=== PATIENT | female | born 1955 | race Hispanic/Latino ===

== ENCOUNTER 2017-08-25 17:02 | Inpatient (IN) | payer MEDICAID, OTHER ==
[2017-08-25] MEDS ORDERED: ZOFRAN IV ONE (19:11)
[2017-08-25] MEDS ORDERED: SUBLIMAZE IV ONE (19:11)
--- NOTE | 2017-08-25 19:13 | Emergency Department Report ---
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 CT SCAN IV pain medicine IV antiemetic medication and blood work.
[2017-08-25 20:10] LABS: Hematocrit 36.2 % (30.3-42.9); Hemoglobin 11.8 gm/dl (10.1-14.3); Mean Corpuscular HGB Conc 33 % (30-34); Mean Corpuscular Hemoglobin 28 pg (28-32); Mean Corpuscular Volume 86 fl (79-97); Platelet Count 410 K/mm3 (140-440); Red Blood Count 4.19 M/mm3 (3.65-5.03); Red Cell Distribution Width 14.5 % (13.2-15.2)
[2017-08-25 20:27] LABS: Alanine Aminotransferase 11 units/L (7-56); Albumin 3.5 g/dL (3.9-5); BUN/Creatinine Ratio 30; Blood Urea Nitrogen 24 mg/dL (7-17); Calcium 8.4 mg/dL (8.4-10.2); Hemolysis Index 8
[2017-08-25 21:02] LABS: Basophils % (Manual) 0 % (0.0-1.8); Total Cells Counted 100
[2017-08-25 21:02] LABS: Bilirubin,Urine NEG (Negative); Blood,Urine SM (Negative); Color,Urine Yellow (Yellow); Mucus,Urine FEW /HPF; Protein,Urine <15 mg/dL mg/dL (Negative); RBC,Urine < 1.0 /HPF (0.0-6.0); Urobilinogen,Urine < 2.0 mg/dL (<2.0)
[2017-08-25 21:03] LABS: Anisocytosis 1+
--- NOTE | 2017-08-25 21:03 | Emergency Department Report ---
ED Abdominal Pain HPI - General Chief Complaint: Abdominal Pain Stated Complaint: LEFT ABDOMINAL PAIN Time Seen by Provider: 08/25/17 19:12 Source: patient Mode of arrival: Ambulatory Limitations: No Limitations - History of Present Illness Initial Comments: Patient is 62-year-old female presents with left abdominal pain she says it's achy and it is a worst over the last couple days. She said that this possible happened from when she fell into the bushes yesterday. She said the fall was accidental. She also has nausea and vomiting. Patient reports that she was living in a boarding home and she was on insulin before she entered the boarding home a sliding scale with also metformin taken 3 times a day. She said they promised that they would get her primary care but she has not had a primary care and has not taken her medication for 3 months. She reports increased thirst and increased in frequency of urination. Patient said her mouth is dry. Pain to left lower quadrant of abdomen is 10 out of 10 and achy. No medication taken. She says she is very thirsty and she drinks a lot of water. Denies any pain with urination. Denies any blood in her urine. Denies any chest pain or shortness of breath. Denies any numbness or tingling to extremities. She said she also has lupus and she is to see Dr. Stout who diagnosed her. She said Dr. Stout is located close to [facility] and is a outreach rep. Her blood sugar is elevated in triage area [id number]. Abdominal pain is intermittent and comes and goes. Nothing makes it better and nothing makes it worse. She was not having any pain upon interview but she says she had pain earlier today. MD Complaint: abdominal pain Onset/Timin -: days(s) Location: [facility] Radiation: none Migration to: no migration Severity: severe Severity scale (0 -10): 10 Quality: aching Consistency: intermittent Improves With: nothing Worsens With: nothing Context: recent injury (she reports that she accidentally fell in bushes yesterday) Associated Symptoms: denies: nausea, vomiting, diarrhea, fever, chills, constipation, dysuria, hematemesis, hematochezia, melena, hematuria, anorexia, syncope Treatments Prior to Arrival: other (none) - Related Data Allergies Allergy/AdvReac Type Severity Reaction Status Date / Time No Known Allergies Allergy Unverified 08/25/17 17:15 ED Review of Systems ROS: Stated complaint: LEFT ABDOMINAL PAIN Other details as noted in HPI Comment: All other systems reviewed and negative Constitutional: no symptoms reported Respiratory: no symptoms reported Cardiovascular: denies: chest pain, palpitations, dyspnea on exertion, orthopnea , edema, syncope, paroxysmal nocturnal dyspnea Endocrine: increased hunger, increased thirst, increased urine, unexplained weight loss (she says she lost 18 pounds over the last 3 months due to poor diet ). denies: excessive sweating, flushing, intolerance to cold, intolerance to heat, unexplained weight gain Gastrointestinal: abdominal pain. denies: nausea, vomiting, diarrhea, constipation, hematemesis, melena, hematochezia Genitourinary: frequency. denies: urgency, dysuria, hematuria, discharge Musculoskeletal: denies: back pain, joint swelling, arthralgia, myalgia Skin: denies: rash Neurological: denies: headache, weakness, numbness, paresthesias, confusion, abnormal gait, vertigo ED Past Medical Hx - Past Medical History Previous Medical History?: Yes Hx Diabetes: Yes Additional medical history: Lupus - Surgical History Past Surgical History?: Yes Hx Cholecystectomy: Yes Hx Appendectomy: Yes - Family History Family history: hypertension - Social History Smoking Status: Former Smoker Substance Use Type: None ED Physical Exam - General Limitations: No Limitations General appearance: alert, in no apparent distress - Head Head exam: Present: atraumatic, normocephalic, normal inspection, other (normal exam) - Eye Eye exam: Present: normal appearance, PERRL, EOMI. Absent: periorbital swelling , periorbital tenderness Pupils: Present: normal accommodation - ENT ENT exam: Present: normal orophraynx, mucous membranes dry, TM's normal bilaterally, normal external ear exam. Absent: normal exam - Neck Neck exam: Present: normal inspection, full ROM, other (no C-spine tenderness). Absent: tenderness, meningismus, lymphadenopathy, thyromegaly - Respiratory Respiratory exam: Present: normal lung sounds bilaterally. Absent: respiratory distress, chest wall tenderness - Cardiovascular Cardiovascular Exam: Present: regular rate, normal rhythm, normal heart sounds. Absent: systolic murmur, diastolic murmur - GI/Abdominal GI/Abdominal exam: Present: soft, normal bowel sounds. Absent: distended, tenderness, guarding, rebound, rigid, organomegaly, mass, bruit, pulsatile mass , hernia - Extremities Exam Extremities exam: Present: normal inspection, full ROM, normal capillary refill , other (no clubbing, cyanosis or edema. No Neurovascular compromise. no laceration, abrasion or contusion. +2 pulses in extremities.). Absent: tenderness, pedal edema, joint swelling, calf tenderness - Back Exam Back exam: Present: normal inspection, full ROM, other (ambulates without any difficulties). Absent: tenderness, CVA tenderness (R), CVA tenderness (L), muscle spasm, paraspinal tenderness, vertebral tenderness, rash noted - Neurological Exam Neurological exam: Present: alert, oriented X3, normal gait, reflexes normal. Absent: motor sensory deficit - Psychiatric Psychiatric exam: Present: normal affect, normal mood - Skin Skin exam: Present: warm, dry, intact, normal color ED Course Vital Signs 08/25/17 08/26/17 08/26/17 17:15 00:28 00:30 Temperature 98.4 F Pulse Rate 109 H 111 H 103 H Respiratory 18 20 17 Rate Blood Pressure 140/65 O2 Sat by Pulse 96 99 96 Oximetry 08/26/17 08/26/17 08/26/17 00:46 01:00 01:16 Temperature Pulse Rate 100 H 91 H 88 Respiratory 19 20 16 Rate Blood Pressure O2 Sat by Pulse 98 98 96 Oximetry 08/26/17 08/26/17 08/26/17 01:30 01:46 02:00 Temperature Pulse Rate 87 88 90 Respiratory 21 18 19 Rate Blood Pressure O2 Sat by Pulse 94 95 94 Oximetry 08/26/17 08/26/17 08/26/17 02:16 02:30 02:46 Temperature Pulse Rate 86 87 87 Respiratory 19 18 21 Rate Blood Pressure 135/61 O2 Sat by Pulse 92 97 96 Oximetry 08/26/17 08/26/17 03:02 03:16 Temperature Pulse Rate Respiratory 22 20 Rate Blood Pressure O2 Sat by Pulse 97 Oximetry - Reevaluation(s) Reevaluation #1: 08/25/17 22:29 Patient with hyperglycemia, ketonuria, glycosuria, decreased CO2 and low venous pH. She is currently getting IV fluid normal saline 3 L and we'll check blood sugar but patient will be admitted Reevaluation #2: 03/28/18 23:12 Patient is still awaiting in CT scan result. She remained stable. Reevaluation #3: 08/26/17 00:[address] Rousseau who is hospitalist. She requested that patient be transferred to main side due to complexity of care. Patient will be admitted to hospital under Dr. rashawn Rousseau who is the hospitalist. Patient transferred to main side room #2 and to be started on insulin drip per Dr. Rousseau ED Medical Decision Making - Lab Data Result diagrams: 08/25/17 19:28 08/26/17 05:43 Lab Results 08/25/17 08/25/17 08/25/17 Range/Units 17:24 19:28 19:28 WBC 9.5 (4.5-11.0) K/mm3 RBC 4.19 (3.65-5.03) M/mm3 Hgb 11.8 (10.1-14.3) gm/dl Hct 36.2 (30.3-42.9) % MCV 86 (79-97) fl MCH 28 (28-32) pg MCHC 33 (30-34) % RDW 14.5 (13.2-15.2) % Plt Count 410 (140-440) K/mm3 Add Manual Diff Complete Total Counted 100 Seg Neuts % (Manual) 81.0 H (40.0-70.0) % Band Neutrophils % 0 % Lymphocytes % (Manual) 8.0 L (13.4-35.0) % Reactive Lymphs % (Man) 0 % Monocytes % (Manual) 8.0 H (0.0-7.3) % Eosinophils % (Manual) 3.0 (0.0-4.3) % Basophils % (Manual) 0 (0.0-1.8) % Metamyelocytes % 0 % Myelocytes % 0 % Promyelocytes % 0 % Blast Cells % 0 % Nucleated RBC % Not Reportable Seg Neutrophils # Man 7.7 (1.8-7.7) K/mm3 Band Neutrophils # 0.0 K/mm3 Lymphocytes # (Manual) 0.8 L (1.2-5.4) K/mm3 Abs React Lymphs (Man) 0.0 K/mm3 Monocytes # (Manual) 0.8 (0.0-0.8) K/mm3 Eosinophils # (Manual) 0.3 (0.0-0.4) K/mm3 Basophils # (Manual) 0.0 (0.0-0.1) K/mm3 Metamyelocytes # 0.0 K/mm3 Myelocytes # 0.0 K/mm3 Promyelocytes # 0.0 K/mm3 Blast Cells # 0.0 K/mm3 WBC Morphology Not Reportable Hypersegmented Neuts Not Reportable Hyposegmented Neuts Not Reportable Hypogranular Neuts Not Reportable Smudge Cells Not Reportable Toxic Granulation Not Reportable Toxic Vacuolation Not Reportable Dohle Bodies Not Reportable Pelger-Huet Anomaly Not Reportable Oliver Rods Not Reportable Platelet Estimate Appears normal Clumped Platelets Not Reportable Plt Clumps, EDTA Not Reportable Large Platelets Not Reportable Giant Platelets Not Reportable Platelet Satelliting Not Reportable Plt Morphology Comment Not Reportable RBC Morphology Not Reportable Dimorphic RBCs Not Reportable Polychromasia Not Reportable Hypochromasia Not Reportable Poikilocytosis Not Reportable Anisocytosis 1+ Microcytosis Not Reportable Macrocytosis Not Reportable Spherocytes Not Reportable Pappenheimer Bodies Not Reportable Sickle Cells Not Reportable Target Cells Not Reportable Tear Drop Cells Not Reportable Ovalocytes Not Reportable Helmet Cells Not Reportable Luna-[place] Bodies Not Reportable Gordon Rings Not Reportable Elisabet Cells Not Reportable Bite Cells Not Reportable Crenated Cell Not Reportable Elliptocytes Not Reportable Acanthocytes (Spur) Not Reportable Rouleaux Not Reportable Hemoglobin C Crystals Not Reportable Schistocytes Not Reportable Malaria parasites Not Reportable Vinicio Bodies Not Reportable Hem Pathologist Commnt No VBG pH (7.320-7.420) Sodium 129 L (137-145) mmol/L Potassium 4.8 (3.6-5.0) mmol/L Chloride 90.1 L (98-107) mmol/L Carbon Dioxide 16 L (22-30) mmol/L Anion Gap 28 mmol/L BUN 24 H (7-17) mg/dL Creatinine 0.8 (0.7-1.2) mg/dL Estimated GFR > 60 ml/min BUN/Creatinine Ratio 30 % Glucose 445 H (65-100) mg/dL POC Glucose 437 H (70-105) Calcium 8.4 (8.4-10.2) mg/dL Total Bilirubin 0.20 (0.1-1.2) mg/dL AST 9 (5-40) units/L ALT 11 (7-56) units/L Alkaline Phosphatase 121 (35-129) units/L Total Protein 7.1 (6.3-8.2) g/dL Albumin 3.5 L (3.9-5) g/dL Albumin/Globulin Ratio 1.0 % Urine Color (Yellow) Urine Turbidity (Clear) Urine pH (5.0-7.0) Ur Specific Mobile (1.003-1.030) Urine Protein (Negative) mg/dL Urine Glucose (UA) (Negative) mg/dL Urine Ketones (Negative) mg/dL Urine Blood (Negative) Urine Nitrite (Negative) Urine Bilirubin (Negative) Urine Urobilinogen (<2.0) mg/dL Ur Leukocyte Esterase (Negative) Urine WBC (Auto) (0.0-6.0) /HPF Urine RBC (Auto) (0.0-6.0) /HPF U Epithel Cells (Auto) (0-13.0) /HPF Urine Mucus /HPF 08/25/17 08/25/17 Range/Units 21:14 Unknown WBC (4.5-11.0) K/mm3 RBC (3.65-5.03) M/mm3 Hgb (10.1-14.3) gm/dl Hct (30.3-42.9) % MCV (79-97) fl MCH (28-32) pg MCHC (30-34) % RDW (13.2-15.2) % Plt Count (140-440) K/mm3 Add Manual Diff Total Counted Seg Neuts % (Manual) (40.0-70.0) % Band Neutrophils % % Lymphocytes % (Manual) (13.4-35.0) % Reactive Lymphs % (Man) % Monocytes % (Manual) (0.0-7.3) % Eosinophils % (Manual) (0.0-4.3) % Basophils % (Manual) (0.0-1.8) % Metamyelocytes % % Myelocytes % % Promyelocytes % % Blast Cells % % Nucleated RBC % Seg Neutrophils # Man (1.8-7.7) K/mm3 Band Neutrophils # K/mm3 Lymphocytes # (Manual) (1.2-5.4) K/mm3 Abs React Lymphs (Man) K/mm3 Monocytes # (Manual) (0.0-0.8) K/mm3 Eosinophils # (Manual) (0.0-0.4) K/mm3 Basophils # (Manual) (0.0-0.1) K/mm3 Metamyelocytes # K/mm3 Myelocytes # K/mm3 Promyelocytes # K/mm3 Blast Cells # K/mm3 WBC Morphology Hypersegmented Neuts Hyposegmented Neuts Hypogranular Neuts Smudge Cells Toxic Granulation Toxic Vacuolation Dohle Bodies Pelger-Huet Anomaly Oliver Rods Platelet Estimate Clumped Platelets Plt Clumps, EDTA Large Platelets Giant Platelets Platelet Satelliting Plt Morphology Comment RBC Morphology Dimorphic RBCs Polychromasia Hypochromasia Poikilocytosis Anisocytosis Microcytosis Macrocytosis Spherocytes Pappenheimer Bodies Sickle Cells Target Cells Tear Drop Cells Ovalocytes Helmet Cells Luna-Pow[place] Bodies Gordon Rings Fate Cells Bite Cells Crenated Cell Elliptocytes Acanthocytes (Spur) Rouleaux Hemoglobin C Crystals Schistocytes Malaria parasites Vinicio Bodies Hem Pathologist Commnt VBG pH 7.311 L (7.320-7.420) Sodium (137-145) mmol/L Potassium (3.6-5.0) mmol/L Chloride (98-107) mmol/L Carbon Dioxide (22-30) mmol/L Anion Gap mmol/L BUN (7-17) mg/dL Creatinine (0.7-1.2) mg/dL Estimated GFR ml/min BUN/Creatinine Ratio % Glucose (65-100) mg/dL POC Glucose (70-105) Calcium (8.4-10.2) mg/dL Total Bilirubin (0.1-1.2) mg/dL AST (5-40) units/L ALT (7-56) units/L Alkaline Phosphatase (35-129) units/L Total Protein (6.3-8.2) g/dL Albumin (3.9-5) g/dL Albumin/Globulin Ratio % Urine Color Yellow (Yellow) Urine Turbidity Clear (Clear) Urine pH 5.0 (5.0-7.0) Ur Specific Mobile 1.026 (1.003-1.030) Urine Protein <15 mg/dl (Negative) mg/dL Urine Glucose (UA) >=500 (Negative) mg/dL Urine Ketones 80 (Negative) mg/dL Urine Blood Sm (Negative) Urine Nitrite Neg (Negative) Urine Bilirubin Neg (Negative) Urine Urobilinogen < 2.0 (<2.0) mg/dL Ur Leukocyte Esterase Sm (Negative) Urine WBC (Auto) 1.0 (0.0-6.0) /HPF Urine RBC (Auto) < 1.0 (0.0-6.0) /HPF U Epithel Cells (Auto) 1.0 (0-13.0) /HPF Urine Mucus Few /HPF Urine culture pending - Radiology Data Radiology results: report reviewed CT scan of the abdomen with IV contrast reveals bilateral adrenal nodules. No acute obstruction or inflammatory processes. - Medical Decision Making ED course: Patient here reporting that she had abdominal pain from falling in the bushes yesterday. She describes her pain as cramping pain but abdominal exam was normal. Patient is a diabetic and was found to have elevated blood sugar via POC and chemistry. Patient also with hyponatremia at 129, low CO2 and venous pH low. Urinalysis show greater than 500 glucose in her urine with 80 ketones. She is small amount of leukocyte Estrace. I discussed this with Dr. Carmen morocho the patient appears to be in diabetic ketoacidosis and will need to be admitted. He agrees. CT scan with no significant findings. Please refer to radiology section for CT scan report and laboratory section for detail and labs. Patient was given 2 L of normal saline and I spoke with Dr. Marita Rousseau who is the hospitalist and she wanted patient to be started on insulin drip and to be transferred over to Main ED. Patient was transferred to Main ED in room # [address] Rousseau assumed care of patient. Admission order to CCU placed. Patient stable and responsive. Critical care attestation.: If time is entered above; I have spent that time in minutes in the direct care of this critically ill patient, excluding procedure time. 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
[2017-08-25] MEDS ORDERED: NACL 0.9% 1000 ML 2,000 ML IV ONE (21:05)
--- NOTE | 2017-08-25 23:16 | Cat Scan Report ---
FINAL REPORT PROCEDURE: CT ABDOMEN PELVIS W CON TECHNIQUE: Computerized axial tomography of the abdomen and pelvis was performed after the IV injection of iodinated nonionic contrast. HISTORY: abdominal pain COMPARISON: No prior studies are available for comparison. FINDINGS: Visualized lower thorax: No significant abnormality. Liver: Normal size and attenuation. Spleen: Normal size and attenuation. Gallbladder and biliary system: There has been cholecystectomy. Pancreas: Normal. Adrenals: There is indeterminate low-density nodule in the left adrenal gland, measuring 17 millimeters. There is adjacent 17 millimeter left adrenal nodule with fat density, compatible with myelolipoma. Indeterminate 11 millimeter right adrenal nodule is present. Kidneys: Normal. GI tract: Scattered colonic diverticula are present. Appendix is not visualized. There are gastric sutures and anastomotic small bowel sutures, likely related to prior bariatric surgery. No bowel obstruction or acute inflammation is seen. Lymph nodes and mesentery: Normal. Vasculature: Normal. Bladder: Normal. Reproductive organs: Uterus is not visualized. Peritoneum: No free fluid or free air is seen. Musculoskeletal structures: There is lumbar levoscoliosis. Other: None. IMPRESSION: No bowel obstruction or acute inflammatory process. Bilateral adrenal nodules
--- NOTE | 2017-08-25 23:57 | History and Physical Report ---
History of Present Illness Date of examination: 08/25/17 History of present illness: 62-year-old woman with a history of lupus, diabetes depression comes emergency room with abdominal pain started 2 days ago, left upper quadrant which he described as sharp pain, constant, intensity 5/10, no radiation, she cannot identify exacerbating or relieving factors. Admits to multiple episodes of nausea and vomiting. She has not taken any medication in 3 months Review of systems Constitutional: no weight loss, chills Ears, eyes, nose, mouth and throat: no nasal congestion, no nasal discharge, no sinus pressure, no vision change, no red eye. Neck: No neck pain or rigidity. Cardiovascular: no chest pain, palpitations Respiratory: No cough, shortness of breath Gastrointestinal: no hematochezia Genitourinary : no dysuria, frequency , no hematuria Musculoskeletal: no joint swelling or muscle ache Integumentary: no rash, no pruritis Neurological: no parathesias, no numbness, no focal weakness Endocrine: no cold or heat intolerance, no polyuria or polydipsia Hematologic/Lymphatic: no easy bruising, no easy bleeding, no gland swelling Allergic/Immunologic: no urticaria, no angioedema. PAST MEDICAL HISTORY: Diabetes, lupus, depression PAST SURGICAL HISTORY: Cholecystectomy, appendectomy SOCIAL HISTORY: Denies alcohol, tobacco, drugs FAMILY HISTORY: Diabetes Medications and Allergies Allergies Allergy/AdvReac Type Severity Reaction Status Date / Time No Known Allergies Allergy Unverified 08/25/17 17:15 Exam - Physical Exam Narrative exam: Gen. appearance: Patient lying in bed, no apparent distress HEENT: Normocephalic, atraumatic, pupils equally round and reactive to light, extraocular movement intact, and no sclericterus,. No JVD or thyromegaly or nodule,neck supple, no carotid bruit ,mucous membranes moist, no exudate or erythema Heart: S1, S2, regular rate and rhythm Lungs: Clear to auscultation bilaterally, breathing comfortable Abdomen: Positive bowel sounds, nontender, nondistended, no organomegaly Extremity: No edema, cyanosis, clubbing Skin: No rash, nodules, warm, dry Neuro: Oriented 3, cranial nerves II-12 intact, speech is fluent, motor and sensory intact - Constitutional Vitals: Temp Pulse Resp BP Pulse Ox 98.4 F 109 H 18 140/65 96 08/25/17 17:15 03/28/18 17:15 08/25/17 17:15 08/25/17 17:15 08/25/17 17:15 Results - Labs CBC & Chem 7: 08/25/17 19:28 08/25/17 19:28 Labs: Abnormal lab results 08/25/17 08/25/17 08/25/17 Range/Units 17:24 19:28 19:28 Seg Neuts % (Manual) 81.0 H (40.0-70.0) % Lymphocytes % (Manual) 8.0 L (13.4-35.0) % Monocytes % (Manual) 8.0 H (0.0-7.3) % Lymphocytes # (Manual) 0.8 L (1.2-5.4) K/mm3 VBG pH (7.320-7.420) Sodium 129 L (137-145) mmol/L Chloride 90.1 L (98-107) mmol/L Carbon Dioxide 16 L (22-30) mmol/L BUN 24 H (7-17) mg/dL Glucose 445 H (65-100) mg/dL POC Glucose 437 H (70-105) Albumin 3.5 L (3.9-5) g/dL 08/25/17 Range/Units 21:14 Seg Neuts % (Manual) (40.0-70.0) % Lymphocytes % (Manual) (13.4-35.0) % Monocytes % (Manual) (0.0-7.3) % Lymphocytes # (Manual) (1.2-5.4) K/mm3 VBG pH 7.311 L (7.320-7.420) Sodium (137-145) mmol/L Chloride (98-107) mmol/L Carbon Dioxide (22-30) mmol/L BUN (7-17) mg/dL Glucose (65-100) mg/dL POC Glucose (70-105) Albumin (3.9-5) g/dL - Imaging and Cardiology CT scan - abdomen: report reviewed CT scan - pelvis: report reviewed Assessment and Plan Assessment DKA Dehydration Pseudo-Hyponatremia Depression Lupus Plan Admit medicine Start insulin drip, IV fluid Monitor fingersticks, blood sugar Consult critical care Check cardiac enzymes, DVT prophylaxis
[2017-08-26] MEDS ORDERED: SODIUM CHLORIDE FLUSH SYRINGE 10 ML IV PRN (00:28)
[2017-08-26] MEDS ORDERED: ZOFRAN IV PRN (00:28)
[2017-08-26] MEDS ORDERED: TYLENOL PO PRN (00:28)
[2017-08-26] MEDS ORDERED: D50W (25GM) Syringe IV PRN (00:30)
[2017-08-26] MEDS ORDERED: D5/0.45NS 1,000 ML IV SCH (01:00)
[2017-08-26] MEDS ORDERED: HumuLIN R 100 UNITS in NACL 0.9% 99 ML IV SCH (01:00)
[2017-08-26] MEDS: NACL 0.9% 1000 ML 1,000 ML IV SCH (02:41)
[2017-08-26] MEDS: PERCOCET 5/325 PO PRN ×4 (03:16→22:30)
[2017-08-26 04:19] LABS: BUN/Creatinine Ratio 27; Blood Urea Nitrogen 16 mg/dL (7-17); Calcium 8.2 mg/dL (8.4-10.2); Hemolysis Index 49
[2017-08-26 06:07] LABS: BUN/Creatinine Ratio 30; Blood Urea Nitrogen 15 mg/dL (7-17); Calcium 7.9 mg/dL (8.4-10.2); Hemolysis Index 0
[2017-08-26] MEDS ORDERED: REGLAN IV PRN (06:10)
--- NOTE | 2017-08-26 09:10 | Consultation ---
History of Present Illness - Reason for Consult Consult date: 08/26/17 DKA - History of Present Illness 62 y/o female admitted with abdominal pain and found to be in DKA. Lives in what sounds like a fdc and has not been compliant with therapy. Per patient this is secondary to cost. Awake and alert. Complains of left sided upper quadrant abdominal pain. Mild swelling present. Soft. Good bowel sounds. per patient had a fall on that side but pain in abdomen was before this. Past History Past Medical History: diabetes Past Surgical History: cholecystectomy, bowel surgery Social history: no significant social history Family history: no significant family history Medications and Allergies Allergies Allergy/AdvReac Type Severity Reaction Status Date / Time No Known Allergies Allergy Unverified 08/25/17 17:15 Active Meds: Active Medications Acetaminophen (Tylenol) 650 mg PO Q4H PRN PRN Reason: Pain MILD(1-3)/Fever >100.5/DAVID Dextrose (D50w (25gm) Syringe) 0 ml IV ONCE PRN PRN Reason: Hypoglycemia Enoxaparin Sodium (Lovenox) 40 mg SUB-Q QDAY ELROY Dextrose/Sodium Chloride (D5/0.45ns) 1,000 mls @ 150 mls/hr IV DIRECT ELROY Last Admin: 08/26/17 08:15 Dose: 150 mls/hr Sodium Chloride (Nacl 0.9% 1000 Ml) 1,000 mls @ 150 mls/hr IV DIRECT ELROY Last Admin: 08/26/17 02:41 Dose: 150 mls/hr Insulin Human Regular 100 (units/ Sodium Chloride) 100 mls @ 1 mls/hr IV TITR ELROY; Protocol Last Titration: 08/26/17 07:10 Dose: 2 units/hr, 2 mls/hr Insulin Human NPH (Humulin N) 11 unit SUB-Q BIDDIAB ELROY Insulin Human Regular (Humulin R) 0 units SUB-Q ACHS ELROY; Protocol Metoclopramide HCl (Reglan) 10 mg IV Q8H PRN PRN Reason: Nausea And Vomiting Ondansetron HCl (Zofran) 4 mg IV Q8H PRN PRN Reason: Nausea And Vomiting Last Admin: 08/26/17 01:10 Dose: 4 mg Oxycodone/Acetaminophen (Percocet 5/325) 1 tab PO Q6H PRN PRN Reason: Pain, Moderate (4-6) Last Admin: 08/26/17 03:16 Dose: 1 tab Sodium Chloride (Sodium Chloride Flush Syringe 10 Ml) 10 ml IV BID ELROY Sodium Chloride (Sodium Chloride Flush Syringe 10 Ml) 10 ml IV PRN PRN PRN Reason: LINE FLUSH Review of Systems All systems: negative Constitutional: other (abdominal pain) Exam - Constitutional Vitals: Temp Pulse Resp BP Pulse Ox 97.8 F 84 16 107/56 95 08/26/17 08:34 08/26/17 08:00 08/26/17 08:00 08/26/17 08:00 08/26/17 08:00 General appearance: Present: no acute distress, well-nourished, obese, disheveled - EENT Eyes: Present: PERRL, EOM intact ENT: hearing intact, clear oral mucosa - Neck Neck: Present: supple - Respiratory Respiratory effort: normal Respiratory: bilateral: CTA - Cardiovascular Rhythm: regular Heart Sounds: Present: S1 & S2 - Extremities Extremities: no ischemia, pulses intact, pulses symmetrical - Abdominal General gastrointestinal: Present: soft, tender (left upper quadrant) Female genitourinary: Present: deferred - Rectal Rectal Exam: deferred - Integumentary Integumentary: Present: clear, warm, dry - Psychiatric Psychiatric: appropriate mood/affect - Neurologic Neurologic: CNII-XII intact - Allied Health Allied health notes reviewed: nursing Results - Labs CBC & Chem 7: 08/25/17 19:28 08/26/17 05:43 Labs: Abnormal lab results 08/25/17 08/25/17 08/25/17 Range/Units 17:24 19:28 19:28 Seg Neuts % (Manual) 81.0 H (40.0-70.0) % Lymphocytes % (Manual) 8.0 L (13.4-35.0) % Monocytes % (Manual) 8.0 H (0.0-7.3) % Lymphocytes # (Manual) 0.8 L (1.2-5.4) K/mm3 VBG pH (7.320-7.420) Sodium 129 L (137-145) mmol/L Chloride 90.1 L (98-107) mmol/L Carbon Dioxide 16 L (22-30) mmol/L BUN 24 H (7-17) mg/dL Creatinine (0.7-1.2) mg/dL Glucose 445 H (65-100) mg/dL POC Glucose 437 H (70-105) Calcium (8.4-10.2) mg/dL Phosphorus (2.5-4.5) mg/dL Albumin 3.5 L (3.9-5) g/dL 08/25/17 08/26/17 08/26/17 Range/Units 21:14 01:08 02:39 Seg Neuts % (Manual) (40.0-70.0) % Lymphocytes % (Manual) (13.4-35.0) % Monocytes % (Manual) (0.0-7.3) % Lymphocytes # (Manual) (1.2-5.4) K/mm3 VBG pH 7.311 L (7.320-7.420) Sodium (137-145) mmol/L Chloride (98-107) mmol/L Carbon Dioxide (22-30) mmol/L BUN (7-17) mg/dL Creatinine (0.7-1.2) mg/dL Glucose (65-100) mg/dL POC Glucose 413 H 363 H (70-105) Calcium (8.4-10.2) mg/dL Phosphorus (2.5-4.5) mg/dL Albumin (3.9-5) g/dL 08/26/17 08/26/17 08/26/17 Range/Units 03:48 03:49 05:05 Seg Neuts % (Manual) (40.0-70.0) % Lymphocytes % (Manual) (13.4-35.0) % Monocytes % (Manual) (0.0-7.3) % Lymphocytes # (Manual) (1.2-5.4) K/mm3 VBG pH (7.320-7.420) Sodium 133 L (137-145) mmol/L Chloride (98-107) mmol/L Carbon Dioxide 21 L (22-30) mmol/L BUN (7-17) mg/dL Creatinine 0.6 L (0.7-1.2) mg/dL Glucose 181 H (65-100) mg/dL POC Glucose 206 H 109 H (70-105) Calcium 8.2 L (8.4-10.2) mg/dL Phosphorus 2.10 L (2.5-4.5) mg/dL Albumin (3.9-5) g/dL 08/26/17 08/26/17 08/26/17 Range/Units 05:43 06:17 07:12 Seg Neuts % (Manual) (40.0-70.0) % Lymphocytes % (Manual) (13.4-35.0) % Monocytes % (Manual) (0.0-7.3) % Lymphocytes # (Manual) (1.2-5.4) K/mm3 VBG pH (7.320-7.420) Sodium 134 L (137-145) mmol/L Chloride (98-107) mmol/L Carbon Dioxide (22-30) mmol/L BUN (7-17) mg/dL Creatinine 0.5 L (0.7-1.2) mg/dL Glucose (65-100) mg/dL POC Glucose 120 H 160 H (70-105) Calcium 7.9 L (8.4-10.2) mg/dL Phosphorus (2.5-4.5) mg/dL Albumin (3.9-5) g/dL - Imaging and Cardiology CT scan - abdomen: report reviewed CT scan - pelvis: report reviewed Assessment and Plan 62 y/o female with DKA 1. Ordered BID NPH 6 units based on the total that she from last night 2. Started moderate dose sliding scale 3. Will stop Insulin drip 2 hours after giving long acting] 4. Ordered CC diet 5. As long as patient tolerates diet, stable for floor 6. Primary to continue work up for abdominal pain. CCT 31 minutes.
[2017-08-26] MEDS: LOVENOX SUB-Q SCH (09:57)
[2017-08-26] MEDS ORDERED: SODIUM CHLORIDE FLUSH SYRINGE 10 ML IV SCH (10:00)
[2017-08-26 10:23] LABS: BUN/Creatinine Ratio 26; Blood Urea Nitrogen 13 mg/dL (7-17)
[2017-08-26 10:25] LABS: Hemolysis Index 14
[2017-08-26] MEDS: HumuLIN R SUB-Q SCH ×3 (11:46→22:31)
--- NOTE | 2017-08-26 13:01 | Progress Note ---
Assessment and Plan Assessment and plan: Patient is 62-year-old woman with a history of lupus, depression and insulin- dependent diabetes mellitus who presented with abdominal pains, nausea/vomiting and admitted for DKA -DKA: add long acting insulin -N/V related to above: treat with iv reglan -Dehydration: treat with ivf -Pseudo-Hyponatremia -Lupus, chronic -DVT/GI ppx reviewed Insulin drip stopped, ok to downgrade for CCM specialist History Interval history: Patient was seen and examined. Follow-up on current diagnosis of abdominal pain and nausea vomiting. Overnight uneventful. Patient denies any chest pain , shortness breath, or severe headaches. Imaging, nursing note, chart, labs and old chart reviewed. Discussed with patient. Hospitalist Physical - Physical exam Narrative exam: GEN: WDWN, NAD, AWAKE, ALERT, ORIENTATED 3. HEENT: NCAT, EOMI, PERRL, OP Clear NECK: supple, no adenopathy, no thyromegaly, no JVD CVS/HEART: RRR, NORMAL S1S2, pulses present bilaterally CHEST/LUNGS: CTA B, Symmetrical chest expansion, good air entry bilaterally GI/Abdomen: soft, NTND, good bowel sounds, no guarding or rebound /Bladder: no suprapubic tenderness, no CVA or paraspinal tenderness EXT/Skin: no c/c/e, no obvious rash MSK: FROM x 4 Neuro: CN 2-12 grossly intact, no new focal deficits Psych: calm - Constitutional Vitals: Temp Pulse Resp BP Pulse Ox 97.6 F 88 16 107/56 95 08/26/17 12:00 08/26/17 10:00 08/26/17 08:00 08/26/17 08:00 08/26/17 08:00 General appearance: Present: no acute distress, well-nourished, obese, disheveled Results - Labs CBC & Chem 7: 08/25/17 19:28 08/26/17 16:14 Labs: Laboratory Last Values WBC 9.5 K/mm3 (4.5-11.0) 08/25/17 19:28 RBC 4.19 M/mm3 (3.65-5.03) 08/25/17 19:28 Hgb 11.8 gm/dl (10.1-14.3) 08/25/17 19:28 Hct 36.2 % (30.3-42.9) 08/25/17 19:28 MCV 86 fl (79-97) 08/25/17 19: MCH 28 pg (28-32) 08/25/17 19: MCHC 33 % (30-34) 08/25/17 19:28 RDW 14.5 % (13.2-15.2) 08/25/17 19:28 Plt Count 410 K/mm3 (140-440) 08/25/17 19:28 Add Manual Diff Complete 08/25/17 19:28 Total Counted 100 08/25/17 19:28 Seg Neuts % (Manual) 81.0 % (40.0-70.0) H 08/25/17 19:28 Band Neutrophils % 0 % 08/25/17 19:28 Lymphocytes % (Manual) 8.0 % (13.4-35.0) L 08/25/17 19:28 Reactive Lymphs % (Man) 0 % 08/25/17 19:28 Monocytes % (Manual) 8.0 % (0.0-7.3) H 08/25/17 19:28 Eosinophils % (Manual) 3.0 % (0.0-4.3) 08/25/17 19:28 Basophils % (Manual) 0 % (0.0-1.8) 08/25/17 19:28 Metamyelocytes % 0 % 08/25/17 19:28 Myelocytes % 0 % 08/25/17 19:28 Promyelocytes % 0 % 08/25/17 19:28 Blast Cells % 0 % 08/25/17 19:28 Nucleated RBC % Not Reportable 08/25/17 19:28 Seg Neutrophils # Man 7.7 K/mm3 (1.8-7.7) 08/25/17 19:28 Band Neutrophils # 0.0 K/mm3 08/25/17 19:28 Lymphocytes # (Manual) 0.8 K/mm3 (1.2-5.4) L 08/25/17 19:28 Abs React Lymphs (Man) 0.0 K/mm3 08/25/17 19:28 Monocytes # (Manual) 0.8 K/mm3 (0.0-0.8) 08/25/17 19:28 Eosinophils # (Manual) 0.3 K/mm3 (0.0-0.4) 08/25/17 19:28 Basophils # (Manual) 0.0 K/mm3 (0.0-0.1) 08/25/17 19:28 Metamyelocytes # 0.0 K/mm3 08/25/17 19:28 Myelocytes # 0.0 K/mm3 08/25/17 19:28 Promyelocytes # 0.0 K/mm3 08/25/17 19:28 Blast Cells # 0.0 K/mm3 08/25/17 19:28 WBC Morphology Not Reportable 08/25/17 19:28 Hypersegmented Neuts Not Reportable 08/25/17 19:28 Hyposegmented Neuts Not Reportable 08/25/17 19:28 Hypogranular Neuts Not Reportable 08/25/17 19:28 Smudge Cells Not Reportable 08/25/17 19:28 Toxic Granulation Not Reportable 08/25/17 19:28 Toxic Vacuolation Not Reportable 08/25/17 19:28 Dohle Bodies Not Reportable 08/25/17 19:28 Pelger-Huet Anomaly Not Reportable 08/25/17 19:28 Oliver Rods Not Reportable 08/25/17 19:28 Platelet Estimate Appears normal 08/25/17 19:28 Clumped Platelets Not Reportable 08/25/17 19:28 Plt Clumps, EDTA Not Reportable 08/25/17 19:28 Large Platelets Not Reportable 08/25/17 19:28 Giant Platelets Not Reportable 08/25/17 19:28 Platelet Satelliting Not Reportable 08/25/17 19:28 Plt Morphology Comment Not Reportable 08/25/17 19:28 RBC Morphology Not Reportable 08/25/17 19:28 Dimorphic RBCs Not Reportable 08/25/17 19:28 Polychromasia Not Reportable 08/25/17 19:28 Hypochromasia Not Reportable 08/25/17 19:28 Poikilocytosis Not Reportable 08/25/17 19:28 Anisocytosis 1+ 08/25/17 19:28 Microcytosis Not Reportable 08/25/17 19:28 Macrocytosis Not Reportable 08/25/17 19:28 Spherocytes Not Reportable 08/25/17 19:28 Pappenheimer Bodies Not Reportable 08/25/17 19:28 Sickle Cells Not Reportable 08/25/17 19:28 Target Cells Not Reportable 08/25/17 19:28 Tear Drop Cells Not Reportable 08/25/17 19:28 Ovalocytes Not Reportable 08/25/17 19:28 Helmet Cells Not Reportable 08/25/17 19:28 [place] Bodies Not Reportable 08/25/17 19:28 Rhododendron Rings Not Reportable 08/25/17 19:28 [place] Cells Not Reportable 08/25/17 19:28 Bite Cells Not Reportable 08/25/17 19:28 Crenated Cell Not Reportable 08/25/17 19:28 Elliptocytes Not Reportable 08/25/17 19:28 Acanthocytes (Spur) Not Reportable 08/25/17 19:28 Rouleaux Not Reportable 08/25/17 19:28 Hemoglobin C Crystals Not Reportable 08/25/17 19:28 Schistocytes Not Reportable 08/25/17 19:28 Malaria parasites Not Reportable 08/25/17 19:28 Vinicio Bodies Not Reportable 08/25/17 19:28 Hem Pathologist Commnt No 08/25/17 19:28 VBG pH 7.311 (7.320-7.420) L 08/25/17 21:14 Sodium 135 mmol/L (137-145) L 08/26/17 09:17 Potassium 3.8 mmol/L (3.6-5.0) 08/26/17 09:17 Chloride 101.7 mmol/L (98-107) 08/26/17 09:17 Carbon Dioxide 21 mmol/L (22-30) L 08/26/17 09:17 Anion Gap 16 mmol/L 08/26/17 09:17 BUN 13 mg/dL (7-17) 08/26/17 09:17 Creatinine 0.5 mg/dL (0.7-1.2) L 08/26/17 09:17 Estimated GFR > 60 ml/min 08/26/17 09:17 BUN/Creatinine Ratio 26 % 08/26/17 09:17 Glucose 151 mg/dL (65-100) H 08/26/17 09:17 POC Glucose 160 (70-105) H 08/26/17 07:12 Calcium 8.0 mg/dL (8.4-10.2) L 08/26/17 09:17 Phosphorus 2.10 mg/dL (2.5-4.5) L 08/26/17 03:49 Magnesium 2.10 mg/dL (1.7-2.3) 08/26/17 03:49 Total Bilirubin 0.20 mg/dL (0.1-1.2) 08/25/17 19:28 AST 9 units/L (5-40) 08/25/17 19:28 ALT 11 units/L (7-56) 08/25/17 19:28 Alkaline Phosphatase 121 units/L (35-129) 08/25/17 19:28 Total Protein 7.1 g/dL (6.3-8.2) 08/25/17 19:28 Albumin 3.5 g/dL (3.9-5) L 08/25/17 19:28 Albumin/Globulin Ratio 1.0 % 08/25/17 19:28 Urine Color Yellow (Yellow) 08/25/17 Unknown Urine Turbidity Clear (Clear) 08/25/17 Unknown Urine pH 5.0 (5.0-7.0) 08/25/17 Unknown Ur Specific [place] 1.026 (1.003-1.030) 08/25/17 Unknown Urine Protein <15 mg/dl mg/dL (Negative) 08/25/17 Unknown Urine Glucose (UA) >=500 mg/dL (Negative) 08/25/17 Unknown Urine Ketones 80 mg/dL (Negative) 08/25/17 Unknown Urine Blood Sm (Negative) 08/25/17 Unknown Urine Nitrite Neg (Negative) 08/25/17 Unknown Urine Bilirubin Neg (Negative) 08/25/17 Unknown Urine Urobilinogen < 2.0 mg/dL (<2.0) 08/25/17 Unknown Ur Leukocyte Esterase Sm (Negative) 08/25/17 Unknown Urine WBC (Auto) 1.0 /HPF (0.0-6.0) 08/25/17 Unknown Urine RBC (Auto) < 1.0 /HPF (0.0-6.0) 08/25/17 Unknown U Epithel Cells (Auto) 1.0 /HPF (0-13.0) 08/25/17 Unknown Urine Mucus Few /HPF 08/25/17 Unknown
[2017-08-26] MEDS ORDERED: ROBITUSSIN PO ONE (16:00)
[2017-08-26 16:54] LABS: BUN/Creatinine Ratio 17; Blood Urea Nitrogen 12 mg/dL (7-17); Calcium 8.3 mg/dL (8.4-10.2); Hemolysis Index 31
[2017-08-27] MEDS: TESSALON PERLES PO SCH ×3 (01:09→14:35)
[2017-08-27] MEDS: PERCOCET 5/325 PO PRN ×3 (03:38→12:35)
[2017-08-27] MEDS: NACL 0.9% 1000 ML 1,000 ML IV SCH (04:21)
[2017-08-27 07:24] LABS: Hemoglobin 10.5 gm/dl (10.1-14.3); Mean Corpuscular HGB Conc 33 % (30-34); Mean Corpuscular Hemoglobin 29 pg (28-32); Mean Corpuscular Volume 87 fl (79-97); Platelet Count 316 K/mm3 (140-440); Red Blood Count 3.68 M/mm3 (3.65-5.03); Red Cell Distribution Width 14.9 % (13.2-15.2)
[2017-08-27 07:45] LABS: BUN/Creatinine Ratio 20; Blood Urea Nitrogen 10 mg/dL (7-17); Calcium 8.1 mg/dL (8.4-10.2); Hemolysis Index 13
[2017-08-27] MEDS: HumuLIN R SUB-Q SCH ×3 (08:42→17:10)
[2017-08-27 09:33] LABS: Anisocytosis 1+; Band Neutrophils # (Manual) 0.2 K/mm3; Basophils % (Manual) 0 % (0.0-1.8); Total Cells Counted 100
[2017-08-27] MEDS: LOVENOX SUB-Q SCH (09:52)
[2017-08-27] MEDS ORDERED: Fluarix Quad 2017-2018(36 MOS+ IM ONE (12:00)
--- NOTE | 2017-08-27 13:00 | Discharge Summary ---
Providers - Providers Date of Admission: 08/25/17 23:57 Date of discharge: 08/27/17 Attending physician: BUD NAJERA Primary care physician: OPERATION SUPERVISOR Hospitalization Condition: Stable Hospital course: Patient is 62-year-old woman with a history of lupus, depression and insulin- dependent diabetes mellitus who presented with abdominal pains, nausea/vomiting and admitted for DKA -DKA: add long acting insulin -N/V related to above and gastroparesis: treat with iv reglan, risk discussed in detail, diet discussed in details, -Dehydration: treat with ivf -Pseudo-Hyponatremia -Lupus, chronic -DVT/GI ppx reviewed Her main issue is noncompliance counseling done. D/W case management, ? homelessness (she doesn't know her address) Disposition: DC- TO HOME OR SELFCARE Time spent for discharge: 35 minutes Core Measure Documentation - Palliative Care Palliative Care/ Comfort Measures: Not Applicable - Core Measures Any of the following diagnoses?: none - VTE Discharge Requirements Deep Vein Thrombosis/Pulmonary Embolism Present on Admission: No Has pt received <5 days of overlap therapy or INR<2.0: No Anticoagulant overlap therapy prescribed at discharge: No Contraindication No Overlap Therapy order at DC: Not Indicated Exam - Physical Exam Narrative exam: GEN: WDWN, NAD, unkempt AWAKE, ALERT, ORIENTATED 3. HEENT: NCAT, EOMI, PERRL, OP Clear NECK: supple, no adenopathy, no thyromegaly, no JVD CVS/HEART: RRR, NORMAL S1S2, pulses present bilaterally CHEST/LUNGS: CTA B, Symmetrical chest expansion, good air entry bilaterally GI/Abdomen: soft, NTND, good bowel sounds, no guarding or rebound /Bladder: no suprapubic tenderness, no CVA or paraspinal tenderness EXT/Skin: no c/c/e, no obvious rash but diffuse small (ani size) skin tears on stomach, left mandible, arms, legs, etc...poa MSK: FROM x 4 Neuro: CN 2-12 grossly intact, no new focal deficits Psych: calm - Constitutional Vitals: Temp Pulse Resp BP Pulse Ox 98.7 F 72 18 141/69 94 08/27/17 07:40 08/27/17 07:40 08/27/17 12:35 08/27/17 07:40 08/27/17 08:50 Plan Activity: other (no strenous activity until cleared by pcp) Diet: low salt, diabetic Special Instructions: record blood sugar diary (three times a day with meals and at bedtime) Follow up with: PRIMARY CARE,MD [Primary Care Provider] - 3-5 Days Prescriptions: Insulin NPH, Human [NovoLIN N] 7 unit SUB-Q BIDDIAB #1 vial Insulin Regular, Human [HumuLIN R] 1 units SUB-Q ACHS PRN #1 vial PRN Reason: Hyperglycemia Metoclopramide [Reglan ORAL LIQ] 10 mg PO Q8H PRN #5 day PRN Reason: Nausea And Vomiting oxyCODONE /ACETAMINOPHEN [Percocet 5/325 mg] 1 tab PO Q4H PRN #12 tablet PRN Reason: Pain , Severe (7-10)
[2017-08-27 15:43] VITALS: BP 151/79
== END 2017-08-27 18:10 | disposition home or self-care (01) | DRG 638 ==
LOC: ED 17:02 → EDBD 23:57 → CC1 23:57 → 3A 08-26 16:54
PROVIDERS: ADMIT Internal Medicine; ATTEND Internal Medicine
PROC: 3E0234Z Introduction of Serum, Toxoid and Vaccine into Muscle, Percutaneous Approach (ICD-10-PCS; principal; 2017-08-27)
DX: E11.10 Type 2 diabetes mellitus with ketoacidosis without coma (principal); E87.1 Hypo-osmolality and hyponatremia; F32.9 Major depressive disorder, single episode, unspecified; E11.9 Type 2 diabetes mellitus without complications; E11.43 Type 2 diabetes mellitus with diabetic autonomic (poly)neuropathy; K31.84 Gastroparesis; E86.0 Dehydration; R82.4 Acetonuria; M32.8 Other forms of systemic lupus erythematosus; Z91.14 Patient's other noncompliance with medication regimen; Z71.89 Other specified counseling; Z90.49 Acquired absence of other specified parts of digestive tract; Z79.4 Long term (current) use of insulin; Z82.49 Family history of ischemic heart disease and other diseases of the circulatory system; Z83.3 Family history of diabetes mellitus; Z23 Encounter for immunization
CPT/HCPCS: 36415; 74177; 80048; 80053; 81001; 82805; 82962; 83735; 84100; 85007; 85025; 87086; 90686; J1650; J1815; J2405; J2765; J3010; J7030; Q9967

== ENCOUNTER 2017-09-08 13:26 | Emergency (ER) | payer MEDICAID ==
[2017-09-08 14:27] LABS: BUN/Creatinine Ratio 29; Basophils % (Auto) 0.4 % (0.0-1.8); Blood Urea Nitrogen 23 mg/dL (7-17); Calcium 8.7 mg/dL (8.4-10.2); Eosinophils # (Auto) 0.1 K/mm3 (0.0-0.4); Eosinophils % (Auto) 0.9 % (0.0-4.3); Hematocrit 36.6 % (30.3-42.9); Hemoglobin 11.8 gm/dl (10.1-14.3); Hemolysis Index 3; Lymphocytes # (Auto) 1.1 K/mm3 (1.2-5.4); Lymphocytes % (Auto) 12.4 % (13.4-35.0); Mean Corpuscular HGB Conc 32 % (30-34); Mean Corpuscular Hemoglobin 28 pg (28-32); Mean Corpuscular Volume 88 fl (79-97); Monocytes # (Auto) 0.4 K/mm3 (0.0-0.8); Monocytes % (Auto) 5.1 % (0.0-7.3); Platelet Count 334 K/mm3 (140-440); Red Blood Count 4.18 M/mm3 (3.65-5.03); Red Cell Distribution Width 15.2 % (13.2-15.2)
[2017-09-08] MEDS ORDERED: NACL 0.9% 1000 ML 1,000 ML IV ONE ×3 (14:45→19:52)
[2017-09-08] MEDS ORDERED: NACL 0.9% 1000 ML 1,000 ML ONE (14:58)
[2017-09-08 15:12] LABS: Bilirubin,Urine NEG (Negative); Blood,Urine NEG (Negative); Color,Urine Straw (Yellow); Mucus,Urine FEW /HPF; Protein,Urine <15 mg/dL mg/dL (Negative); Urobilinogen,Urine < 2.0 mg/dL (<2.0)
[2017-09-08 15:20] LABS: Amphetamine Screen,Urine PRESUMPTIVE NEGATIVE; Benzodiazepines Screen,Urine PRESUMPTIVE NEGATIVE; Cannabinoid Screen,Urine PRESUMPTIVE NEGATIVE; Cocaine Screen,Urine PRESUMPTIVE NEGATIVE; Methadone Screen,Urine PRESUMPTIVE NEGATIVE; Opiate Screen,Urine PRESUMPTIVE NEGATIVE
[2017-09-08] MEDS ORDERED: HumuLIN R IV ONE ×2 (16:35→23:08)
--- NOTE | 2017-09-08 16:45 | Emergency Department Report ---
ED Psych HPI - General Chief Complaint: Psych Stated Complaint: SUICIDAL Time Seen by Provider: 09/08/17 16:34 Source: patient, family Mode of arrival: Ambulatory - History of Present Illness Initial Comments: Patient is 62 years old female history of depression presented to the ER for evaluation of suicidal thoughts and attempt. Patient stated that she has nothing to live for. Patient last night tried to kill herself by walking into traffic. She also had history of diabetes and hypertension. She was on insulin but she does not remember the last time she took her insulin because she does not have any money to get her prescription. Patient denied any visual or auditory hallucination. No homicidal ideation. MD Complaint: suicidal ideation, feels depressed -: Gradual Associated Psychiatric Symptoms: depression, suicidal ideation Quality: constant Associated Symptoms: denies: confusion, headache, shortness of breath, nausea, vomiting, syncope, insomnia If Self Harm: admits thoughts of, has plan, has acted on plan - Related Data Previous Rx's Medication Instructions Recorded Last Taken Type Acetaminophen [Acetaminophen TAB] 325 mg PO Q4H PRN #5 tablet 08/27/17 Unknown Rx Insulin NPH, Human [NovoLIN N] 7 unit SUB-Q BIDDIAB #1 vial 08/27/17 Unknown Rx Insulin Regular, Human [HumuLIN R] 1 units SUB-Q ACHS PRN #1 vial 08/27/17 Unknown Rx Metoclopramide [Reglan ORAL LIQ] 10 mg PO Q8H PRN #5 day 08/27/17 Unknown Rx oxyCODONE /ACETAMINOPHEN [Percocet 1 tab PO Q4H PRN #12 tablet 08/27/17 Unknown Rx 5/325 mg] Allergies Allergy/AdvReac Type Severity Reaction Status Date / Time No Known Allergies Allergy Unverified 08/25/17 17:15 ED Review of Systems ROS: Stated complaint: SUICIDAL Other details as noted in HPI Comment: All other systems reviewed and negative Constitutional: denies: chills, fever Respiratory: denies: cough, orthopnea, shortness of breath, SOB with exertion Cardiovascular: denies: chest pain, palpitations, dyspnea on exertion Gastrointestinal: denies: abdominal pain, nausea, vomiting, diarrhea, constipation, hematemesis Neurological: denies: headache, weakness, numbness, paresthesias, confusion Psychiatric: depression, suicidal thoughts. denies: auditory hallucinations, visual hallucinations, homicidal thoughts ED Past Medical Hx - Past Medical History Hx Hypertension: Yes Hx Congestive Heart Failure: No Hx Diabetes: Yes Hx Asthma: No Hx COPD: No Hx HIV: No Additional medical history: Lupus - Surgical History Hx Cholecystectomy: Yes Hx Appendectomy: Yes - Social History Smoking Status: Former Smoker Substance Use Type: None - Medications Home Medications: Home Medications Medication Instructions Recorded Confirmed Last Taken Type Acetaminophen [Acetaminophen TAB] 325 mg PO Q4H PRN #5 tablet 08/27/17 Unknown Rx Insulin NPH, Human [NovoLIN N] 7 unit SUB-Q BIDDIAB #1 vial 08/27/17 Unknown Rx Insulin Regular, Human [HumuLIN R] 1 units SUB-Q ACHS PRN #1 vial 08/27/17 Unknown Rx Metoclopramide [Reglan ORAL LIQ] 10 mg PO Q8H PRN #5 day 08/27/17 Unknown Rx oxyCODONE /ACETAMINOPHEN [Percocet 1 tab PO Q4H PRN #12 tablet 08/27/17 Unknown Rx 5/325 mg] ED Physical Exam - General Limitations: No Limitations General appearance: alert, in no apparent distress - Head Head exam: Present: atraumatic, normocephalic, normal inspection - Eye Eye exam: Present: normal appearance, PERRL - ENT ENT exam: Present: normal exam, normal orophraynx, mucous membranes moist - Neck Neck exam: Present: normal inspection, full ROM. Absent: tenderness, meningismus, lymphadenopathy, thyromegaly - Respiratory Respiratory exam: Present: normal lung sounds bilaterally. Absent: respiratory distress, wheezes, rales, rhonchi, stridor, accessory muscle use, decreased breath sounds, prolonged expiratory - Cardiovascular Cardiovascular Exam: Present: regular rate, normal rhythm, normal heart sounds - GI/Abdominal GI/Abdominal exam: Present: soft, normal bowel sounds. Absent: distended, tenderness, guarding, rebound, rigid, organomegaly, mass, bruit, pulsatile mass , hernia - Extremities Exam Extremities exam: Present: normal inspection, full ROM, normal capillary refill - Back Exam Back exam: Present: normal inspection, full ROM. Absent: tenderness, CVA tenderness (R), CVA tenderness (L), muscle spasm, paraspinal tenderness, vertebral tenderness - Neurological Exam Neurological exam: Present: alert, oriented X3, CN II-XII intact, normal gait, reflexes normal - Psychiatric Psychiatric exam: Present: depressed, suicidal ideation. Absent: anxious, flat affect, manic, homicidal ideation - Skin Skin exam: Present: warm, intact, normal color ED Course Vital Signs 09/08/17 09/08/17 09/08/17 13:39 16:43 16:46 Temperature 97.8 F Pulse Rate 78 Respiratory 16 Rate Blood Pressure 163/79 148/65 O2 Sat by Pulse 98 99 99 Oximetry 09/08/17 09/08/17 09/08/17 17:00 17:16 17:30 Temperature Pulse Rate Respiratory Rate Blood Pressure 127/53 166/88 127/53 O2 Sat by Pulse 99 98 96 Oximetry - Reevaluation(s) Reevaluation #1: 09/08/17 19:54 Patient has stated that she is feeling better. Her blood glucose now is 292. ED Medical Decision Making - Lab Data Result diagrams: 09/08/17 13:54 09/08/17 19:12 Critical care attestation.: If time is entered above; I have spent that time in minutes in the direct care of this critically ill patient, excluding procedure time. ED Disposition Clinical Impression: Suicidal ideation, Hyperglycemia Disposition: DC/TX-65 PSY HOSP/PSY UNIT Is pt being admited?: No Condition: Stable Referrals: PRIMARY CARE, [Primary Care Provider] - 3-5 Days
[2017-09-08] MEDS ORDERED: REGLAN ONE (19:31)
[2017-09-08 19:42] LABS: BUN/Creatinine Ratio 34; Blood Urea Nitrogen 17 mg/dL (7-17); Hemolysis Index 3
[2017-09-08] MEDS ORDERED: HumuLIN R ONE (22:55)
[2017-09-09] MEDS ORDERED: HumuLIN R ONE ×6 (01:46→17:49)
[2017-09-09] MEDS ORDERED: HumuLIN R SUB-Q ONE ×3 (01:50→11:50)
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
[2017-09-09] MEDS: ZOLOFT PO SCH (13:26)
[2017-09-09] MEDS: HumuLIN R SUB-Q SCH (17:20)
[2017-09-09] MEDS ORDERED: HumaLOG SUB-Q ONE (17:46)
[2017-09-09] MEDS ORDERED: TYLENOL ONE (20:16)
[2017-09-09] MEDS ORDERED: LANTUS SUB-Q SCH (22:00)
[2017-09-10] MEDS ORDERED: HumuLIN R ONE ×2 (08:16→12:15)
[2017-09-10] MEDS: HumuLIN R SUB-Q SCH ×2 (08:20→12:20)
[2017-09-10] MEDS: ZOLOFT PO SCH (10:50)
[2017-09-10 12:28] VITALS: BP 134/68
--- NOTE | 2017-09-10 13:04 | Progress Note ---
Subjective - Reason for Consult Consult date: 09/10/17 Reason for consult: Psychiatry Follow-up - Chief Complaint Chief complaint: "When can I be transferred" 62 years old female history of depression presented to the ER for evaluation of SI's and attempt. Today the patient is calm and cooperative during the assessment. She stated that she needs to be transferred soon. She stated that she want help for her depression. Per the patient, "being inpatient is what I need." She denies SI/HI's and AVH's. She denies any side effects of her medication. Mental Status Exam - Vital signs Last Vital Signs Temp 97.4 F L 09/10/17 10:00 Pulse 89 09/10/17 10:00 Resp 18 09/10/17 10:00 BP 134/68 09/10/17 10:00 Pulse Ox 96 09/10/17 10:00 - Exam Narrative exam: MSE: Appearance: calm, cooperative Behavior: regular eye contact Speech: regular rate and tone Mood: "depressed" withdrawn Affect: flat Thought Process: circumstantial Thought Content: denies SI/HI's and AVH's Motor Activity: lying in bed Cognition: A/O x3 Insight: variable Judgment: variable Assessment and Plan Impression: MDD Severe Type. Today the patient is calm and cooperative during the assessment. DDx: R/O Bipolar DO Recommendation/Plan: Continue 1013 with placement to [facility] today. Continue Zoloft 50 mg PO daily for depression. Discussed possible suicidality/ medication induced leonardo with patient reference Zoloft. Discussed generalized coping skills with patient.
== END 2017-09-10 16:45 ==
LOC: ED 13:26
DX: F32.9 Major depressive disorder, single episode, unspecified (principal); E11.65 Type 2 diabetes mellitus with hyperglycemia; I10 Essential (primary) hypertension; Z90.49 Acquired absence of other specified parts of digestive tract; Z87.891 Personal history of nicotine dependence; Z79.4 Long term (current) use of insulin
CPT/HCPCS: 36415; 80048; 80307; 81001; 82962; 85025; 96361; 96374; 96376; 99285; G0480; J2765; J7030; 80320; J1815

== ENCOUNTER 2017-09-24 20:48 | Emergency (ER) | payer MEDICAID ==
[2017-09-24] MEDS ORDERED: NACL 0.9% 1000 ML 1,000 ML IV ONE (21:16)
[2017-09-24] MEDS ORDERED: TORADOL IV ONE (21:16)
[2017-09-24] MEDS ORDERED: REGLAN IV ONE (21:16)
[2017-09-24] MEDS ORDERED: BENADRYL IV ONE (21:16)
[2017-09-24] MEDS ORDERED: HumuLIN R IV ONE (21:17)
--- NOTE | 2017-09-24 21:21 | Emergency Department Report ---
ED Headache HPI - General Chief Complaint: Headache Stated Complaint: HEADACHE/NAUSEA Time Seen by Provider: 09/24/17 20:58 Source: patient, old records (patient was recently medically cleared here and transferred to inpatient psych treatment for suicidal ideation on September 10) Exam Limitations: no limitations - History of Present Illness Initial Comments: 62-year-old female with past medical history diabetes, hypertension, depression , and anxiety presents to the hospital from [facility] for headache since last night. Patient complains of a left frontal sharp headache has been constant. Positive pain behind the eye with some mild vision. Positive nausea without vomiting. Patient states several days ago she was placed down and struck her head on concrete and sustained abrasion to her left mandible. No LOC reported. Patient denies neck pain. She has been off of her blood pressure and diabetes medication for the last 2 months. Patient states she typically takes pills for her diabetes with insulin as needed for hyperglycemia. Patient reports a history of headaches and migraines in the past. Allergies/Adverse Reactions: Allergies No Known Allergies Allergy (Unverified 08/25/17 17:15) Home Medications: Ambulatory Orders Acetaminophen [Acetaminophen TAB] 325 mg PO Q4H PRN #5 tablet 08/27/17 Metoclopramide [Reglan ORAL LIQ] 10 mg PO Q8H PRN #5 day 08/27/17 oxyCODONE /ACETAMINOPHEN [Percocet 5/325 mg] 1 tab PO Q4H PRN #12 tablet Ibuprofen [Motrin] 800 mg PO Q8HR PRN #30 tablet 09/25/17 Insulin NPH, Human [NovoLIN N] 7 unit SUB-Q BIDDIAB #30 day 09/25/17 Insulin Regular, Human [HumuLIN R] 1 units SUB-Q ACHS PRN #30 day 09/25/17 Lisinopril [Zestril TAB] 10 mg PO QDAY #30 tablet 09/25/17 ED Review of Systems ROS: Stated complaint: HEADACHE/NAUSEA Other details as noted in HPI Comment: All other systems reviewed and negative ED Past Medical Hx - Past Medical History Previous Medical History?: Yes Hx Hypertension: Yes Hx Congestive Heart Failure: No Hx Diabetes: Yes Hx Asthma: No Hx COPD: No Hx HIV: No Additional medical history: Lupus - Surgical History Past Surgical History?: Yes Hx Cholecystectomy: Yes Hx Appendectomy: Yes - Social History Smoking Status: Former Smoker Substance Use Type: None - Medications Home Medications: Home Medications Medication Instructions Recorded Confirmed Last Taken Type Acetaminophen [Acetaminophen TAB] 325 mg PO Q4H PRN #5 tablet 08/27/17 09/09/17 Unknown Rx Metoclopramide [Reglan ORAL LIQ] 10 mg PO Q8H PRN #5 day 08/27/17 09/09/17 Unknown Rx oxyCODONE /ACETAMINOPHEN [Percocet 1 tab PO Q4H PRN #12 tablet 08/27/17 Unknown Rx 5/325 mg] Ibuprofen [Motrin] 800 mg PO Q8HR PRN #30 tablet 09/25/17 Unknown Rx Insulin NPH, Human [NovoLIN N] 7 unit SUB-Q BIDDIAB #30 day 09/25/17 Unknown Rx Insulin Regular, Human [HumuLIN R] 1 units SUB-Q ACHS PRN #30 day 09/25/17 Unknown Rx Lisinopril [Zestril TAB] 10 mg PO QDAY #30 tablet 09/25/17 Unknown Rx ED Physical Exam - General Limitations: No Limitations - Other Other exam information: General: No limitations, patient is alert in no acute distress Head exam: Atraumatic, abrasion and ecchymosis to the left mandible Eyes exam: Normal appearance, pupils equal reactive to light, extraocular movements intact ENT: Moist mucous membrane, normal oropharynx Neck exam: Normal inspection, full range of motion, no meningismus nontender Respiratory exam: Clear to auscultation bilateral, no wheezes, rales, crackles Cardiovascular: Normal rate and rhythm, normal heart sounds Abdomen: Soft, nondistended, and nontender, with normal bowel sounds, no rebound, or guarding Extremity: Full range of motion normal inspection no deformity Back: Normal Inspection, full range of motion, no tenderness Neurologic: Alert, oriented x3, cranial nerves intact, no motor or sensory deficit, [id number] function intact Psychiatric: normal affect, normal mood Skin: Warm, dry, intact ED Course Vital Signs 09/24/17 09/24/17 09/24/17 20:55 20:56 21:00 Temperature 98.4 F Pulse Rate 100 H 97 H 103 H Respiratory 12 11 L 18 Rate Blood Pressure 168/84 140/71 Blood Pressure [Left] O2 Sat by Pulse 97 94 Oximetry 09/24/17 09/24/17 09/24/17 21:15 21:18 21:30 Temperature 98.4 F Pulse Rate 99 H 100 H 97 H Respiratory 27 H 12 18 Rate Blood Pressure 140/71 127/72 Blood Pressure 168/84 [Left] O2 Sat by Pulse 97 97 96 Oximetry 09/24/17 09/24/17 09/24/17 21:45 21:57 22:00 Temperature Pulse Rate 96 H 97 H Respiratory 27 H 12 17 Rate Blood Pressure 127/72 117/76 Blood Pressure [Left] O2 Sat by Pulse 97 98 Oximetry 09/24/17 09/24/17 09/24/17 22:15 22:30 22:45 Temperature Pulse Rate 89 90 85 Respiratory 19 21 15 Rate Blood Pressure 117/76 132/66 132/66 Blood Pressure [Left] O2 Sat by Pulse 98 97 96 Oximetry 09/24/17 09/24/17 09/24/17 23:00 23:15 23:30 Temperature Pulse Rate 86 83 77 Respiratory 13 6 L 10 L Rate Blood Pressure 125/63 125/63 136/66 Blood Pressure [Left] O2 Sat by Pulse 96 96 Oximetry 09/24/17 09/24/17 09/25/17 23:37 23:45 00:00 Temperature Pulse Rate 81 83 Respiratory 20 16 Rate Blood Pressure 136/66 136/66 136/66 Blood Pressure [Left] O2 Sat by Pulse 93 91 86 Oximetry 09/25/17 09/25/17 09/25/17 00:15 00:30 00:45 Temperature Pulse Rate 78 86 80 Respiratory 17 24 15 Rate Blood Pressure 140/73 133/78 133/78 Blood Pressure [Left] O2 Sat by Pulse 94 84 93 Oximetry 09/25/17 09/25/17 09/25/17 01:00 01:15 01:30 Temperature Pulse Rate 77 80 85 Respiratory 17 14 15 Rate Blood Pressure 119/60 119/60 144/93 Blood Pressure [Left] O2 Sat by Pulse 94 93 99 Oximetry 09/25/17 09/25/17 09/25/17 01:45 02:00 02:15 Temperature Pulse Rate 80 83 74 Respiratory 10 L 18 15 Rate Blood Pressure 144/93 150/71 150/71 Blood Pressure [Left] O2 Sat by Pulse 100 97 99 Oximetry 09/25/17 09/25/17 09/25/17 02:30 02:45 03:01 Temperature Pulse Rate 74 77 83 Respiratory 17 12 16 Rate Blood Pressure 122/64 122/64 187/73 Blood Pressure [Left] O2 Sat by Pulse 97 96 99 Oximetry 09/25/17 09/25/17 09/25/17 03:15 03:31 03:45 Temperature Pulse Rate 75 73 78 Respiratory 14 15 14 Rate Blood Pressure 164/86 164/86 164/86 Blood Pressure [Left] O2 Sat by Pulse Oximetry 09/25/17 04:01 Temperature Pulse Rate 75 Respiratory 14 Rate Blood Pressure 164/86 Blood Pressure [Left] O2 Sat by Pulse Oximetry ED Medical Decision Making - Lab Data Result diagrams: 09/24/17 21:18 09/24/17 21:18 Lab Results 09/24/17 09/24/17 09/24/17 Range/Units 21:18 21:18 21:18 WBC 8.0 (4.5-11.0) K/mm3 RBC 3.79 (3.65-5.03) M/mm3 Hgb 10.7 (10.1-14.3) gm/dl Hct 33.0 (30.3-42.9) % MCV 87 (79-97) fl MCH 28 (28-32) pg MCHC 32 (30-34) % RDW 15.2 (13.2-15.2) % Plt Count 295 (140-440) K/mm3 Lymph % (Auto) 19.3 (13.4-35.0) % [place] % (Auto) 6.8 (0.0-7.3) % Eos % (Auto) 1.5 (0.0-4.3) % Baso % (Auto) 0.8 (0.0-1.8) % Lymph # 1.5 (1.2-5.4) K/mm3 [place] # 0.5 (0.0-0.8) K/mm3 Eos # 0.1 (0.0-0.4) K/mm3 Baso # 0.1 (0.0-0.1) K/mm3 Seg Neutrophils % 71.6 H (40.0-70.0) % Seg Neutrophils # 5.7 (1.8-7.7) K/mm3 VBG pH 7.386 (7.320-7.420) Sodium 134 L (137-145) mmol/L Potassium 4.3 (3.6-5.0) mmol/L Chloride 97.5 L (98-107) mmol/L Carbon Dioxide 21 L (22-30) mmol/L Anion Gap 20 mmol/L BUN 16 (7-17) mg/dL Creatinine 0.5 L (0.7-1.2) mg/dL Estimated GFR > 60 ml/min BUN/Creatinine Ratio 32 % Glucose 378 H (65-100) mg/dL POC Glucose (70-105) Calcium 8.6 (8.4-10.2) mg/dL Urine Color (Yellow) Urine Turbidity (Clear) Urine pH (5.0-7.0) Ur Specific [place] (1.003-1.030) Urine Protein (Negative) mg/dL Urine Glucose (UA) (Negative) mg/dL Urine Ketones (Negative) mg/dL Urine Blood (Negative) Urine Nitrite (Negative) Urine Bilirubin (Negative) Urine Urobilinogen (<2.0) mg/dL Ur Leukocyte Esterase (Negative) Urine WBC (Auto) (0.0-6.0) /HPF Urine RBC (Auto) (0.0-6.0) /HPF U Epithel Cells (Auto) (0-13.0) /HPF Urine Mucus /HPF 09/24/17 09/24/17 09/25/17 Range/Units 21:21 23:33 01:32 WBC (4.5-11.0) K/mm3 RBC (3.65-5.03) M/mm3 Hgb (10.1-14.3) gm/dl Hct (30.3-42.9) % MCV (79-97) fl MCH (28-32) pg MCHC (30-34) % RDW (13.2-15.2) % Plt Count (140-440) K/mm3 Lymph % (Auto) (13.4-35.0) % [place] % (Auto) (0.0-7.3) % Eos % (Auto) (0.0-4.3) % Baso % (Auto) (0.0-1.8) % Lymph # (1.2-5.4) K/mm3 [place] # (0.0-0.8) K/mm3 Eos # (0.0-0.4) K/mm3 Baso # (0.0-0.1) K/mm3 Seg Neutrophils % (40.0-70.0) % Seg Neutrophils # (1.8-7.7) K/mm3 VBG pH (7.320-7.420) Sodium (137-145) mmol/L Potassium (3.6-5.0) mmol/L Chloride (98-107) mmol/L Carbon Dioxide (22-30) mmol/L Anion Gap mmol/L BUN (7-17) mg/dL Creatinine (0.7-1.2) mg/dL Estimated GFR ml/min BUN/Creatinine Ratio % Glucose (65-100) mg/dL POC Glucose 403 H 228 H (70-105) Calcium (8.4-10.2) mg/dL Urine Color Yellow (Yellow) Urine Turbidity Clear (Clear) Urine pH 5.0 (5.0-7.0) Ur Specific [place] 1.029 (1.003-1.030) Urine Protein <15 mg/dl (Negative) mg/dL Urine Glucose (UA) >=500 (Negative) mg/dL Urine Ketones Neg (Negative) mg/dL Urine Blood Neg (Negative) Urine Nitrite Neg (Negative) Urine Bilirubin Neg (Negative) Urine Urobilinogen 2.0 (<2.0) mg/dL Ur Leukocyte Esterase Tr (Negative) Urine WBC (Auto) 4.0 (0.0-6.0) /HPF Urine RBC (Auto) 4.0 (0.0-6.0) /HPF U Epithel Cells (Auto) 2.0 (0-13.0) /HPF Urine Mucus 1+ /HPF - Radiology Data Radiology results: report reviewed read by radiology ct head IMPRESSION: Mild age related volume loss. No acute intracranial process. - Medical Decision Making Left-sided headache Improved with Reglan, Benadryl, and Toradol CT head without acute findings Hyperglycemia Noncompliance with medications for 2 months No signs of DKA Glucose improved with normal saline and insulin Pt states she is not receiving her diabetes or blood pressure medication at [facility]. She cannot recall the names or doses of her medication however patient has medication/instrument listed from recent d/c for DKA in July. These will be continued. Patient also will be started on lisinopril since she has been on lisinopril although she cannot remember the dose. - Differential Diagnosis hyperglycemia, DKA, ICH, migraine, dehydration Critical Care Time: No Critical care attestation.: If time is entered above; I have spent that time in minutes in the direct care of this critically ill patient, excluding procedure time. ED Disposition Clinical Impression: Headache, Diabetes mellitus with hyperglycemia, Noncompliance with medication regimen, HTN (hypertension) Disposition: TO HOME OR SELFCARE Is pt being admited?: No Does the pt Need Aspirin: No Condition: Stable Instructions: Diabetes Mellitus Type 2 in Adults (ED), Hypertension (ED), Acute Headache (ED) Additional Instructions: Take the medication as prescribed. Follow-up with doctor or clinic provided for further treatment. Return if symptoms worsen as indicated by your discharge instructions. Prescriptions: Ibuprofen [Motrin] 800 mg PO Q8HR PRN #30 tablet PRN Reason: Pain Insulin NPH, Human [NovoLIN N] 7 unit SUB-Q BIDDIAB #30 day Insulin Regular, Human [HumuLIN R] 1 units SUB-Q ACHS PRN #30 day PRN Reason: Hyperglycemia Lisinopril [Zestril TAB] 10 mg PO QDAY #30 tablet Referrals: ROSIE CALVILLO MD [Staff Physician] - 3-5 Days [facility] [Provider Group] - 3-5 Days Time of Disposition: 04:35
[2017-09-24 21:37] LABS: Basophils # (Auto) 0.1 K/mm3 (0.0-0.1); Basophils % (Auto) 0.8 % (0.0-1.8); Eosinophils # (Auto) 0.1 K/mm3 (0.0-0.4); Eosinophils % (Auto) 1.5 % (0.0-4.3); Hemoglobin 10.7 gm/dl (10.1-14.3); Lymphocytes # (Auto) 1.5 K/mm3 (1.2-5.4); Lymphocytes % (Auto) 19.3 % (13.4-35.0); Mean Corpuscular HGB Conc 32 % (30-34); Mean Corpuscular Hemoglobin 28 pg (28-32); Mean Corpuscular Volume 87 fl (79-97); Monocytes # (Auto) 0.5 K/mm3 (0.0-0.8); Monocytes % (Auto) 6.8 % (0.0-7.3); Platelet Count 295 K/mm3 (140-440); Red Blood Count 3.79 M/mm3 (3.65-5.03); Red Cell Distribution Width 15.2 % (13.2-15.2)
[2017-09-24 21:47] LABS: BUN/Creatinine Ratio 32; Blood Urea Nitrogen 16 mg/dL (7-17); Calcium 8.6 mg/dL (8.4-10.2); Hemolysis Index 21
--- NOTE | 2017-09-25 01:39 | Cat Scan Report ---
FINAL REPORT EXAM: CT HEAD/BRAIN WO CON HISTORY: headache TECHNIQUE: Routine imaging was obtained of the brain without IV contrast. FINDINGS: There is no evidence of acute stroke or hemorrhage. The ventricular system is appropriate in size and is symmetric. There is mild age related volume loss. The basal cisterns appear normal. The visualized sinuses are clear. The mastoid air cells are well pneumatized. IMPRESSION: Mild age related volume loss. No acute intracranial process.
[2017-09-25 01:45] LABS: Bilirubin,Urine NEG (Negative); Blood,Urine NEG (Negative); Color,Urine Yellow (Yellow); Mucus,Urine 1+ /HPF; Protein,Urine <15 mg/dL mg/dL (Negative)
[2017-09-25 05:15] VITALS: BP 177/83
== END 2017-09-25 06:26 | disposition home or self-care (01) ==
LOC: ED 20:48
DX: E11.65 Type 2 diabetes mellitus with hyperglycemia (principal); I10 Essential (primary) hypertension; F32.9 Major depressive disorder, single episode, unspecified; F41.9 Anxiety disorder, unspecified; M32.9 Systemic lupus erythematosus, unspecified; Z90.49 Acquired absence of other specified parts of digestive tract; Z87.891 Personal history of nicotine dependence
CPT/HCPCS: 36415; 70450; 80048; 81001; 82805; 82962; 85025; 96361; 96374; 96375; 99284; J1200; J1885; J2765; J7030; J1815

== ENCOUNTER 2017-09-25 08:41 | Emergency (ER) | payer MEDICAID ==
[2017-09-25 08:55] VITALS: BP 144/86
== END 2017-09-25 12:45 | disposition left against medical advice (07) ==
LOC: ED 08:41
DX: F99 Mental disorder, not otherwise specified (principal); Z53.21 Procedure and treatment not carried out due to patient leaving prior to being seen by health care provider

== ENCOUNTER 2019-07-02 15:59 | Observation (INO) | payer MEDICAID ==
[2019-07-02] MEDS ORDERED: ASPIRIN 325 MG TAB PO ONE (16:07)
--- NOTE | 2019-07-02 16:12 | Emergency Department Report ---
ED Chest Pain HPI - General Stated Complaint: CHEST PAIN/WEAKNESS Time Seen by Provider: 07/02/19 16:07 Source: patient, EMS Mode of arrival: Stretcher Limitations: No Limitations - History of Present Illness Initial Comments: Patient is a 64-year-old female that just marginal complaints of chest pain. Patient states her chest pain started approximately 4 hours ago. Patient b rought in by EMS. Patient states her chest pain is sent with him. Patient states her pain is better with rest and worse with exertion. Patient denies shortness of breath. Patient states she is also having body aches. Patient states she is also having weakness. Patient denies anxiety. Patient denies nausea vomiting. MD Complaint: chest pain -: Sudden Onset: during rest Pain Location: substernal, left chest Pain Radiation: none Severity: severe Severity scale (0 -10): 10 Quality: sharp Consistency: constant Improves With: rest Worsens With: exertion re: denies: nausea, vomting, diaphoresis, dyspnea, sense of impending doom Other Symptoms: denies: cough, fever, syncope, rash, acid taste in mouth, leg swelling, palpitations, burping Treatments Prior to Arrival: none Aspirin use within the Past 7 Days: (1) Yes - Related Data On Oral Contraceptives: No Previous Rx's Medication Instructions Recorded Last Taken Type Acetaminophen [Acetaminophen TAB] 325 mg PO Q4H PRN #5 tablet 08/27/17 Unknown Rx Metoclopramide [Reglan ORAL LIQ] 10 mg PO Q8H PRN #5 day 08/27/17 Unknown Rx oxyCODONE /ACETAMINOPHEN [Percocet 1 tab PO Q4H PRN #12 tablet 08/27/17 Unknown Rx 5/325 mg] Blood Sugar Diagnostic, Drum 1 each PRN #60 strip 09/25/17 Unknown Rx [Accu-Chek Compact] Blood-Glucose Meter [Accu-Chek 1 each PRN #1 each 09/25/17 Unknown Rx Guide Monitor System] Ibuprofen [Motrin] 800 mg PO Q8HR PRN #30 tablet 09/25/17 Unknown Rx Insulin NPH, Human [NovoLIN N] 7 unit SUB-Q BIDDIAB #30 day 09/25/17 Unknown Rx Insulin Regular, Human [HumuLIN R] 1 units SUB-Q ACHS PRN #30 day 09/25/17 Unknown Rx Syringe and Needle,Insulin,1Ml 1 each PRN #60 disp.syrin 09/25/17 Unknown Rx [Insulin Syringe/Needle 1 ML] lisinopriL [Zestril TAB] 10 mg PO QDAY #30 tablet 09/25/17 Unknown Rx Allergies Allergy/AdvReac Type Severity Reaction Status Date / Time No Known Allergies Allergy Verified 09/25/17 08:53 Heart Score - HEART Score History: Moderately suspicious EKG: Non-specific Age: 45-65 Risk factors: > 3 risk factors or hx of atherosclerotic disease Troponin: < normal limit HEART Score: 5 ED Review of Systems ROS: Stated complaint: CHEST PAIN/WEAKNESS Other details as noted in HPI Constitutional: weakness. denies: chills, fever Eyes: denies: eye pain, eye discharge, vision change ENT: denies: ear pain, throat pain Respiratory: denies: cough, shortness of breath, wheezing Cardiovascular: chest pain. denies: palpitations Endocrine: no symptoms reported Gastrointestinal: denies: abdominal pain, nausea, diarrhea Genitourinary: denies: urgency, dysuria, discharge Musculoskeletal: denies: back pain, joint swelling, arthralgia Skin: denies: rash, lesions Neurological: weakness. denies: headache, paresthesias Psychiatric: denies: anxiety, depression Hematological/Lymphatic: denies: easy bleeding, easy bruising ED Past Medical Hx - Past Medical History Previous Medical History?: Yes Hx Hypertension: Yes Hx Congestive Heart Failure: No Hx Diabetes: Yes Hx Asthma: No Hx COPD: No Hx HIV: No Additional medical history: Lupus - Surgical History Past Surgical History?: Yes Hx Cholecystectomy: Yes Hx Appendectomy: Yes - Family History Family history: no significant - Social History Smoking Status: Never Smoker Substance Use Type: None - Medications Home Medications: Home Medications Medication Instructions Recorded Confirmed Last Taken Type Acetaminophen [Acetaminophen TAB] 325 mg PO Q4H PRN #5 tablet 08/27/17 07/02/19 Unknown Rx Metoclopramide [Reglan ORAL LIQ] 10 mg PO Q8H PRN #5 day 08/27/17 07/02/19 Unknown Rx oxyCODONE /ACETAMINOPHEN [Percocet 1 tab PO Q4H PRN #12 tablet 08/27/17 07/02/19 Unknown Rx 5/325 mg] Blood Sugar Diagnostic, Drum 1 each PRN #60 strip 09/25/17 07/02/19 Unknown Rx [Accu-Chek Compact] Blood-Glucose Meter [Accu-Chek 1 each MC PRN #1 each 09/25/17 07/02/19 Unknown Rx Guide Monitor System] Ibuprofen [Motrin] 800 mg PO Q8HR PRN #30 tablet 09/25/17 07/02/19 Unknown Rx Insulin NPH, Human [NovoLIN N] 7 unit SUB-Q BIDDIAB #30 day 09/25/17 07/02/19 Unknown Rx Insulin Regular, Human [HumuLIN R] 1 units SUB-Q ACHS PRN #30 day 09/25/17 07/02/19 Unknown Rx Syringe and Needle,Insulin,1Ml 1 each MC PRN #60 disp.syrin 09/25/17 07/02/19 Unknown Rx [Insulin Syringe/Needle 1 ML] lisinopriL [Zestril TAB] 10 mg PO QDAY #30 tablet 09/25/17 07/02/19 Unknown Rx ED Physical Exam - General Limitations: No Limitations General appearance: alert, in no apparent distress - Head Head exam: Present: atraumatic, normocephalic - Eye Eye exam: Present: normal appearance - ENT ENT exam: Present: mucous membranes moist - Neck Neck exam: Present: normal inspection - Respiratory Respiratory exam: Present: normal lung sounds bilaterally. Absent: respiratory distress, chest wall tenderness - Cardiovascular Cardiovascular Exam: Present: regular rate, normal rhythm. Absent: systolic murmur, diastolic murmur, rubs, gallop - GI/Abdominal GI/Abdominal exam: Present: soft, normal bowel sounds - Extremities Exam Extremities exam: Present: normal inspection - Back Exam Back exam: Present: normal inspection - Neurological Exam Neurological exam: Present: alert, oriented X3 - Psychiatric Psychiatric exam: Present: normal affect, normal mood - Skin Skin exam: Present: warm, dry, intact, normal color. Absent: rash ED Course Vital Signs 07/02/19 07/02/19 07/02/19 16:24 16:31 17:00 Temperature 98.5 F Pulse Rate 97 H 97 H 98 H Respiratory 14 30 H 14 Rate Blood Pressure 192/102 196/93 Blood Pressure [Right] O2 Sat by Pulse 100 100 99 Oximetry 07/02/19 07/02/19 07/02/19 17:50 19:00 19:13 Temperature 98.5 F Pulse Rate 101 H 101 H Respiratory 22 14 Rate Blood Pressure 196/93 Blood Pressure 190/98 [Right] O2 Sat by Pulse 100 Oximetry 07/02/19 20:20 Temperature Pulse Rate 90 Respiratory Rate Blood Pressure Blood Pressure 175/76 [Right] O2 Sat by Pulse Oximetry - Reevaluation(s) Reevaluation #1: Patient's labs have returned. The patient has a metabolic acidosis. Patient bicarbonate low and anion gap open. Patient was placed on a DKA protocol for hhs without the insulin drip and frequent Accu-Cheks. 07/02/19 17:25 \ Reevaluation #2: I discussed all results and plan of care with patient. Patient agrees to plan of care and admission. Patient will be admitted to the hospitalist service. 07/02/19 17:42 - Consultations Consultation #1: Hospitalist consultation for admission. Hospitalist admit patient. 07/02/19 17:42 JESSENIA score - Jessenia Score Age > 65: (0) No Aspirin use within the Past 7 Days: (1) Yes 3 or more CAD Risk Factors: (1) Yes 2 or more Angina events in past 24 hrs: (0) No Known CAD with more than 50% Stenosis: (0) No Elevated Cardiac Markers: (0) No ST Deviation Greater than 0.5mm: (0) No JESSENIA Score: 2 ED Medical Decision Making - Lab Data Result diagrams: 07/02/19 16:40 07/02/19 Unknown - EKG Data -: EKG Interpreted by [facility] EKG shows normal: sinus rhythm, axis, intervals, QRS complexes, ST-T waves Rate: normal - Radiology Data Radiology results: report reviewed, image reviewed Chest single view INDICATION: Chest pain IMPRESSION: Ill-defined linear densities present within the left lower lung may be chronic. The remainder of the lungs appear clear. - Medical Decision Making Patient is a 64-year-old female that has virtual complaints of chest pain and weakness. Patient has a long history of diabetes but is noncompliant with her medications. Patient's bicarbonate is low and anion gap is open. Patient placed on a hyperglycemic hyperosmolar protocol but we held the insulin as per the hospitalist recommendation due to the blood sugar. Patient admitted to Dr. Lara, hospitalist. Patient's chest x-ray is unremarkable. Rest of the patient's labs unremarkable. - Differential Diagnosis DKA, chest pain, ACS, Critical Care Time: Yes Critical care time in (mins) excluding proc time.: 35 Critical care attestation.: If time is entered above; I have spent that time in minutes in the direct care of this critically ill patient, excluding procedure time. Critical Care Time: 35 MINUTES ED Disposition Clinical Impression: Hyperosmolar hyperglycemic coma due to diabetes mellitus without ketoacidosis, Dehydration, Acidosis, Hypertensive urgency Chest pain Qualifiers: Chest pain type: unspecified Qualified Code(s): R07.9 - Chest pain, unspecified Disposition: DC-09 OP ADMIT IP TO THIS HOSP Is pt being admited?: Yes Does the pt Need Aspirin: No Condition: Critical Time of Disposition: 17:31
--- NOTE | 2019-07-02 16:38 | XRay Report ---
Chest single view INDICATION: Chest pain IMPRESSION: Ill-defined linear densities present within the left lower lung may be chronic. The remai nder of the lungs appear clear. Signer Name: Eladio Acevedo MD Signed: 07/02/2019 4:34 PM Workstation Name: [id number]
[2019-07-02 16:56] LABS: Basophils % (Auto) 0.3 % (0.0-1.8); Eosinophils % (Auto) 0.7 % (0.0-4.3); Hemoglobin 10.4 gm/dl (10.1-14.3); Lymphocytes # (Auto) 1.5 K/mm3 (1.2-5.4); Lymphocytes % (Auto) 24.8 % (13.4-35.0); Monocytes # (Auto) 0.4 K/mm3 (0.0-0.8); Monocytes % (Auto) 5.7 % (0.0-7.3)
[2019-07-02 17:01] LABS: Hematocrit 29.6 % (30.3-42.9); Red Blood Count 3.22 M/mm3 (3.65-5.03)
[2019-07-02 17:02] LABS: Mean Corpuscular HGB Conc 35 % (30-34); Mean Corpuscular Volume 92 fl (79-97); Platelet Count 528 K/mm3 (140-440); Red Cell Distribution Width 13.9 % (13.2-15.2)
[2019-07-02 17:12] LABS: Alanine Aminotransferase 17 units/L (7-56); Albumin 2.5 g/dL (3.9-5); BUN/Creatinine Ratio 27; Blood Urea Nitrogen 8 mg/dL (7-17); Calcium 7.6 mg/dL (8.4-10.2); Hemolysis Index 54
[2019-07-02] MEDS ORDERED: SODIUM CHLORIDE 0.9% 1000 ML 1,000 ML IV ONE (17:23)
[2019-07-02] MEDS ORDERED: DEXTROSE 50% IN WATER (25GM) 50 ML SYRINGE IV PRN (17:23)
[2019-07-02] MEDS ORDERED: MORPHINE 2 MG/1 ML INJ IV ONE (17:41)
[2019-07-02] MEDS ORDERED: MORPHINE 2 MG/1 ML INJ ONE (17:43)
[2019-07-02] MEDS ORDERED: INSULIN REGULAR, HUMAN 100 UNITS in SODIUM CHLORIDE 0.9% 99 ML IV SCH (18:00)
[2019-07-02 18:05] LABS: Bilirubin,Urine NEG (Negative); Blood,Urine NEG (Negative); Color,Urine Straw (Yellow); Protein,Urine <15 mg/dL mg/dL (Negative); Urobilinogen,Urine < 2.0 mg/dL (<2.0)
[2019-07-02 18:13] LABS: Amphetamine Screen,Urine PRESUMPTIVE NEGATIVE; Benzodiazepines Screen,Urine PRESUMPTIVE NEGATIVE; Cannabinoid Screen,Urine PRESUMPTIVE NEGATIVE; Cocaine Screen,Urine PRESUMPTIVE NEGATIVE; Methadone Screen,Urine PRESUMPTIVE NEGATIVE; Opiate Screen,Urine PRESUMPTIVE NEGATIVE
[2019-07-02 18:46] LABS: BUN/Creatinine Ratio 27; Blood Urea Nitrogen 8 mg/dL (7-17); Hemolysis Index 8
[2019-07-02] MEDS ORDERED: METOPROLOL TARTRATE 5 MG/5 ML INJ IV ONE ×2 (18:59→19:07)
[2019-07-02] MEDS ORDERED: ACETAMINOPHEN 325 MG TAB PO PRN ×2 (20:50→20:51)
[2019-07-02] MEDS ORDERED: ONDANSETRON 4 MG/2 ML INJ IV PRN (20:51)
[2019-07-02] MEDS ORDERED: LISINOPRIL 10 MG TAB PO SCH (21:00)
[2019-07-02] MEDS ORDERED: SODIUM CHLORIDE 0.9% 1000 ML 1,000 ML IV SCH (21:00)
[2019-07-02] MEDS ORDERED: TEMAZEPAM 15 MG CAP PO ONE (23:00)
[2019-07-02] MEDS: INSULIN LISPRO 100 UNIT/ML SUB-Q SCH (23:41)
[2019-07-02] MEDS: oxyCODONE /ACETAMINOPHEN 5-325MG TAB PO PRN (23:47)
[2019-07-03] MEDS: INSULIN LISPRO 100 UNIT/ML SUB-Q SCH ×6 (02:56→22:26)
--- NOTE | 2019-07-03 06:54 | History and Physical Report ---
History of Present Illness Date of examination: 07/02/19 Date of admission: 07/02/19 17:43 Chief complaint: Chest pain for 4 hrs History of present illness: 64-year-old female comes in for chest pain. Patient states her chest pain started approximately 4 hours ago. Patient brought in by EMS. Patient states her chest pain is better with rest and worse with exertion. Patient denies shortness of breath. Patient states she is also having body aches. Patient s tates she is also having weakness. Patient denies anxiety. Patient denies nausea vomiting.NCo exacerbating or relieving factors.Pain is about 5/10.Dull in character.No radiation.No diaphoresis No SOB No palpitations Past Medical History Previous Medical History?: Yes Hypertension: Yes Diabetes: Yes Additional medical history: Lupus Surgical History Past Surgical History?: Yes Hx Cholecystectomy: Yes Hx Appendectomy: Yes Family History Family history: no significant Social History Smoking Status: Never Smoker Substance Use Type: None - Medications Home Medications: Home Medications Medication Instructions Recorded Confirmed Last Taken Type Acetaminophen [Acetaminophen TAB] 325 mg PO Q4H PRN #5 tablet 08/27/17 07/02/19 Unknown Rx Metoclopramide [Reglan ORAL LIQ] 10 mg PO Q8H PRN #5 day 08/27/17 07/02/19 Unknown Rx oxyCODONE /ACETAMINOPHEN [Percocet 1 tab PO Q4H PRN #12 tablet 08/27/17 07/02/19 Unknown Rx 5/325 mg] Blood Sugar Diagnostic, Drum 1 each PRN #60 strip 09/25/17 07/02/19 Unknown Rx [Accu-Chek Compact] Blood-Glucose Meter [Accu-Chek 1 each PRN #1 each 09/25/17 07/02/19 Unknown Rx Guide Monitor System] Ibuprofen [Motrin] 800 mg PO Q8HR PRN #30 tablet 09/25/17 07/02/19 Unknown Rx Insulin NPH, Human [NovoLIN N] 7 unit SUB-Q BIDDIAB #30 day 09/25/17 07/02/19 Unknown Rx Insulin Regular, Human [HumuLIN R] 1 units SUB-Q ACHS PRN #30 day 09/25/17 07/02/19 Unknown Rx Syringe and Needle,Insulin,1Ml 1 each PRN #60 disp.syrin 09/25/17 07/02/19 Unknown Rx [Insulin Syringe/Needle 1 ML] lisinopriL [Zestril TAB] 10 mg PO QDAY #30 tablet 09/25/17 07/02/19 Unknown Rx Review of Systems ROS: Stated complaint: CHEST PAIN/WEAKNESS Other details as noted in HPI Constitutional: weakness. denies: chills, fever Eyes: denies: eye pain, eye discharge, vision change ENT: denies: ear pain, throat pain Respiratory: denies: cough, shortness of breath, wheezing Cardiovascular: chest pain. denies: palpitations Endocrine: no symptoms reported Gastrointestinal: denies: abdominal pain, nausea, diarrhea Genitourinary: denies: urgency, dysuria, discharge Musculoskeletal: denies: back pain, joint swelling, arthralgia Skin: denies: rash, lesions Neurological: weakness. denies: headache, paresthesias Psychiatric: denies: anxiety, depression Hematological/Lymphatic: denies: easy bleeding, easy bruising Medications and Allergies Allergies Allergy/AdvReac Type Severity Reaction Status Date / Time No Known Allergies Allergy Verified 09/25/17 08:53 Home Medications Medication Instructions Recorded Confirmed Last Taken Type Acetaminophen [Acetaminophen TAB] 325 mg PO Q4H PRN #5 tablet 08/27/17 07/02/19 Unknown Rx Metoclopramide [Reglan ORAL LIQ] 10 mg PO Q8H PRN #5 day 08/27/17 07/02/19 Unknown Rx oxyCODONE /ACETAMINOPHEN [Percocet 1 tab PO Q4H PRN #12 tablet 08/27/17 07/02/19 Unknown Rx 5/325 mg] Blood Sugar Diagnostic, Drum 1 each PRN #60 strip 09/25/17 07/02/19 Unknown Rx [Accu-Chek Compact] Blood-Glucose Meter [Accu-Chek 1 each PRN #1 each 09/25/17 07/02/19 Unknown Rx Guide Monitor System] Ibuprofen [Motrin] 800 mg PO Q8HR PRN #30 tablet 09/25/17 07/02/19 Unknown Rx Insulin NPH, Human [NovoLIN N] 7 unit SUB-Q BIDDIAB #30 day 09/25/17 07/02/19 Unknown Rx Insulin Regular, Human [HumuLIN R] 1 units SUB-Q ACHS PRN #30 day 09/25/17 07/02/19 Unknown Rx Syringe and Needle,Insulin,1Ml 1 each MC PRN #60 disp.syrin 09/25/17 07/02/19 Unknown Rx [Insulin Syringe/Needle 1 ML] lisinopriL [Zestril TAB] 10 mg PO QDAY #30 tablet 09/25/17 07/02/19 Unknown Rx Active Meds: Active Medications Acetaminophen (Tylenol) 650 mg PO Q4H PRN PRN Reason: Pain MILD(1-3)/Fever >100.5/DAVID Last Admin: 07/03/19 02:56 Dose: 650 mg Documented by: Dextrose (D50w (25gm) Syringe) 50 ml IV Q30MIN PRN; Protocol PRN Reason: Hypoglycemia Sodium Chloride (Nacl 0.9% 1000 Ml) 1,000 mls @ 75 mls/hr IV DIRECT ELROY Last Admin: 07/02/19 21:44 Dose: 75 mls/hr Documented by: Insulin Human Lispro (Humalog) 0 unit SUB-Q Q4HR [facility]; Protocol Last Admin: 07/03/19 06:18 Dose: Not Given Documented by: Insulin Human NPH (Humulin N) 7 unit SUB-Q BIDDIAB [facility] Lisinopril (Zestril) 10 mg PO QDAY [facility] Last Admin: 07/02/19 21:43 Dose: 10 mg Documented by: Ondansetron HCl (Zofran) 4 mg IV Q8H PRN PRN Reason: Nausea And Vomiting Oxycodone/Acetaminophen (Percocet 5/325) 1 tab PO Q4H PRN PRN Reason: Pain , Severe (7-10) Last Admin: 07/02/19 23:47 Dose: 1 tab Documented by: Sodium Chloride (Sodium Chloride Flush Syringe 10 Ml) 10 ml IV BID [facility] Last Admin: 07/02/19 21:53 Dose: 10 ml Documented by: Sodium Chloride (Sodium Chloride Flush Syringe 10 Ml) 10 ml IV PRN PRN PRN Reason: LINE FLUSH Exam - Constitutional Vitals: Temp Pulse Resp BP Pulse Ox 98.2 F 95 H 18 157/79 98 07/02/19 21:03 07/02/19 21:03 07/02/19 21:03 07/02/19 21:03 07/02/19 21:03 General appearance: Present: no acute distress, well-nourished - EENT Eyes: Present: PERRL ENT: hearing intact, clear oral mucosa - Neck Neck: Present: supple, normal ROM - Respiratory Respiratory effort: normal Respiratory: bilateral: CTA - Cardiovascular Heart rate: 78 Rhythm: regular Heart Sounds: Present: S1 & S2. Absent: rub, click - Extremities Extremities: pulses symmetrical, No edema Peripheral Pulses: within normal limits - Abdominal General gastrointestinal: Present: soft, non-tender, non-distended, normal bowel sounds Female genitourinary: Present: normal - Integumentary Integumentary: Present: clear, warm, dry - Musculoskeletal Musculoskeletal: gait normal, strength equal bilaterally - Psychiatric Psychiatric: appropriate mood/affect, intact judgment & insight - Neurologic Neurologic: CNII-XII intact, moves all extremities JESSENIA score - Jessenia Score Age > 65: (0) No Aspirin use within the Past 7 Days: (1) Yes 3 or more CAD Risk Factors: (1) Yes 2 or more Angina events in past 24 hrs: (0) No Known CAD with more than 50% Stenosis: (0) No Elevated Cardiac Markers: (0) No ST Deviation Greater than 0.5mm: (0) No JESSENIA Score: 2 Results - Labs CBC & Chem 7: 07/02/19 16:40 07/02/19 Unknown Labs: Laboratory Last Values WBC 6.1 K/mm3 (4.5-11.0) 07/02/19 16:40 RBC 3.22 M/mm3 (3.65-5.03) L 07/02/19 16:40 Hgb 10.4 gm/dl (10.1-14.3) 07/02/19 16:40 Hct 29.6 % (30.3-42.9) L 07/02/19 16:40 MCV 92 fl (79-97) 07/02/19 16:40 MCH 32 pg (28-32) 07/02/19 16:40 MCHC 35 % (30-34) H 07/02/19 16:40 RDW 13.9 % (13.2-15.2) 07/02/19 16:40 Plt Count 528 K/mm3 (140-440) H 07/02/19 16:40 Lymph % (Auto) 24.8 % (13.4-35.0) 07/02/19 16:40 [place] % (Auto) 5.7 % (0.0-7.3) 07/02/19 16:40 Eos % (Auto) 0.7 % (0.0-4.3) 07/02/19 16:40 Baso % (Auto) 0.3 % (0.0-1.8) 07/02/19 16:40 Lymph # 1.5 K/mm3 (1.2-5.4) 07/02/19 16:40 [place] # 0.4 K/mm3 (0.0-0.8) 07/02/19 16:40 Eos # 0.0 K/mm3 (0.0-0.4) 07/02/19 16:40 Baso # 0.0 K/mm3 (0.0-0.1) 07/02/19 16:40 Seg Neutrophils % 68.5 % (40.0-70.0) 07/02/19 16:40 Seg Neutrophils # 4.2 K/mm3 (1.8-7.7) 07/02/19 16:40 VBG pH 7.451 (7.320-7.420) H 07/02/19 16:40 Sodium 137 mmol/L (137-145) 07/02/19 Unknown Potassium 3.7 mmol/L (3.6-5.0) 07/02/19 Unknown Chloride 102.7 mmol/L (98-107) 07/02/19 Unknown Carbon Dioxide 20 mmol/L (22-30) L 07/02/19 Unknown Anion Gap 18 mmol/L 07/02/19 Unknown BUN 8 mg/dL (7-17) 07/02/19 Unknown Creatinine 0.3 mg/dL (0.7-1.2) L 07/02/19 Unknown Estimated GFR > 60 ml/min 07/02/19 Unknown BUN/Creatinine Ratio 27 % 07/02/19 Unknown Glucose 217 mg/dL (65-100) H 07/02/19 Unknown POC Glucose 149 (70-105) H 07/03/19 05:49 Calcium 8.0 mg/dL (8.4-10.2) L 07/02/19 Unknown Phosphorus 2.20 mg/dL (2.5-4.5) L 07/02/19 18:07 Magnesium 1.60 mg/dL (1.7-2.3) L 07/02/19 18:07 Total Bilirubin < 0.20 mg/dL (0.1-1.2) 07/02/19 16:40 AST > 17 units/L (5-40) 07/02/19 16:40 ALT 17 units/L (7-56) 07/02/19 16:40 Alkaline Phosphatase 91 units/L (35-129) 07/02/19 16:40 Troponin T < 0.010 ng/mL (0.00-0.029) 07/02/19 21:01 Total Protein 5.7 g/dL (6.3-8.2) L 07/02/19 16:40 Albumin 2.5 g/dL (3.9-5) L 07/02/19 16:40 Albumin/Globulin Ratio 0.8 % 07/02/19 16:40 Urine Color Straw (Yellow) 07/02/19 17:58 Urine Turbidity Clear (Clear) 07/02/19 17:58 Urine pH 8.0 (5.0-7.0) H 07/02/19 17:58 Ur Specific [place] 1.012 (1.003-1.030) 07/02/19 17:58 Urine Protein <15 mg/dl mg/dL (Negative) 07/02/19 17:58 Urine Glucose (UA) >=500 mg/dL (Negative) 07/02/19 17:58 Urine Ketones Neg mg/dL (Negative) 07/02/19 17:58 Urine Blood Neg (Negative) 07/02/19 17:58 Urine Nitrite Neg (Negative) 07/02/19 17:58 Urine Bilirubin Neg (Negative) 07/02/19 17:58 Urine Urobilinogen < 2.0 mg/dL (<2.0) 07/02/19 17:58 Ur Leukocyte Esterase Neg (Negative) 07/02/19 17:58 Urine WBC (Auto) 1.0 /HPF (0.0-6.0) 07/02/19 17:58 Urine RBC (Auto) 3.0 /HPF (0.0-6.0) 07/02/19 17:58 U Epithel Cells (Auto) 1.0 /HPF (0-13.0) 07/02/19 17:58 Urine Opiates Screen Presumptive negative 07/02/19 17:58 Urine Methadone Screen Presumptive negative 07/02/19 17:58 Ur Barbiturates Screen Presumptive negative 07/02/19 17:58 Ur Phencyclidine Scrn Presumptive negative 07/02/19 17:58 Ur Amphetamines Screen Presumptive negative 07/02/19 17:58 U Benzodiazepines Scrn Presumptive negative 07/02/19 17:58 Urine Cocaine Screen Presumptive negative 07/02/19 17:58 U Marijuana (THC) Screen Presumptive negative 07/02/19 17:58 Drugs of Abuse Note Disclamer 07/02/19 17:58 Short CBC 07/02/19 Range/Units 16:40 WBC 6.1 (4.5-11.0) K/mm3 Hgb 10.4 (10.1-14.3) gm/dl Hct 29.6 L (30.3-42.9) % Plt Count 528 H (140-440) K/mm3 BMP 07/02/19 07/02/19 16:40 Unknown Sodium 136 L 137 Potassium 3.8 3.7 Chloride 102.8 102.7 Carbon Dioxide 19 L 20 L BUN 8 8 Creatinine 0.3 L 0.3 L Glucose 286 H 217 H Calcium 7.6 L 8.0 L Cardiac Enzymes 07/02/19 07/02/19 07/02/19 Range/Units 16:40 20:47 21:01 Troponin T < 0.010 < 0.010 < 0.010 (0.00-0.029) ng/mL Liver Function 07/02/19 Range/Units 16:40 Total Bilirubin < 0.20 (0.1-1.2) mg/dL AST > 17 (5-40) units/L ALT 17 (7-56) units/L Alkaline Phosphatase 91 (35-129) units/L Albumin 2.5 L (3.9-5) g/dL Urine 07/02/19 Range/Units 17:58 Urine Color Straw (Yellow) Urine pH 8.0 H (5.0-7.0) Ur Specific [place] 1.012 (1.003-1.030) Urine Protein <15 mg/dl (Negative) mg/dL Urine Glucose (UA) >=500 (Negative) mg/dL - Imaging and Cardiology EKG: report reviewed Chest x-ray: report reviewed Assessment and Plan Advance Directives: Yes (Full code) VTE prophylaxis?: Chemical Plan of care discussed with patient/family: Yes - Patient Problems (1) Chest pain Current Visit: Yes Status: Acute Qualifiers: Chest pain type: unspecified Qualified Code(s): R07.9 - Chest pain, u nspecified Plan to address problem: Chest pain w/u Srial troponins Lexiscan in AM Obs status (2) IDDM (insulin dependent diabetes mellitus) Current Visit: Yes Status: Chronic Plan to address problem: Cont home Insulin and coverge Check A1c (3) HTN (hypertension) Current Visit: Yes Status: Chronic Qualifiers: Hypertension type: essential hypertension Qualified Code(s): I10 - Essential (primary) hypertension Plan to address problem: Cont antihypertensives (4) DVT prophylaxis Current Visit: Yes Status: Acute Plan to address problem: On Heparin and GI prophylaxis
[2019-07-03] MEDS: oxyCODONE /ACETAMINOPHEN 5-325MG TAB PO PRN ×2 (06:59→10:57)
[2019-07-03 07:50] LABS: Basophils # (Auto) 0.1 K/mm3 (0.0-0.1); Basophils % (Auto) 1.3 % (0.0-1.8); Eosinophils # (Auto) 0.1 K/mm3 (0.0-0.4); Eosinophils % (Auto) 1.2 % (0.0-4.3); Hematocrit 28.4 % (30.3-42.9); Hemoglobin 9.9 gm/dl (10.1-14.3); Lymphocytes # (Auto) 1.8 K/mm3 (1.2-5.4); Lymphocytes % (Auto) 24.2 % (13.4-35.0); Mean Corpuscular HGB Conc 35 % (30-34); Mean Corpuscular Volume 93 fl (79-97); Monocytes # (Auto) 0.5 K/mm3 (0.0-0.8); Monocytes % (Auto) 7.2 % (0.0-7.3); Platelet Count 477 K/mm3 (140-440); Red Blood Count 3.05 M/mm3 (3.65-5.03)
[2019-07-03 08:11] LABS: Alanine Aminotransferase 16 units/L (7-56); Albumin 2.4 g/dL (3.9-5); BUN/Creatinine Ratio 23; Blood Urea Nitrogen 9 mg/dL (7-17); Calcium 7.9 mg/dL (8.4-10.2); Hemolysis Index 26
[2019-07-03] MEDS ORDERED: REGADENOSON 0.4 MG/5 ML INJ IV ONE ×2 (08:43)
--- NOTE | 2019-07-03 09:51 | Treadmill Report ---
LEXISCAN STRESS TEST REPORT REASON FOR STUDY: Chest pain. STRESS TEST PROTOCOL: The patient received 0.4 mg of Lexiscan intravenously over 10 seconds. Tc-99m Tetrofosmin was subsequently injected. Baseline ECG: normal sinus rhythm. Lexiscan ECG: no ischemic changes. No chest pain. No arrhythmias. IMPRESSION: Electrocardiographically negative stress test. Nuclear imaging report to follow. JOB# [id number] JUAN MANUEL/DANISH HERRERAD
[2019-07-03] MEDS: INSULIN NPH, HUMAN 100 UNIT/1 ML SUB-Q SCH ×2 (10:10→19:11)
[2019-07-03] MEDS ORDERED: LISINOPRIL 10 MG TAB PO SCH (10:38)
[2019-07-03] MEDS: HEPARIN 5,000 UNIT/1 ML VIAL SUB-Q SCH ×2 (10:49→22:27)
[2019-07-03] MEDS: amLODIPine 10 MG TAB PO SCH (10:56)
[2019-07-03] MEDS ORDERED: LISINOPRIL 20 MG TAB PO SCH (11:00)
[2019-07-03] MEDS ORDERED: hydrALAZINE 20 MG/1 ML INJ IV PRN (11:21)
[2019-07-03] MEDS ORDERED: ONDANSETRON 4 MG/2 ML INJ IV PRN (11:21)
--- NOTE | 2019-07-03 12:02 | XRay Report ---
ABDOMEN 1 VIEW(S) INDICATION / CLINICAL INFORMATION: persistent nausea and vomiting. COMPARISON: None available. FINDINGS: TUBES / LINES: None. BOWEL GAS PATTERN: No significant abnormality. ADDITIONAL FINDINGS: Previous cholecystectomy and bowel surgery. Signer Name: Oswaldo Ochoa MD Signed: 07/03/2019 11:58 AM Workstation Name: [id number]
[2019-07-03] MEDS ORDERED: HALOPERIDOL LACTATE 5 MG/1 ML INJ IM ONE (16:35)
--- NOTE | 2019-07-03 21:27 | Progress Note ---
Assessment and Plan Assessment and plan: 64-year-old female comes in for chest pain. Patient states her chest pain started approximately 4 hours ago. Patient brought in by EMS. Patient states her chest pain is better with rest and worse with exertion. Patient denies shortness of breath. Patient states she is also having body aches. Patient states she is also having weakness. Patient appears to be uncomfortable and in acute distress during my exam Reports severe abdominal pain 10/10 with persistent nausea and vomiting, no vomiting yet seen. Persistent Nausea and vomiting -Start on zofran -Obtain further records, patient appears to have underlying psych issues per last admission -psych consultation -trial of Haldol Atypical Chest pain Current Visit: Yes Status: Acute Qualifiers: Chest pain type: unspecified Qualified Code(s): R07.9 - Chest pain, unspecified Plan to address problem: Chest pain w/u Srial troponins Lexiscan in AM Obs status IDDM (insulin dependent diabetes mellitus) Current Visit: Yes Status: Chronic Plan to address problem: Cont home Insulin and coverge Check A1c HTN (hypertension) Current Visit: Yes Status: Chronic Qualifiers: Hypertension type: essential hypertension Qualified Code(s): I10 - Es sential (primary) hypertension Plan to address problem: Cont antihypertensives DVT prophylaxis Current Visit: Yes Status: Acute Plan to address problem: On Heparin and GI prophylaxis History Interval history: Confuse, in moderate distress Hospitalist Physical - Physical exam Narrative exam: General appearance: Present: IN Moderate distress, in position - EENT Eyes: Present: PERRL ENT: hearing intact, clear oral mucosa - Neck Neck: Present: supple, normal ROM - Respiratory Respiratory effort: normal Respiratory: bilateral: CTA - Cardiovascular Heart rate: 78 Rhythm: regular Heart Sounds: Present: S1 & S2. Absent: rub, click - Extremities Extremities: pulses symmetrical, No edema Peripheral Pulses: within normal limits - Abdominal General gastrointestinal: Present: soft, non-tender, non-distended, normal bowel sounds Female genitourinary: Present: normal - Integumentary Integumentary: Present: clear, warm, dry - Musculoskeletal Musculoskeletal: gait normal, strength equal bilaterally - Psychiatric Psychiatric: appropriate mood/affect, intact judgment & insight - Neurologic Neurologic: CNII-XII intact, moves all extremities - Constitutional Vitals: Temp Pulse Resp BP Pulse Ox 97.9 F 104 H 18 148/66 99 07/03/19 13:57 07/03/19 13:57 07/03/19 13:57 07/03/19 13:57 07/03/19 13:57 General appearance: Present: no acute distress, well-nourished JESSENIA score - Jessenia Score Age > 65: (0) No Aspirin use within the Past 7 Days: (1) Yes 3 or more CAD Risk Factors: (1) Yes 2 or more Angina events in past 24 hrs: (0) No Known CAD with more than 50% Stenosis: (0) No Elevated Cardiac Markers: (0) No ST Deviation Greater than 0.5mm: (0) No JESSENIA Score: 2 Results - Labs CBC & Chem 7: 07/03/19 06:46 07/03/19 06:46 Labs: Laboratory Last Values WBC 7.4 K/mm3 (4.5-11.0) 07/03/19 06:46 RBC 3.05 M/mm3 (3.65-5.03) L 07/03/19 06:46 Hgb 9.9 gm/dl (10.1-14.3) L 07/03/19 06:46 Hct 28.4 % (30.3-42.9) L 07/03/19 06:46 MCV 93 fl (79-97) 07/03/19 06:46 MCH 32 pg (28-32) 07/03/19 06:46 MCHC 35 % (30-34) H 07/03/19 06:46 RDW 14.0 % (13.2-15.2) 07/03/19 06:46 Plt Count 477 K/mm3 (140-440) H 07/03/19 06:46 Lymph % (Auto) 24.2 % (13.4-35.0) 07/03/19 06:46 Douglas % (Auto) 7.2 % (0.0-7.3) 07/03/19 06:46 Eos % (Auto) 1.2 % (0.0-4.3) 07/03/19 06:46 Baso % (Auto) 1.3 % (0.0-1.8) 07/03/19 06:46 Lymph # 1.8 K/mm3 (1.2-5.4) 07/03/19 06:46 Douglas # 0.5 K/mm3 (0.0-0.8) 07/03/19 06:46 Eos # 0.1 K/mm3 (0.0-0.4) 07/03/19 06:46 Baso # 0.1 K/mm3 (0.0-0.1) 07/03/19 06:46 Seg Neutrophils % 66.1 % (40.0-70.0) 07/03/19 06:46 Seg Neutrophils # 4.9 K/mm3 (1.8-7.7) 07/03/19 06:46 VBG pH 7.451 (7.320-7.420) H 07/02/19 16:40 Sodium 140 mmol/L (137-145) 07/03/19 06:46 Potassium 4.1 mmol/L (3.6-5.0) 07/03/19 06:46 Chloride 105.3 mmol/L (98-107) 07/03/19 06:46 Carbon Dioxide 20 mmol/L (22-30) L 07/03/19 06:46 Anion Gap 19 mmol/L 07/03/19 06:46 BUN 9 mg/dL (7-17) 07/03/19 06:46 Creatinine 0.4 mg/dL (0.7-1.2) L 07/03/19 06:46 Estimated GFR > 60 ml/min 07/03/19 06:46 BUN/Creatinine Ratio 23 % 07/03/19 06:46 Glucose 138 mg/dL (65-100) H 07/03/19 06:46 POC Glucose 301 (70-105) H 07/03/19 18:01 Hemoglobin A1c 10.5 % (4-6) H 07/03/19 06:46 Calcium 7.9 mg/dL (8.4-10.2) L 07/03/19 06:46 Phosphorus 2.20 mg/dL (2.5-4.5) L 07/02/19 18:07 Magnesium 1.60 mg/dL (1.7-2.3) L 07/02/19 18:07 Total Bilirubin 0.20 mg/dL (0.1-1.2) 07/03/19 06:46 AST 16 units/L (5-40) 07/03/19 06:46 ALT 16 units/L (7-56) 07/03/19 06:46 Alkaline Phosphatase 85 units/L (35-129) 07/03/19 06:46 Troponin T < 0.010 ng/mL (0.00-0.029) 07/03/19 06:46 Total Protein 5.8 g/dL (6.3-8.2) L 07/03/19 06:46 Albumin 2.4 g/dL (3.9-5) L 07/03/19 06:46 Albumin/Globulin Ratio 0.7 % 07/03/19 06:46 Urine Color Straw (Yellow) 07/02/19 17:58 Urine Turbidity Clear (Clear) 07/02/19 17:58 Urine pH 8.0 (5.0-7.0) H 07/02/19 17:58 Ur Specific [place] 1.012 (1.003-1.030) 07/02/19 17:58 Urine Protein <15 mg/dl mg/dL (Negative) 07/02/19 17:58 Urine Glucose (UA) >=500 mg/dL (Negative) 07/02/19 17:58 Urine Ketones Neg mg/dL (Negative) 07/02/19 17:58 Urine Blood Neg (Negative) 07/02/19 17:58 Urine Nitrite Neg (Negative) 07/02/19 17:58 Urine Bilirubin Neg (Negative) 07/02/19 17:58 Urine Urobilinogen < 2.0 mg/dL (<2.0) 07/02/19 17:58 Ur Leukocyte Esterase Neg (Negative) 07/02/19 17:58 Urine WBC (Auto) 1.0 /HPF (0.0-6.0) 07/02/19 17:58 Urine RBC (Auto) 3.0 /HPF (0.0-6.0) 07/02/19 17:58 U Epithel Cells (Auto) 1.0 /HPF (0-13.0) 07/02/19 17:58 Urine Opiates Screen Presumptive negative 07/02/19 17:58 Urine Methadone Screen Presumptive negative 07/02/19 17:58 Ur Barbiturates Screen Presumptive negative 07/02/19 17:58 Ur Phencyclidine Scrn Presumptive negative 07/02/19 17:58 Ur Amphetamines Screen Presumptive negative 07/02/19 17:58 U Benzodiazepines Scrn Presumptive negative 07/02/19 17:58 Urine Cocaine Screen Presumptive negative 07/02/19 17:58 U Marijuana (THC) Screen Presumptive negative 07/02/19 17:58 Drugs of Abuse Note Disclamer 07/02/19 17:58 Active Medications - Current Medications Current Medications: Generic Name Dose Route Start Last Admin Trade Name Freq PRN Reason Stop Dose Admin Acetaminophen 650 mg 07/02/19 20:51 07/03/19 02:56 Tylenol PO 650 mg Q4H PRN Administration Pain MILD(1-3)/Fever >100.5/DAVID Amlodipine Besylate 10 mg 07/03/19 11:00 07/03/19 10:56 Amlodipine PO 10 mg QDAY ELROY Administration Dextrose 50 ml 07/02/19 17:23 D50w (25gm) Syringe IV Q30MIN PRN Hypoglycemia Protocol Heparin Sodium (Porcine) 5,000 unit 07/03/19 10:00 07/03/19 10:49 Heparin SUB-Q 5,000 unit Q12HR ELROY Administration Hydralazine HCl 10 mg 07/03/19 11:21 Apresoline IV Q4HR PRN Hypertension Sodium Chloride 1,000 mls @ 75 mls/hr 07/02/19 21:00 07/02/19 21:44 Nacl 0.9% 1000 Ml IV 75 mls/hr DIRECT ELROY Administration Insulin Human Lispro 0 unit 07/02/19 22:00 07/03/19 19:11 Humalog SUB-Q 8 unit Q4HR ELROY Administration Protocol Insulin Human NPH 7 unit 07/03/19 08:00 07/03/19 19:11 Humulin N SUB-Q 7 unit BIDDIAB ELROY Administration Ondansetron HCl 4 mg 07/03/19 11:21 Zofran IV Q4H PRN Nausea And Vomiting Oxycodone/Acetaminophen 1 tab 07/02/19 20:50 07/03/19 10:57 Percocet 5/325 PO 1 tab Q4H PRN Administration Pain , Severe (7-10) Sodium Chloride 10 ml 07/02/19 22:00 07/03/19 10:50 Sodium Chloride Flush Syringe 10 Ml IV 10 ml BID ELROY Administration Sodium Chloride 10 ml 07/02/19 20:51 Sodium Chloride Flush Syringe 10 Ml IV PRN PRN LINE FLUSH Nutrition/Malnutrition Assess - Dietary Evaluation Nutrition/Malnutrition Findings: Nutrition Notes Start: 07/03/19 13:07 Freq: Status: Active Protocol: Document 07/03/19 13:08 LM (Rec: 07/03/19 13:24 LM [id number]) Nutrition Notes Need for Assessment generated from: MD Order,Education Initial or Follow up Assessment Current Diagnosis Diabetes,Hypertension Other Pertinent Diagnosis hyperosmolar hyperglycemic coma, lupus, dehydration Current Diet Consistent CHO Labs/Tests Hgb A1c 10.5 Pertinent Medications Humalog Height 5 ft 6 in Weight 55.1 kg [place] Body Weight (kg) 59.09 BMI 19.5 Weight change and time frame 13% wt loss in 2 months Weight Status Appropriate Subjective/Other Information MD consult for diet education. Did not provise education to pt at time of visit due to pt hungry and not feeling well at time of visit. Pt stated she was eating "ok" at home and lost 18 lb starting 2 months ago. Brought pt Glucerna. Burn Absent Trauma Absent GI Symptoms None Current % PO Fair (50-74%) Minimum of two criteria Yes Energy Intake (non-severe) <75% Estimated Energy Requirement >7 days Interpretation of Weight Loss (severe) >5% in 1 month #1 Nutrition Diagnosis Malnutrition Etiology hyperosmolar hyperglycemia coma, chest pain As Evidenced by Signs and Symptoms 13% wt loss in 2 months, <75% EER > 7 days Is patient on ventilator? No Is Patient Ambulatory and/or Out of Bed Yes REE-([facility]-ambulatory/OOB) [ [id number] [id number]] Calculation Used for Recommendations [facility] Additional Notes Protein: 66-83g (1.2-1.5g/kg) Fluid: 1 ml/kcal Nutrition Intervention Change Diet Order: continue current Add Supplement/Snack (indicate name/kcal Glucerna chocolate BID /protein ) Provides kCal: 440 Provides Protein (gm) 20 Goal #1 Meet at least 80% of energy and protein needs Anticipated Discharge Needs: Consisntent CHO/cardiac Follow-Up By: 07/05/19 Additional Comments F/U for PO/ONS intakes
--- NOTE | 2019-07-04 01:10 | Treadmill Report ---
THALLIUM REPORT REASON FOR STUDY: Chest pain. IMAGING PROTOCOL: The patient received 10 mCi of Tc-99m Tetrofosmin for a rest imaging and 28 mCi of Tc-99m Tetrofosmin for a stress imaging. Imaging for all procedures was completed 30-90 minutes following the initial injection of Technetium 99m Tetrofosmin. SPECT imaging in the 180 degree arc was performed in the right anterior oblique projection. Computerized reconstruction of the images was performed for analysis. NUCLEAR IMAGING RESULTS: Normal left ventricular cavity size with no change from stress to rest. Distribution of radionuclide within the left ventricle revealed normal myocardial photon uptake with stress and rest imaging. Gated SPECT imaging revealed normal global LV systolic function with no significant wall motion abnormalities. The calculated left ventricular ejection fraction is 62%. IMPRESSION: Normal stress and rest myocardial perfusion imaging. Normal global LV systolic function with no significant wall motion abnormalities. EF is 62%. No evidence of a significant stress-induced ischemia or prior infarction. JOB# [id number] JUAN MANUEL/DANISH
[2019-07-04] MEDS: INSULIN LISPRO 100 UNIT/ML SUB-Q SCH ×6 (04:36→23:03)
[2019-07-04] MEDS: INSULIN NPH, HUMAN 100 UNIT/1 ML SUB-Q SCH ×2 (09:04→17:47)
[2019-07-04] MEDS: oxyCODONE /ACETAMINOPHEN 5-325MG TAB PO PRN (10:00)
[2019-07-04] MEDS: amLODIPine 10 MG TAB PO SCH (10:00)
[2019-07-04] MEDS: HEPARIN 5,000 UNIT/1 ML VIAL SUB-Q SCH ×2 (10:01→23:03)
--- NOTE | 2019-07-04 11:26 | Consultation ---
History of Present Illness - Reason for Consult Consult date: 07/04/19 Reason for consult: Mental Health Evaluation - Chief Complaint Chief complaint: Anxiety - History of Present Psychiatric Illness Precious Abreu is a 64y/o patient who is said to have come to the ER for chest pain. During my interview with the patient, she appears anxious. She is a/o x 2. Her face is tense. She is moving about in bed. She is dressed appropriately. She makes good eye contact. She is cooperative. She has a sitter at bedside. When asking the patient why she was brought to the hospital, she replies, "I don't know why they brought me. I just left." The patient states, "I'm not doing well at all. I can't get comfortable. I feel couped up." She denies any SI/HI. She says she had "one suicide attempt by overdose about 10 years ago." She also says it's been "years since she's seen a psychiatrist or been on any meds." She says "I used to be on meds. But I got off and I don't know why or remember them." The patient denies any drug or alcohol use. She says she "smokes cigarets sometimes." She also denies any hallucinations of any kind. She says "I'm agitated and I don't know why." The sitter at bedside says the patient has been "restless and agitated all morning." When asking the sitter was the patient aggressive, the patient replied, "no, I've never been aggressive. I wouldn't hurt nobody." The patients says, "I'm nervous and scared. I'm just afraid. I don't know why. I've been like this a couple of hours." She says, "can you give me something for anxiety." PAST PSYCHIATRIC HISTORY: Diagnoses: Anxiety and depression Suicide attempts or Self-harm behavior: OD 10 years ago Prior psychiatric hospitalizations: "years" Substance Abuse history: Denies Previous psychiatric medications tried: "can't remember" Outpatient treatment: Denies PAST MEDICAL HISTORY: none reported Family Psychiatric History None reported or documented SOCIAL HISTORY Marital Status: Living Arrangements: with family that's like my family Employment Status: Disabled Access to guns/weapons: Denies Education: 2 years of college History of Abuse: Denies Legal History: Denies REVIEW OF SYSTEMS Constitutional: Negative for weight loss ENT: Negative for stridor Respiratory: Negative for cough or hemoptysis All other systems reviewed and are negative MSE Appearance: Dressed appropriately. Behavior: moving about, good eye contact, cooperative Mood: Anxious Affect: Congruent Thought Process: Goal directed Speech: Normal tone and pace Thought Content Suicidal: Denies Homicidal: Denies Hallucinations: Denies Delusions: unsubstantiated fear Consciousness: Alert Cognition/Memory: Fair Insight/Judgment: Fair Assessment: Polysubstance Use Disorder Plan: Medications Buspar 5mg po BID Vistaril 25mg po q6h prn anxiety Doxepin 10mg po qhs Geodon 10mg IM q4h prn agitation Sitter: Defer to primary Medical: Per primary Disposition: The patient does not meet the criteria for acute inpatient psychiatric treatment at this time. She may discharge home once medically clear. The patient is to follow up with outpatient psychiatry or primary in 7 to 10 days for medication management and therapy Will follow until the patient is discharged. Medications and Allergies Allergies Allergy/AdvReac Type Severity Reaction Status Date / Time No Known Allergies Allergy Verified 09/25/17 08:53 Home Medications Medication Instructions Recorded Confirmed Last Taken Type Acetaminophen [Acetaminophen TAB] 325 mg PO Q4H PRN #5 tablet 08/27/17 07/02/19 Unknown Rx Metoclopramide [Reglan ORAL LIQ] 10 mg PO Q8H PRN #5 day 08/27/17 07/02/19 Unknown Rx oxyCODONE /ACETAMINOPHEN [Percocet 1 tab PO Q4H PRN #12 tablet 08/27/17 07/02/19 Unknown Rx 5/325 mg] Blood Sugar Diagnostic, Drum 1 each PRN #60 strip 09/25/17 07/02/19 Unknown Rx [Accu-Chek Compact] Blood-Glucose Meter [Accu-Chek 1 each PRN #1 each 09/25/17 07/02/19 Unknown Rx Guide Monitor System] Ibuprofen [Motrin] 800 mg PO Q8HR PRN #30 tablet 09/25/17 07/02/19 Unknown Rx Insulin NPH, Human [NovoLIN N] 7 unit SUB-Q BIDDIAB #30 day 09/25/17 07/02/19 Unknown Rx Insulin Regular, Human [HumuLIN R] 1 units SUB-Q ACHS PRN #30 day 09/25/17 07/02/19 Unknown Rx Syringe and Needle,Insulin,1Ml 1 each MC PRN #60 disp.syrin 09/25/17 07/02/19 Unknown Rx [Insulin Syringe/Needle 1 ML] lisinopriL [Zestril TAB] 10 mg PO QDAY #30 tablet 09/25/17 07/02/19 Unknown Rx Active Meds: Active Medications Acetaminophen (Tylenol) 650 mg PO Q4H PRN PRN Reason: Pain MILD(1-3)/Fever >100.5/DAVID Last Admin: 07/03/19 02:56 Dose: 650 mg Documented by: Amlodipine Besylate (Amlodipine) 10 mg PO QDAY [facility] Last Admin: 07/04/19 10:00 Dose: 10 mg Documented by: Dextrose (D50w (25gm) Syringe) 50 ml IV Q30MIN PRN; Protocol PRN Reason: Hypoglycemia Heparin Sodium (Porcine) (Heparin) 5,000 unit SUB-Q Q12HR [facility] Last Admin: 07/04/19 10:01 Dose: 5,000 unit Documented by: Hydralazine HCl (Apresoline) 10 mg IV Q4HR PRN PRN Reason: Hypertension Last Admin: 07/04/19 10:00 Dose: 10 mg Documented by: Sodium Chloride (Nacl 0.9% 1000 Ml) 1,000 mls @ 75 mls/hr IV DIRECT [facility] Last Admin: 07/02/19 21:44 Dose: 75 mls/hr Documented by: Insulin Human Lispro (Humalog) 0 unit SUB-Q Q4HR [facility]; Protocol Last Admin: 07/04/19 09:05 Dose: Not Given Documented by: Insulin Human NPH (Humulin N) 7 unit SUB-Q BIDDIAB [facility] Last Admin: 07/04/19 09:04 Dose: Not Given Documented by: Ondansetron HCl (Zofran) 4 mg IV Q4H PRN PRN Reason: Nausea And Vomiting Oxycodone/Acetaminophen (Percocet 5/325) 1 tab PO Q4H PRN PRN Reason: Pain , Severe (7-10) Last Admin: 07/04/19 10:00 Dose: 1 tab Documented by: Sodium Chloride (Sodium Chloride Flush Syringe 10 Ml) 10 ml IV BID ELROY Last Admin: 07/04/19 10:01 Dose: 10 ml Documented by: Sodium Chloride (Sodium Chloride Flush Syringe 10 Ml) 10 ml IV PRN PRN PRN Reason: LINE FLUSH Mental Status Exam - Vital signs Last Vital Signs Temp 97.8 F 07/04/19 11:03 Pulse 113 H 07/04/19 11:03 Resp 18 07/04/19 11:03 BP 111/64 07/04/19 11:03 Pulse Ox 95 07/04/19 11:03 Results Result Diagrams: 07/03/19 06:46 07/03/19 06:46 Abnormal lab results 07/03/19 07/03/19 07/03/19 Range/Units 14:05 18:01 22:05 POC Glucose 244 H 301 H 218 H (70-105) 07/04/19 07/04/19 07/04/19 Range/Units 02:11 05:03 07:29 POC Glucose 168 H 230 H 124 H (70-105) All other labs normal.
[2019-07-04] MEDS ORDERED: hydrOXYzine PAMOATE 25 MG CAP PO PRN (11:41)
[2019-07-04] MEDS ORDERED: WATER FOR INJ Sterile (PF) 10 ML ONE ×2 (13:01→17:28)
[2019-07-04] MEDS: ZIPRASIDONE MESYLATE 20 MG VIAL IM PRN ×2 (13:01→17:45)
[2019-07-04] MEDS: busPIRone 5 MG TAB PO SCH ×2 (13:01→23:04)
--- NOTE | 2019-07-04 18:01 | Discharge Summary ---
Providers - Providers Date of Admission: 07/02/19 17:43 Attending physician: JOHAN LIMON MD 07/02/19 20:52 Consult to Dietitian/Nutrition [CONS] Routine Physician Instructions: Reason For Exam: Reason for Consult: Diet education 07/03/19 14:08 Consult to Mental Health [CONS] Routine Reason For Exam: psyc hx Primary care physician: PRESIDENT AND [facility]MO Hospitalization Reason for admission: Depression Condition: Stable Hospital course: 64-year-old female comes in for chest pain. Patient states her chest pain started approximately 4 hours ago. Patient brought in by EMS. Patient states her chest pain is better with rest and worse with exertion. Patient denies shortness of breath. Patient states she is also having body aches. Patient states she is also having weakness. Initially had appeared uncomfortable the day before with nausea vomiting persistent although no vomiting was noted by me. She was evaluated by psych s tarted on a few medication was planned for discharge but was more sedated some of the medications discontinued the patient underwent a stress test which was negative. She is clinically stable at this point for discharge. Patient is being discharged back to [place] where she is in the outpatient facility and getting treatment. Persistent Nausea and vomiting -Resolved no inciting etiology noted Atypical Chest pain likely secondary to costochondritis following repeated vomiting Depression with polysubstance abuse IDDM (insulin dependent diabetes mellitus) -Continue insulin HTN (hypertension) Disposition: DC- TO HOME OR SELFCARE Time spent for discharge: 35-minute Core Measure Documentation - Palliative Care Palliative Care/ Comfort Measures: Not Applicable - Core Measures Any of the following diagnoses?: none Exam - Physical Exam Narrative exam: General appearance: Present: In no distress - EENT Eyes: Present: PERRL ENT: hearing intact, clear oral mucosa - Neck Neck: Present: supple, normal ROM - Respiratory Respiratory effort: normal Respiratory: bilateral: CTA - Cardiovascular Heart rate: 78 Rhythm: regular Heart Sounds: Present: S1 & S2. Absent: rub, click - Extremities Extremities: pulses symmetrical, No edema Peripheral Pulses: within normal limits - Abdominal General gastrointestinal: Present: soft, non-tender, non-distended, normal bowel sounds Female genitourinary: Present: normal - Integumentary Integumentary: Present: clear, warm, dry - Musculoskeletal Musculoskeletal: gait normal, strength equal bilaterally - Psychiatric Psychiatric: appropriate mood/affect, intact judgment & insight - Neurologic Neurologic: CNII-XII intact, moves all extremities - Constitutional Vitals: Temp Pulse Resp BP Pulse Ox 97.8 F 117 H 18 120/61 98 07/04/19 17:34 07/04/19 17:34 07/04/19 17:34 07/04/19 17:34 07/04/19 17:34 Plan Activity: advance as tolerated, fall precautions Diet: low fat, low salt Special Instructions: record daily weights, record daily BP diary Follow up with: PRIMARY CARE, [Primary Care Provider[facility] Prescriptions: amLODIPine 10 mg PO QDAY #30 tablet busPIRone [Buspar] 5 mg PO BID #60 tablet hydrOXYzine PAMOATE [Vistaril] 25 mg PO Q6H PRN #30 capsule PRN Reason: Anxiety
[2019-07-04] MEDS ORDERED: DOXEPIN 10 MG CAP PO SCH (22:00)
[2019-07-05] MEDS: INSULIN LISPRO 100 UNIT/ML SUB-Q SCH (01:32)
--- NOTE | 2019-07-05 01:36 | Event Note ---
Date: 07/04/19 Patient unable to be discharged. Patient received IM Geodon 10mg at approximately 1745. [employer] [facility] arrived to [facility] at 2100. Patient is drowsy and arouses to painful stimuli. [facility] was contacted and advised of situation. [facility]i [facility] stated that will they not accept patient because it is too late and transportation should be arranged for tomorrow.
[2019-07-05] MEDS: busPIRone 5 MG TAB PO SCH (08:53)
[2019-07-05] MEDS: amLODIPine 10 MG TAB PO SCH (08:58)
[2019-07-05 09:00] VITALS: BP 150/80
--- NOTE | 2019-07-05 10:06 | Progress Note ---
Assessment and Plan Assessment and plan: 64-year-old female comes in for chest pain. Patient states her chest pain started approximately 4 hours ago. Patient brought in by EMS. Patient states her chest pain is better with rest and worse with exertion. Patient denies shortness of breath. Patient states she is also having body aches. Patient states she is also having weakness. Initially had appeared uncomfortable the day before with nausea vomiting persistent although no vomiting was noted by me. She was evaluated by psych started on a few medication was planned for discharge but was more sedated some of the medications discontinued the patient underwent a stress test which was negative. She is clinically stable at this point for discharge. Persistent Nausea and vomiting -Start on zofran -Obtain further records, patient appears to have underlying psych issues per last admission -psych consultation -trial of Haldol Atypical Chest pain Current Visit: Yes Status: Acute Qualifiers: Chest pain type: unspecified Qualified Code(s): R07.9 - Chest pain, unspecified Plan to address problem: Chest pain w/u Srial troponins IDDM (insulin dependent diabetes mellitus) Current Visit: Yes Status: Chronic Plan to address problem: Cont home Insulin and coverge Check A1c HTN (hypertension) Current Visit: Yes Status: Chronic Qualifiers: Hypertension type: essential hypertension Qualified Code(s): I10 - Essential (primary) hypertension Plan to address problem: Cont antihypertensives DVT prophylaxis Current Visit: Yes Status: Acute Plan to address problem: On Heparin and GI prophylaxis History Interval history: Patient seen well rested today no further distress no further nausea vomiting. Hospitalist Physical - Physical exam Narrative exam: General appearance: Present: In no distress - EENT Eyes: Present: PERRL ENT: hearing intact, clear oral mucosa - Neck Neck: Present: supple, normal ROM - Respiratory Respiratory effort: normal Respiratory: bilateral: CTA - Cardiovascular Heart rate: 78 Rhythm: regular Heart Sounds: Present: S1 & S2. Absent: rub, click - Extremities Extremities: pulses symmetrical, No edema Peripheral Pulses: within normal limits - Abdominal General gastrointestinal: Present: soft, non-tender, non-distended, normal bowel sounds Female genitourinary: Present: normal - Integumentary Integumentary: Present: clear, warm, dry - Musculoskeletal Musculoskeletal: gait normal, strength equal bilaterally - Psychiatric Psychiatric: appropriate mood/affect, intact judgment & insight - Neurologic Neurologic: CNII-XII intact, moves all extremities - Constitutional Vitals: Temp Pulse Resp BP Pulse Ox 98.3 F 121 H 22 150/80 96 07/05/19 00:24 07/05/19 08:58 07/05/19 00:24 07/05/19 08:58 07/05/19 00:24 General appearance: Present: no acute distress, well-nourished JESSENIA score - Jessenia Score Age > 65: (0) No Aspirin use within the Past 7 Days: (1) Yes 3 or more CAD Risk Factors: (1) Yes 2 or more Angina events in past 24 hrs: (0) No Known CAD with more than 50% Stenosis: (0) No Elevated Cardiac Markers: (0) No ST Deviation Greater than 0.5mm: (0) No JESSENIA Score: 2 Results - Labs CBC & Chem 7: 07/03/19 06:46 07/03/19 06:46 Labs: Laboratory Last Values WBC 7.4 K/mm3 (4.5-11.0) 07/03/19 06:46 RBC 3.05 M/mm3 (3.65-5.03) L 07/03/19 06:46 Hgb 9.9 gm/dl (10.1-14.3) L 07/03/19 06:46 Hct 28.4 % (30.3-42.9) L 07/03/19 06:46 MCV 93 fl (79-97) 07/03/19 06:46 MCH 32 pg (28-32) 07/03/19 06:46 MCHC 35 % (30-34) H 07/03/19 06:46 RDW 14.0 % (13.2-15.2) 07/03/19 06:46 Plt Count 477 K/mm3 (140-440) H 07/03/19 06:46 Lymph % (Auto) 24.2 % (13.4-35.0) 07/03/19 06:46 [place] % (Auto) 7.2 % (0.0-7.3) 07/03/19 06:46 Eos % (Auto) 1.2 % (0.0-4.3) 07/03/19 06:46 Baso % (Auto) 1.3 % (0.0-1.8) 07/03/19 06:46 Lymph # 1.8 K/mm3 (1.2-5.4) 07/03/19 06:46 [place] # 0.5 K/mm3 (0.0-0.8) 07/03/19 06:46 Eos # 0.1 K/mm3 (0.0-0.4) 07/03/19 06:46 Baso # 0.1 K/mm3 (0.0-0.1) 07/03/19 06:46 Seg Neutrophils % 66.1 % (40.0-70.0) 07/03/19 06:46 Seg Neutrophils # 4.9 K/mm3 (1.8-7.7) 07/03/19 06:46 VBG pH 7.451 (7.320-7.420) H 07/02/19 16:40 Sodium 140 mmol/L (137-145) 07/03/19 06:46 Potassium 4.1 mmol/L (3.6-5.0) 07/03/19 06:46 Chloride 105.3 mmol/L (98-107) 07/03/19 06:46 Carbon Dioxide 20 mmol/L (22-30) L 07/03/19 06:46 Anion Gap 19 mmol/L 07/03/19 06:46 BUN 9 mg/dL (7-17) 07/03/19 06:46 Creatinine 0.4 mg/dL (0.7-1.2) L 07/03/19 06:46 Estimated GFR > 60 ml/min 07/03/19 06:46 BUN/Creatinine Ratio 23 % 07/03/19 06:46 Glucose 138 mg/dL (65-100) H 07/03/19 06:46 POC Glucose 193 (70-105) H 07/05/19 00:39 Hemoglobin A1c 10.5 % (4-6) H 07/03/19 06:46 Calcium 7.9 mg/dL (8.4-10.2) L 07/03/19 06:46 Phosphorus 2.20 mg/dL (2.5-4.5) L 07/02/19 18:07 Magnesium 1.60 mg/dL (1.7-2.3) L 07/02/19 18:07 Total Bilirubin 0.20 mg/dL (0.1-1.2) 07/03/19 06:46 AST 16 units/L (5-40) 07/03/19 06:46 ALT 16 units/L (7-56) 07/03/19 06:46 Alkaline Phosphatase 85 units/L (35-129) 07/03/19 06:46 Troponin T < 0.010 ng/mL (0.00-0.029) 07/03/19 06:46 Total Protein 5.8 g/dL (6.3-8.2) L 07/03/19 06:46 Albumin 2.4 g/dL (3.9-5) L 07/03/19 06:46 Albumin/Globulin Ratio 0.7 % 07/03/19 06:46 Urine Color Straw (Yellow) 07/02/19 17:58 Urine Turbidity Clear (Clear) 07/02/19 17:58 Urine pH 8.0 (5.0-7.0) H 07/02/19 17:58 Ur Specific Phillips 1.012 (1.003-1.030) 07/02/19 17:58 Urine Protein <15 mg/dl mg/dL (Negative) 07/02/19 17:58 Urine Glucose (UA) >=500 mg/dL (Negative) 07/02/19 17:58 Urine Ketones Neg mg/dL (Negative) 07/02/19 17:58 Urine Blood Neg (Negative) 07/02/19 17:58 Urine Nitrite Neg (Negative) 07/02/19 17:58 Urine Bilirubin Neg (Negative) 07/02/19 17:58 Urine Urobilinogen < 2.0 mg/dL (<2.0) 07/02/19 17:58 Ur Leukocyte Esterase Neg (Negative) 07/02/19 17:58 Urine WBC (Auto) 1.0 /HPF (0.0-6.0) 07/02/19 17:58 Urine RBC (Auto) 3.0 /HPF (0.0-6.0) 07/02/19 17:58 U Epithel Cells (Auto) 1.0 /HPF (0-13.0) 07/02/19 17:58 Urine Opiates Screen Presumptive negative 07/02/19 17:58 Urine Methadone Screen Presumptive negative 07/02/19 17:58 Ur Barbiturates Screen Presumptive negative 07/02/19 17:58 Ur Phencyclidine Scrn Presumptive negative 07/02/19 17:58 Ur Amphetamines Screen Presumptive negative 07/02/19 17:58 U Benzodiazepines Scrn Presumptive negative 07/02/19 17:58 Urine Cocaine Screen Presumptive negative 07/02/19 17:58 U Marijuana (THC) Screen Presumptive negative 07/02/19 17:58 Drugs of Abuse Note Disclamer 07/02/19 17:58 Active Medications - Current Medications Current Medications: Generic Name Dose Route Start Last Admin Trade Name Freq PRN Reason Stop Dose Admin Acetaminophen 650 mg 07/02/19 20:51 07/03/19 02:56 Tylenol PO 650 mg Q4H PRN Administration Pain MILD(1-3)/Fever >100.5/DAVID Amlodipine Besylate 10 mg 07/03/19 11:00 07/05/19 08:58 Amlodipine PO 10 mg QDAY ELROY Administration Buspirone HCl 5 mg 07/04/19 14:00 07/05/19 08:53 Buspar PO 5 mg BID ELROY Administration Dextrose 50 ml 07/02/19 17:23 D50w (25gm) Syringe IV Q30MIN PRN Hypoglycemia Protocol Doxepin HCl 10 mg 07/04/19 22:00 07/04/19 23:03 Sinequan PO Not Given QHS [facility] Heparin Sodium (Porcine) 5,000 unit 07/03/19 10:00 07/04/19 23:03 Heparin SUB-Q Not Given Q12HR [facility] Hydralazine HCl 10 mg 07/03/19 11:21 07/04/19 10:00 Apresoline IV 10 mg Q4HR PRN Administration Hypertension Hydroxyzine Pamoate 25 mg 07/04/19 11:41 07/04/19 14:46 Vistaril PO 25 mg Q6H PRN Administration Anxiety Sodium Chloride 1,000 mls @ 75 mls/hr 07/02/19 21:00 07/02/19 21:44 Nacl 0.9% 1000 Ml IV 75 mls/hr DIRECT ELROY Administration Insulin Human Lispro 0 unit 07/02/19 22:00 07/05/19 01:32 Humalog SUB-Q Not Given Q4HR [facility] Protocol Insulin Human NPH 7 unit 07/03/19 08:00 07/04/19 17:47 Humulin N SUB-Q Not Given BIDDIAB [facility] Ondansetron HCl 4 mg 07/03/19 11:21 Zofran IV Q4H PRN Nausea And Vomiting Oxycodone/Acetaminophen 1 tab 07/02/19 20:50 07/04/19 10:00 Percocet 5/325 PO 1 tab Q4H PRN Administration Pain , Severe (7-10) Sodium Chloride 10 ml 07/02/19 22:00 07/04/19 23:04 Sodium Chloride Flush Syringe 10 Ml IV Not Given BID ELROY Sodium Chloride 10 ml 07/02/19 20:51 Sodium Chloride Flush Syringe 10 Ml IV PRN PRN LINE FLUSH Nutrition/Malnutrition Assess - Dietary Evaluation Nutrition/Malnutrition Findings: Nutrition Notes Start: 07/03/19 13:07 Freq: Status: Active Protocol: Document 07/05/19 09:23 CW (Rec: 07/05/19 09:40 CW [id number]) Co-Sign 07/05/19 09:23 LP Nutrition Notes Need for Assessment generated from: Education Initial or Follow up Reassessment Current Diagnosis Diabetes,Hypertension Other Pertinent Diagnosis hyperosmolar hyperglycemic coma, lupus, dehydration Current Diet Consistent CHO Labs/Tests POC 193 Hgb A1c 10.5 Pertinent Medications Buspar Height 5 ft 6 in Weight 53.4 kg [place] Body Weight (kg) 59.09 BMI 19.0 Weight Status Appropriate Subjective/Other Information F/U PO/ONS intake. Pt stated feelings of nausea after eating breakfast. Reports liking recieving ONS. Attempted diet edu regarding DM however, pt was preoccupied with feelings of nausea and not receptive to education. Education handouts were given to pt. Approximately 25% breakfast eaten at time of visit on 07/05/2019. Burn Absent Trauma Absent GI Symptoms Nausea Current % PO Poor (25-49%) Minimum of two criteria Yes Energy Intake (non-severe) <75% Estimated Energy Requirement >7 days Interpretation of Weight Loss (severe) >5% in 1 month #2 Nutrition Diagnosis Limited adherence to nutrition -related recommendations Etiology advanced age, chronic illness As Evidenced by Signs and Symptoms pt reports feeling too ill to discuss diet education regarding DM, HgbA1c of 10.5 #1 Nutrition Diagnosis Malnutrition Diagnosis Progress(for reassessment Continues documentation) Is patient on ventilator? No Is Patient Ambulatory and/or Out of Bed Yes REE-([facility]. or-ambulatory/OOB) [ [id number] [id number]] Calculation Used for Recommendations Corky Bonilla Additional Notes Protein: 66-83g (1.2-1.5g/kg) Fluid: 1 ml/kcal Nutrition Intervention Change Diet Order: continue consistent carb diet Add Supplement/Snack (indicate name/kcal Glucerna chocolate BID /protein ) Provides kCal: 440 Provides Protein (gm) 20 Teaching Recipient Patient Learning Readiness Poor Teaching Methods Handout Response to Teaching Reinforcement needed,Refuses to learn Education Handouts Provided T2DM Carbohydrate Counting Barriers to Learning Motivation,Emotional RD phone number provided Yes Patient aware of follow up options Yes Goal #1 Meet at least 80% of energy and protein needs Goal #2 DM diet education Anticipated Discharge Needs: consitent carbohydrate diet Follow-Up By: 07/07/19 Additional Comments F/U diet education reinforcement, stable PO intakes
--- NOTE | 2019-07-05 13:35 | Progress Note ---
Subjective - Reason for Consult Consult date: 07/05/19 Reason for consult: PSYCHIATRIC ASSESSMENT - Chief Complaint Chief complaint: I interviewed the patient this morning. Medical records reviewed and patient's progress was discussed with unit staff. Nursing staff reports that patient In my interview with the patient this morning, the patient reports mood as "". Appetite is . Sleep last night was . Patient denies current SI, HI, AH, VH, and contracts to ask the staff for help if any of these symptoms increase Reason for continuing inpatient treatment Review of Symptoms: Constitutional: Negative for weight loss ENT: Negative for stridor Respiratory: Negative for cough or hemoptysis All other systems reviewed and are negative MSE Appearance: Wearing appropriate clothing. Good hygiene Behavior: Pleasant and cooperative. Mood: "Good" Affect: Congruent with stated mood Thought Process: Goal directed Speech: Normal rate. Thought Content Harmfulness Denies SI/HI Hallucinations: patient denies Delusions: none elicited Consciousness: alert. Cognition/Memory: normal. Insight/Judgment: Limited. RECOMMENDATIONS MEDICATIONS: Risks, benefits and alternatives of medications discussed with the patient, questions answered and consent obtained from patient. PSYCHOTHERAPY: Supportive psychotherapy provided MEDICAL: Per primary team DELIRIUM PRECAUTIONS: Please re-orient patient frequently, keep lights on during the day, and minimize benzodiazepines and opiates as these medications could worsen patient's confusion. FRIT MAKER: DISPOSITION: Per primary team; no indication for acute inpatient psychiatric hospitalization at this time LEGAL STATUS: FOLLOW-UP: Will follow Mental Status Exam - Vital signs Last Vital Signs Temp 98.3 F 07/05/19 00:24 Pulse 121 H 07/05/19 08:58 Resp 22 07/05/19 00:24 BP 150/80 07/05/19 08:58 Pulse Ox 100 07/05/19 12:43
== END 2019-07-05 14:56 | disposition home or self-care (01) ==
LOC: ED 15:59 → 4A 17:43
PROVIDERS: ADMIT Internal Medicine; ATTEND Internal Medicine
DX: R07.89 Other chest pain (principal); E11.65 Type 2 diabetes mellitus with hyperglycemia; E11.01 Type 2 diabetes mellitus with hyperosmolarity with coma; E86.0 Dehydration; I16.0 Hypertensive urgency; I10 Essential (primary) hypertension; M32.9 Systemic lupus erythematosus, unspecified; Z90.49 Acquired absence of other specified parts of digestive tract; Z98.890 Other specified postprocedural states; Z79.4 Long term (current) use of insulin
CPT/HCPCS: 36415; 71045; 74018; 78452; 80048; 80053; 80307; 81001; 82805; 82962; 83036; 83735; 84100; 84484; 85025; 93005; 93010; 93017; 96361; 96372; 96374; 96375; 99291; A9502; G0378; J0360; J1630; J1644; J2270; J2785; J3486; J7030; J1815; Q0177

== ENCOUNTER 2019-08-18 00:28 | Emergency (ER) | payer MEDICAID ==
--- NOTE | 2019-08-18 01:55 | XRay Report ---
CHEST 1 VIEW INDICATION: Chest Pain. COMPARISON: 07/02/2019 FINDINGS: SUPPORT DEVICES: None. HEART / MEDIASTINUM: No significant abnormality. LUNGS / PLEURA: No significant pulmonary or pleural abnormality. No pneumothorax. ADDITIONAL FINDINGS: IMPRESSION: 1. No acute cardiopulmonary disease Signer Name: Kvng Olivier MD Signed: 08/18/2019 1:50 AM Workstation Name: [id number]
[2019-08-18 02:21] LABS: Basophils # (Auto) 0.1 K/mm3 (0.0-0.1); Basophils % (Auto) 1.3 % (0.0-1.8); Eosinophils # (Auto) 0.1 K/mm3 (0.0-0.4); Eosinophils % (Auto) 1.3 % (0.0-4.3); Hematocrit 36.4 % (30.3-42.9); Hemoglobin 12.5 gm/dl (10.1-14.3); Lymphocytes # (Auto) 1.8 K/mm3 (1.2-5.4); Lymphocytes % (Auto) 30.8 % (13.4-35.0); Mean Corpuscular HGB Conc 34 % (30-34); Mean Corpuscular Volume 91 fl (79-97); Monocytes # (Auto) 0.3 K/mm3 (0.0-0.8); Monocytes % (Auto) 5.9 % (0.0-7.3); Platelet Count 305 K/mm3 (140-440); Red Blood Count 4.01 M/mm3 (3.65-5.03); Red Cell Distribution Width 13.3 % (13.2-15.2)
[2019-08-18 02:43] LABS: BUN/Creatinine Ratio 30; Blood Urea Nitrogen 18 mg/dL (7-17); Calcium 9.2 mg/dL (8.4-10.2); Hemolysis Index 3
[2019-08-18] MEDS ORDERED: MORPHINE 2 MG/1 ML INJ IV ONE (07:22)
[2019-08-18] MEDS ORDERED: ONDANSETRON 4 MG/2 ML INJ IV ONE (07:22)
--- NOTE | 2019-08-18 07:45 | Emergency Department Report ---
ED Abdominal Pain HPI - General Chief Complaint: Chest Pain Stated Complaint: CHEST PAIN/UPPER ABD PAIN Time Seen by Provider: 08/18/19 06:37 Source: patient, EMS Mode of arrival: Ambulatory Limitations: No Limitations - History of Present Illness Initial Comments: 64-year-old female, hx diabetes, HTN, stomach ulcers, presents to ED with complaint of abdominal pain. Patient states pain is located in the epigastric and suprapubic areas. States pain has been ongoing on for 2 to 3 days. Patient reports nausea, denies vomiting, diarrhea, shortness of breath, fever, cough. MD Complaint: abdominal pain -: days(s) Location: epigastric, suprapubic Radiation: none Migration to: no migration Quality: cramping Consistency: constant Improves With: nothing Worsens With: nothing Associated Symptoms: nausea. denies: vomiting, diarrhea, fever, constipation, dysuria - Related Data Previous Rx's Medication Instructions Recorded Last Taken Type Acetaminophen [Acetaminophen TAB] 325 mg PO Q4H PRN #5 tablet 08/27/17 Unknown Rx Metoclopramide [Reglan ORAL LIQ] 10 mg PO Q8H PRN #5 day 08/27/17 Unknown Rx oxyCODONE /ACETAMINOPHEN [Percocet 1 tab PO Q4H PRN #12 tablet 08/27/17 Unknown Rx 5/325 mg] Blood Sugar Diagnostic, Drum 1 each PRN #60 strip 09/25/17 Unknown Rx [Accu-Chek Compact Plus Strips] Blood-Glucose Meter [Accu-Chek 1 each PRN #1 each 09/25/17 Unknown Rx Guide Monitor System] Ibuprofen [Motrin 800 MG tab] 800 mg PO Q8HR PRN #30 tablet 09/25/17 Unknown Rx Insulin NPH, Human [NovoLIN N] 7 unit SUB-Q BIDDIAB #30 day 09/25/17 Unknown Rx Insulin Regular, Human [HumuLIN R] 1 units SUB-Q ACHS PRN #30 day 09/25/17 Unknown Rx Syringe and Needle,Insulin,1Ml 1 each PRN #60 disp.syrin 09/25/17 Unknown Rx [Insulin Syringe/Needle 1 ML] lisinopriL [Zestril TAB] 10 mg PO QDAY #30 tablet 09/25/17 Unknown Rx amLODIPine 10 mg PO QDAY #30 tablet 07/04/19 Unknown Rx busPIRone [Buspar] 5 mg PO BID #60 tablet 07/04/19 Unknown Rx hydrOXYzine PAMOATE [Vistaril] 25 mg PO Q6H PRN #30 capsule 07/04/19 Unknown Rx Dicyclomine [Bentyl] 20 mg PO QID PRN #20 tablet 08/18/19 Unknown Rx Ondansetron [Zofran Odt] 4 mg PO Q8HR PRN #20 tab.rapdis 08/18/19 Unknown Rx Allergies Allergy/AdvReac Type Severity Reaction Status Date / Time No Known Allergies Allergy Verified 09/25/17 08:53 ED Review of Systems ROS: Stated complaint: CHEST PAIN/UPPER ABD PAIN Other details as noted in HPI Comment: All other systems reviewed and negative Constitutional: denies: chills, fever Respiratory: denies: cough, shortness of breath Gastrointestinal: abdominal pain, nausea. denies: vomiting, diarrhea, constipation Genitourinary: denies: dysuria, frequency ED Past Medical Hx - Past Medical History Previous Medical History?: Yes Hx Hypertension: Yes Hx Congestive Heart Failure: No Hx Diabetes: Yes Hx Asthma: No Hx COPD: No Hx HIV: No Additional medical history: Lupus - Surgical History Past Surgical History?: Yes Hx Cholecystectomy: Yes Hx Appendectomy: Yes - Social History Smoking Status: Current Some Day Smoker Substance Use Type: None - Medications Home Medications: Home Medications Medication Instructions Recorded Confirmed Last Taken Type Acetaminophen [Acetaminophen TAB] 325 mg PO Q4H PRN #5 tablet 08/27/17 07/02/19 Unknown Rx Metoclopramide [Reglan ORAL LIQ] 10 mg PO Q8H PRN #5 day 08/27/17 07/02/19 Unknown Rx oxyCODONE /ACETAMINOPHEN [Percocet 1 tab PO Q4H PRN #12 tablet 08/27/17 07/02/19 Unknown Rx 5/325 mg] Blood Sugar Diagnostic, Drum 1 each PRN #60 strip 09/25/17 07/02/19 Unknown Rx [Accu-Chek Compact Plus Strips] Blood-Glucose Meter [Accu-Chek 1 each PRN #1 each 09/25/17 07/02/19 Unknown Rx Guide Monitor System] Ibuprofen [Motrin 800 MG tab] 800 mg PO Q8HR PRN #30 tablet 09/25/17 07/02/19 Unknown Rx Insulin NPH, Human [NovoLIN N] 7 unit SUB-Q BIDDIAB #30 day 09/25/17 07/02/19 Unknown Rx Insulin Regular, Human [HumuLIN R] 1 units SUB-Q ACHS PRN #30 day 09/25/17 07/02/19 Unknown Rx Syringe and Needle,Insulin,1Ml 1 each MC PRN #60 disp.syrin 09/25/17 07/02/19 Unknown Rx [Insulin Syringe/Needle 1 ML] lisinopriL [Zestril TAB] 10 mg PO QDAY #30 tablet 09/25/17 07/02/19 Unknown Rx amLODIPine 10 mg PO QDAY #30 tablet 07/04/19 Unknown Rx busPIRone [Buspar] 5 mg PO BID #60 tablet 07/04/19 Unknown Rx hydrOXYzine PAMOATE [Vistaril] 25 mg PO Q6H PRN #30 capsule 07/04/19 Unknown Rx Dicyclomine [Bentyl] 20 mg PO QID PRN #20 tablet 08/18/19 Unknown Rx Ondansetron [Zofran Odt] 4 mg PO Q8HR PRN #20 tab.rapdis 08/18/19 Unknown Rx ED Physical Exam - General Limitations: No Limitations General appearance: alert, in no apparent distress - Head Head exam: Present: atraumatic, normocephalic - Eye Eye exam: Present: normal appearance - ENT ENT exam: Present: mucous membranes moist - Neck Neck exam: Present: normal inspection - Respiratory Respiratory exam: Present: normal lung sounds bilaterally. Absent: respiratory distress - Cardiovascular Cardiovascular Exam: Present: regular rate, normal rhythm - GI/Abdominal GI/Abdominal exam: Present: soft, tenderness (epigastric and suprapubic tenderness present). Absent: distended - Extremities Exam Extremities exam: Present: normal inspection - Neurological Exam Neurological exam: Present: alert, oriented X3 - Psychiatric Psychiatric exam: Present: normal affect, normal mood - Skin Skin exam: Present: warm, dry, intact, normal color ED Course Vital Signs 08/18/19 08/18/19 08/18/19 00:58 05:54 07:18 Temperature 98.1 F Pulse Rate 95 H 94 H 95 H Respiratory 12 16 20 Rate Blood Pressure 184/107 Blood Pressure 181/91 184/89 [Right] O2 Sat by Pulse 97 100 100 Oximetry 08/18/19 10:41 Temperature Pulse Rate 88 Respiratory 18 Rate Blood Pressure Blood Pressure 196/99 [Right] O2 Sat by Pulse 97 Oximetry - Reevaluation(s) Reevaluation #1: 08/18/19 10:30 Pt feeling better. States abdominal resolved w/ pain meds. Tolerated PO challenge. ED Medical Decision Making - Lab Data Result diagrams: 08/18/19 01:41 08/18/19 01:41 - EKG Data -: EKG Interpreted by Nd EKG shows normal: sinus rhythm, axis, intervals, QRS complexes, ST-T waves Rate: normal - EKG Data Interpretation: no acute changes - Radiology Data Radiology results: report reviewed, image reviewed - Medical Decision Making - abd pain x 3 days, epigastric and suprapubic - labs unremarkable except for hyperglycemia - afebrile, normal WBCs - UA negative for UTI - CT Abd/ Pelvis shows mild left sided small bowel intussusception without evidence of bowel obstruction, also previously seen on prior CT, improved today radiographically - pt reports improvement of abd pain - tolerated PO challenge here in ED - BP elevated, advised to take BP meds when she gets home - outpt f/u advised - return precautions given - Differential Diagnosis UTI, pancreatitis, gastritis, bowel obstruction Critical care attestation.: If time is entered above; I have spent that time in minutes in the direct care of this critically ill patient, excluding procedure time. ED Disposition Clinical Impression: Abdominal pain Disposition: - TO HOME OR SELFCARE Is pt being admited?: No Condition: Stable Instructions: Abdominal Pain (ED) Prescriptions: Dicyclomine [Bentyl] 20 mg PO QID PRN #20 tablet PRN Reason: abdominal pain Ondansetron [Zofran Odt] 4 mg PO Q8HR PRN #20 tab.rapdis PRN Reason: Vomiting Referrals: [facility] [Provider Group] - 3-5 Days PRIMARY CARE, [Primary Care Provider] - 3-5 Days Time of Disposition: 10:31
[2019-08-18 07:46] LABS: Alanine Aminotransferase 8 units/L (7-56); Albumin 3.5 g/dL (3.9-5); Bilirubin,Direct < 0.2 mg/dL (0-0.2)
--- NOTE | 2019-08-18 09:27 | Cat Scan Report ---
CT ABDOMEN AND PELVIS CONTRAST HISTORY: Abdominal pain for 2 days. COMPARISON: 06/16/2019 TECHNIQUE: Routine abdominal and pelvic CT exam performed following intravenous contrast administrat ion.. All CT scans at this location are performed using CT dose reduction for ALARA by means of autom ated exposure control. FINDINGS: CT ABDOMEN: Lung Bases: No significant abnormality. Liver: No significant abnormality. Biliary: Normal bile ducts status post cholecystectomy. Stomach: Status post gastric bypass procedure with normal appearance of the gastric pouch. Spleen: No significant abnormality. Unenlarged. Pancreas: No significant abnormality. Adrenals: Left adrenal nodules are unchanged compared to previous exams. Kidneys: No significant abnormality. Renal collecting systems and ureters are nondilated. Lymphatics: No lymphadenopathy. Vasculature: No significant abnormality. Bowel/Peritoneum: Fluid distention of left-sided mid small bowel and mild intussusception at a small bowel anastomosis. However, the degree of intussusception is less than on the prior exam and there is no evidence of obstruction. No free air or ascites. An appendix is not identified but there are no s igns to suggest acute appendicitis. CT PELVIC: : Status post hysterectomy. No pelvic mass or fluid. Lymphatics: No lymphadenopathy. Osseous Structures: No aggressive appearing osseous lesions. Additional Findings: None IMPRESSION: 1. No significant abnormality. 2. Mild left-sided small bowel intussusception is less severe than on the last exam. I suspect that t his is an intermittent intussusception and of no clinical significance. 3. Status post cholecystectomy, hysterectomy and presumed appendectomy. Signer Name: Dominguez Portillo MD Signed: 08/18/2019 9:23 AM Workstation Name: [id number]
[2019-08-18] MEDS ORDERED: MORPHINE 4 MG/1 ML INJ ONE (09:33)
[2019-08-18] MEDS ORDERED: ONDANSETRON 4 MG/2 ML INJ ONE (09:33)
[2019-08-18 10:01] LABS: Bilirubin,Urine NEG (Negative); Blood,Urine NEG (Negative); Color,Urine Yellow (Yellow); Mucus,Urine FEW /HPF; Protein,Urine <15 mg/dL mg/dL (Negative); Urobilinogen,Urine < 2.0 mg/dL (<2.0)
[2019-08-18 10:42] VITALS: BP 196/99
== END 2019-08-18 11:40 | disposition home or self-care (01) ==
LOC: ED 00:28
DX: R10.13 Epigastric pain (principal); R11.0 Nausea
CPT/HCPCS: 36415; 71045; 74177; 80048; 80076; 81001; 83690; 84484; 85025; 93005; 93010; 96374; 96375; 99285; J2270; J2405; Q9967

== ENCOUNTER 2020-07-22 23:02 | Emergency (ER) | payer MEDICAID ==
--- NOTE | 2020-07-22 23:31 | Event Note ---
ED Screening Note ED Screening Note: Patient presents emergency room with complaints of "I feel sick" She states that she has abdominal pain and one episode of vomiting she denies diarrhea, she states she is having normal bowel movements She also has chronic leg pain which she has been seen for the past, hx of lupus This initial assessment/diagnostic orders/clinical plan/treatment(s) is/are subject to change based on patients health status, clinical progression and re- assessment by fellow clinical providers in the ED. Further treatment and workup at subsequent clinical providers discretion. Patient/guardian urged not to elope from the ED as their condition may be serious if not clinically assessed and managed. Initial orders include: labs, UA
[2020-07-23 00:29] LABS: Basophils # (Auto) 0.1 K/mm3 (0.0-0.1); Basophils % (Auto) 1.1 % (0.0-1.8); Eosinophils # (Auto) 0.1 K/mm3 (0.0-0.4); Hematocrit 29.1 % (30.3-42.9); Hemoglobin 9.7 gm/dl (10.1-14.3); Lymphocytes # (Auto) 1.8 K/mm3 (1.2-5.4); Lymphocytes % (Auto) 35.7 % (13.4-35.0); Mean Corpuscular HGB Conc 33 % (30-34); Mean Corpuscular Volume 91 fl (79-97); Monocytes # (Auto) 0.4 K/mm3 (0.0-0.8); Monocytes % (Auto) 8.8 % (0.0-7.3); Platelet Count 420 K/mm3 (140-440); Red Cell Distribution Width 13.4 % (13.2-15.2)
[2020-07-23 00:37] LABS: Alanine Aminotransferase 13 units/L (7-56); Blood Urea Nitrogen 17 mg/dL (7-17); Calcium 9.1 mg/dL (8.4-10.2); Hemolysis Index 1
[2020-07-23 00:57] LABS: BUN/Creatinine Ratio 34
[2020-07-23] MEDS ORDERED: MORPHINE 4 MG/1 ML INJ IV ONE (02:18)
[2020-07-23] MEDS ORDERED: SODIUM CHLORIDE 0.9% 1000 ML 1,000 ML IV ONE (02:18)
[2020-07-23] MEDS ORDERED: ONDANSETRON 4 MG/2 ML INJ IV ONE (02:18)
--- NOTE | 2020-07-23 02:21 | Emergency Department Report ---
ED Abdominal Pain HPI - General Chief Complaint: Abdominal Pain Stated Complaint: STOMACH/LEG PAIN Time Seen by Provider: 07/22/20 23:30 Source: patient Mode of arrival: Ambulatory Limitations: Physical Limitation - History of Present Illness Initial Comments: Patient is 65 years old female with history of hypertension, diabetes and lupus. Patient presented to the ER complaining of abdominal pain, diffuse, crampy in nature with no radiation. Patient stated that she is unable to keep anything down. No diarrhea. Patient also denied any fever or chills. No chest pain or shortness of breath. MD Complaint: abdominal pain -: days(s) Location: diffuse Radiation: none Migration to: no migration Severity scale (0 -10): 7 Quality: cramping Consistency: constant - Related Data Previous Rx's Medication Instructions Recorded Last Taken Type Acetaminophen [Acetaminophen TAB] 325 mg PO Q4H PRN #5 tablet 08/27/17 Unknown Rx Metoclopramide [Reglan ORAL LIQ] 10 mg PO Q8H PRN #5 day 08/27/17 Unknown Rx oxyCODONE /ACETAMINOPHEN [Percocet 1 tab PO Q4H PRN #12 tablet 08/27/17 Unknown Rx 5/325 mg] Blood Sugar Diagnostic, Drum 1 each PRN #60 strip 09/25/17 Unknown Rx [Accu-Chek Compact Plus Strips] Blood-Glucose Meter [Accu-Chek 1 each MC PRN #1 each 09/25/17 Unknown Rx Guide Monitor System] Ibuprofen [Motrin 800 MG tab] 800 mg PO Q8HR PRN #30 tablet 09/25/17 Unknown Rx Insulin NPH, Human [NovoLIN N] 7 unit SUB-Q BIDDIAB #30 day 09/25/17 Unknown Rx Insulin Regular, Human [HumuLIN R] 1 units SUB-Q ACHS PRN #30 day 09/25/17 Unknown Rx Syringe and Needle,Insulin,1Ml 1 each PRN #60 disp.syrin 09/25/17 Unknown Rx [Insulin Syringe/Needle 1 ML] lisinopriL [Zestril TAB] 10 mg PO QDAY #30 tablet 09/25/17 Unknown Rx amLODIPine 10 mg PO QDAY #30 tablet 07/04/19 Unknown Rx busPIRone [Buspar] 5 mg PO BID #60 tablet 07/04/19 Unknown Rx hydrOXYzine PAMOATE [Vistaril] 25 mg PO Q6H PRN #30 capsule 07/04/19 Unknown Rx Dicyclomine [Bentyl] 20 mg PO QID PRN #20 tablet 08/18/19 Unknown Rx Ondansetron [Zofran Odt] 4 mg PO Q8HR PRN #20 tab.rapdis 08/18/19 Unknown Rx Dicyclomine [Bentyl] 20 mg PO QID #30 tablet 07/23/20 Unknown Rx Ondansetron [Zofran Odt] 4 mg PO Q8HR PRN #14 tab.rapdis 07/23/20 Unknown Rx traMADoL [Ultram 50 MG tab] 50 mg PO Q4HR PRN #14 tablet 07/23/20 Unknown Rx Allergies Allergy/AdvReac Type Severity Reaction Status Date / Time No Known Allergies Allergy Verified 09/25/17 08:53 ED Review of Systems ROS: Stated complaint: STOMACH/LEG PAIN Other details as noted in HPI Comment: All other systems reviewed and negative Constitutional: denies: chills, fever Respiratory: denies: cough, shortness of breath, SOB with exertion Cardiovascular: denies: chest pain, palpitations Gastrointestinal: abdominal pain, nausea, vomiting. denies: diarrhea Musculoskeletal: denies: back pain Neurological: denies: headache, weakness, numbness, paresthesias, confusion ED Past Medical Hx - Past Medical History Hx Hypertension: Yes Hx Congestive Heart Failure: No Hx Diabetes: Yes Hx Asthma: No Hx COPD: No Hx HIV: No Additional medical history: Lupus - Surgical History Hx Cholecystectomy: Yes Hx Appendectomy: Yes - Social History Smoking Status: Never Smoker Substance Use Type: None - Medications Home Medications: Home Medications Medication Instructions Recorded Confirmed Last Taken Type Acetaminophen [Acetaminophen TAB] 325 mg PO Q4H PRN #5 tablet 08/27/17 07/02/19 Unknown Rx Metoclopramide [Reglan ORAL LIQ] 10 mg PO Q8H PRN #5 day 08/27/17 07/02/19 Unknown Rx oxyCODONE /ACETAMINOPHEN [Percocet 1 tab PO Q4H PRN #12 tablet 08/27/17 07/02/19 Unknown Rx 5/325 mg] Blood Sugar Diagnostic, Drum 1 each MC PRN #60 strip 09/25/17 07/02/19 Unknown Rx [Accu-Chek Compact Plus Strips] Blood-Glucose Meter [Accu-Chek 1 each PRN #1 each 09/25/17 07/02/19 Unknown Rx Guide Monitor System] Ibuprofen [Motrin 800 MG tab] 800 mg PO Q8HR PRN #30 tablet 09/25/17 07/02/19 Unknown Rx Insulin NPH, Human [NovoLIN N] 7 unit SUB-Q BIDDIAB #30 day 09/25/17 07/02/19 U nknown Rx Insulin Regular, Human [HumuLIN R] 1 units SUB-Q ACHS PRN #30 day 09/25/17 07/02/19 Unknown Rx Syringe and Needle,Insulin,1Ml 1 each MC PRN #60 disp.syrin 09/25/17 07/02/19 Unknown Rx [Insulin Syringe/Needle 1 ML] lisinopriL [Zestril TAB] 10 mg PO QDAY #30 tablet 09/25/17 07/02/19 Unknown Rx amLODIPine 10 mg PO QDAY #30 tablet 07/04/19 Unknown Rx busPIRone [Buspar] 5 mg PO BID #60 tablet 07/04/19 Unknown Rx hydrOXYzine PAMOATE [Vistaril] 25 mg PO Q6H PRN #30 capsule 07/04/19 Unknown Rx Dicyclomine [Bentyl] 20 mg PO QID PRN #20 tablet 08/18/19 Unknown Rx Ondansetron [Zofran Odt] 4 mg PO Q8HR PRN #20 tab.rapdis 08/18/19 Unknown Rx Dicyclomine [Bentyl] 20 mg PO QID #30 tablet 07/23/20 Unknown Rx Ondansetron [Zofran Odt] 4 mg PO Q8HR PRN #14 tab.rapdis 07/23/20 Unknown Rx traMADoL [Ultram 50 MG tab] 50 mg PO Q4HR PRN #14 tablet 07/23/20 Unknown Rx ED Physical Exam - General Limitations: Physical Limitation General appearance: alert, in no apparent distress - Head Head exam: Present: atraumatic, normocephalic, normal inspection - Eye Eye exam: Present: normal appearance - ENT ENT exam: Present: normal exam, normal orophraynx, mucous membranes moist - Neck Neck exam: Present: normal inspection, full ROM. Absent: tenderness, meningismus - Respiratory Respiratory exam: Present: normal lung sounds bilaterally - Cardiovascular Cardiovascular Exam: Present: regular rate, normal rhythm, normal heart sounds - GI/Abdominal GI/Abdominal exam: Present: soft, normal bowel sounds. Absent: distended, tenderness, guarding, rebound, rigid, mass, bruit, pulsatile mass, hernia - Extremities Exam Extremities exam: Present: normal inspection, full ROM, normal capillary refill. Absent: tenderness - Back Exam Back exam: Present: normal inspection, full ROM. Absent: CVA tenderness (R), CVA tenderness (L) - Neurological Exam Neurological exam: Present: alert, oriented X3, CN II-XII intact, normal gait, reflexes normal - Psychiatric Psychiatric exam: Present: normal mood - Skin Skin exam: Present: warm, intact, normal color ED Course Vital Signs 07/22/20 07/23/20 07/23/20 23:09 03:11 03:43 Temperature 97.5 F L Pulse Rate 94 H Respiratory 16 20 Rate Blood Pressure 171/67 174/71 O2 Sat by Pulse 100 97 100 Oximetry 07/23/20 07/23/20 07/23/20 03:45 04:30 04:46 Temperature Pulse Rate Respiratory Rate Blood Pressure 168/82 O2 Sat by Pulse 100 99 98 Oximetry 07/23/20 07/23/20 07/23/20 05:10 05:16 05:30 Temperature Pulse Rate Respiratory Rate Blood Pressure O2 Sat by Pulse 100 100 100 Oximetry 07/23/20 07/23/20 05:46 07:00 Temperature Pulse Rate Respiratory Rate Blood Pressure 167/62 133/63 O2 Sat by Pulse 100 100 Oximetry ED Medical Decision Making - Lab Data Result diagrams: 07/22/20 23:53 07/22/20 23:53 - Radiology Data Radiology results: report reviewed - Medical Decision Making Patient is 65 years old female with history of hypertension, diabetes and lupus. Patient presented to the ER complaining of abdominal pain, diffuse, crampy in nature with no radiation. Patient stated that she is unable to keep anything down. No diarrhea. Patient also denied any fever or chills. No chest pain or shortness of breath. Patient received morphine, Zofran and Reglan. Patient stated that she is feeling better. Labs reviewed and is unremarkable. CT abdomen and pelvis with IV contrast is unremarkable for acute finding. Patient given prescription for Zofran, Bentyl and tramadol advised to follow-up with her primary care physician in the next 2 to 3 days and to return to the ER if she develop any new symptoms. Critical care attestation.: If time is entered above; I have spent that time in minutes in the direct care of this critically ill patient, excluding procedure time. ED Disposition Clinical Impression: Acute nausea with nonbilious vomiting, Acute abdominal pain Disposition: TO HOME OR SELFCARE Is pt being admited?: No Condition: Stable Instructions: Flank Pain, Adult, [id number], Abdominal Pain (ED) Prescriptions: Dicyclomine [Bentyl] 20 mg PO QID #30 tablet traMADoL [Ultram 50 MG tab] 50 mg PO Q4HR PRN #14 tablet PRN Reason: Pain Ondansetron [Zofran Odt] 4 mg PO Q8HR PRN #14 tab.rapdis PRN Reason: Nausea And Vomiting Referrals: PRIMARY CARE, [Primary Care Provider] - 3-5 Days
--- NOTE | 2020-07-23 04:36 | Cat Scan Report ---
CT ABDOMEN AND PELVIS WITH CONTRAST INDICATION / CLINICAL INFORMATION: Patient complains of severe abdominal pain. TECHNIQUE: Axial CT images were obtained through the abdomen and pelvis after IV contrast. All CT sc ans at this location are performed using CT dose reduction for ALARA by means of automated exposure c ontrol. COMPARISON: CT dated 06/17/2020 FINDINGS: LOWER CHEST: No significant abnormality LIVER: No significant abnormality GALLBLADDER/BILIARY TREE: Cholecystectomy. PANCREAS: No significant abnormality SPLEEN: No significant abnormality ADRENALS: Left adrenal myelolipoma and additional adrenal nodules are unchanged from prior study. KIDNEYS / URETER: No significant abnormality URINARY BLADDER: No significant abnormality REPRODUCTIVE ORGANS: Uterus is absent. No significant adnexal abnormality. STOMACH / SMALL BOWEL: Postoperative changes of prior gastric bypass with redemonstration of small lino wel intussusception. This is unchanged in appearance from prior study from 06/17/2020. No evidence of obstruction. No pneumatosis. COLON: Colonic diverticulosis without evidence of diverticulitis. The appendix is not discretely seen , though there are no secondary signs of appendicitis. LYMPH NODES: No significant adenopathy. VASCULATURE: Moderate atherosclerotic calcification without acute abnormality. OTHER: No free air, free fluid, or focal fluid collection is identified. SKELETAL SYSTEM: No acute osseous findings. IMPRESSION: 1. Postoperative changes of gastric bypass with redemonstration of left-sided small bowel intussuscep tion. No evidence of obstruction at this time. 2. Other stable chronic and incidental findings as above. Signer Name: Micheal oCle MD Signed: 07/23/2020 4:31 AM Workstation Name: [id number]
[2020-07-23] MEDS ORDERED: HYDROmorphone 1 MG/1 ML INJ IV ONE (05:10)
[2020-07-23] MEDS ORDERED: METOCLOPRAMIDE 10 MG/2 ML INJ IV ONE (05:10)
[2020-07-23] MEDS ORDERED: diphenhydrAMINE 50 MG/ML VIAL IV ONE (05:12)
[2020-07-23 05:23] LABS: Bilirubin,Urine NEG (Negative); Blood,Urine NEG (Negative); Color,Urine Yellow (Yellow); Mucus,Urine FEW /HPF; Protein,Urine <15 mg/dL mg/dL (Negative)
[2020-07-23 07:10] VITALS: BP 133/63
== END 2020-07-23 10:30 | disposition home or self-care (01) ==
LOC: ED 23:02
DX: R10.84 Generalized abdominal pain (principal); R11.2 Nausea with vomiting, unspecified; I10 Essential (primary) hypertension; E11.9 Type 2 diabetes mellitus without complications; Z90.49 Acquired absence of other specified parts of digestive tract; Z79.4 Long term (current) use of insulin; Z79.899 Other long term (current) drug therapy
CPT/HCPCS: 36415; 74177; 80053; 81001; 83690; 85025; 96361; 96374; 96375; 99284; J1170; J1200; J2270; J2405; J2765; J7030; Q9967

== ENCOUNTER 2020-07-23 12:42 | Emergency (ER) | payer MEDICAID ==
[2020-07-23 13:11] VITALS: BP 157/54
--- NOTE | 2020-07-23 14:04 | Event Note ---
ED Screening Note Date of service: 07/23/20 Time: 14:01 ED Screening Note: She was seen here earlier this morning with complaints of abdominal pain. Patient had a full work-up including a CT scan which showed nothing acute. Patient was discharged in stable condition. When patient was discharged, she stayed on hospital premises and she reported that she had no one to pick her up. She states that she still continues to have abdominal pain and she now is having problems with her memory, she does not know where she lives, where to go, nor does she know where she is. She feels like something is wrong with her brain. Patient Tearful and patient is repeatedly seen in the ER triage "help me please" This initial assessment/diagnostic orders/clinical plan/treatment(s) is/are subject to change based on patients health status, clinical progression and re- assessment by fellow clinical providers in the ED. Further treatment and workup at subsequent clinical providers discretion. Patient/guardian urged not to elope from the ED as their condition may be serious if not clinically assessed and managed. Initial orders include: Psych jonathanal
--- NOTE | 2020-07-23 15:27 | Emergency Department Report ---
ED General Adult HPI - General Chief complaint: Medical Clearance Stated complaint: MEDICAL LUCILA Time Seen by Provider: 07/23/20 13:45 Source: patient Mode of arrival: Ambulatory Limitations: No Limitations - History of Present Illness Initial comments: 65-year-old female with history of hypertension, diabetes, and lupus, presents to the ED stating "I have no place to go." Patient was seen early this morning with complaint of abdominal pain. She had a full work-up including labs and CT scan. Patient was discharged from the ED with prescriptions. Patient has no new complaints other than this abdominal pain. Patient apparently never left the waiting room following discharge. She presented to the triage desk telling her that she had no place to go. Patient states she lives in a prison, but she does not like it there. She states they brought her to the emergency room and "dropped me off and left me here." Patient states the river boat captain of the prison is Matthew Castillo. Patient denies any SI or HI. -: This morning Location: abdomen Consistency: constant Improves with: none Worsens with: none Associated Symptoms: denies other symptoms Treatments Prior to Arrival: none - Related Data Previous Rx's Medication Instructions Recorded Last Taken Type Acetaminophen [Acetaminophen TAB] 325 mg PO Q4H PRN #5 tablet 08/27/17 Unknown Rx Metoclopramide [Reglan ORAL LIQ] 10 mg PO Q8H PRN #5 day 08/27/17 Unknown Rx oxyCODONE /ACETAMINOPHEN [Percocet 1 tab PO Q4H PRN #12 tablet 08/27/17 Unknown Rx 5/325 mg] Blood Sugar Diagnostic, Drum 1 each PRN #60 strip 09/25/17 Unknown Rx [Accu-Chek Compact Plus Strips] Blood-Glucose Meter [Accu-Chek 1 each MC PRN #1 each 09/25/17 Unknown Rx Guide Monitor System] Ibuprofen [Motrin 800 MG tab] 800 mg PO Q8HR PRN #30 tablet 09/25/17 Unknown Rx Insulin NPH, Human [NovoLIN N] 7 unit SUB-Q BIDDIAB #30 day 09/25/17 Unknown Rx Insulin Regular, Human [HumuLIN R] 1 units SUB-Q ACHS PRN #30 day 09/25/17 Unknown Rx Syringe and Needle,Insulin,1Ml 1 each PRN #60 disp.syrin 09/25/17 Unknown Rx [Insulin Syringe/Needle 1 ML] lisinopriL [Zestril TAB] 10 mg PO QDAY #30 tablet 09/25/17 Unknown Rx amLODIPine 10 mg PO QDAY #30 tablet 07/04/19 Unknown Rx busPIRone [Buspar] 5 mg PO BID #60 tablet 07/04/19 Unknown Rx hydrOXYzine PAMOATE [Vistaril] 25 mg PO Q6H PRN #30 capsule 07/04/19 Unknown Rx Dicyclomine [Bentyl] 20 mg PO QID PRN #20 tablet 08/18/19 Unknown Rx Ondansetron [Zofran Odt] 4 mg PO Q8HR PRN #20 tab.rapdis 08/18/19 Unknown Rx Dicyclomine [Bentyl] 20 mg PO QID #30 tablet 07/23/20 Unknown Rx Ondansetron [Zofran Odt] 4 mg PO Q8HR PRN #14 tab.rapdis 07/23/20 Unknown Rx traMADoL [Ultram 50 MG tab] 50 mg PO Q4HR PRN #14 tablet 07/23/20 Unknown Rx Allergies Allergy/AdvReac Type Severity Reaction Status Date / Time No Known Allergies Allergy Verified 09/25/17 08:53 ED Review of Systems ROS: Stated complaint: MEDICAL LUCILA Other details as noted in HPI Comment: All other systems reviewed and negative Gastrointestinal: abdominal pain Psychiatric: denies: homicidal thoughts, suicidal thoughts ED Past Medical Hx - Past Medical History Previous Medical History?: Yes Hx Hypertension: Yes Hx Congestive Heart Failure: No Hx Diabetes: Yes Hx Asthma: No Hx COPD: No Hx HIV: No Additional medical history: Lupus - Surgical History Past Surgical History?: Yes Hx Cholecystectomy: Yes Hx Appendectomy: Yes - Social History Smoking Status: Never Smoker Substance Use Type: None - Medications Home Medications: Home Medications Medication Instructions Recorded Confirmed Last Taken Type Acetaminophen [Acetaminophen TAB] 325 mg PO Q4H PRN #5 tablet 08/27/17 07/02/19 Unknown Rx Metoclopramide [Reglan ORAL LIQ] 10 mg PO Q8H PRN #5 day 08/27/17 07/02/19 Unknown Rx oxyCODONE /ACETAMINOPHEN [Percocet 1 tab PO Q4H PRN #12 tablet 08/27/17 07/02/19 Unknown Rx 5/325 mg] Blood Sugar Diagnostic, Drum 1 each PRN #60 strip 09/25/17 07/02/19 Unknown Rx [Accu-Chek Compact Plus Strips] Blood-Glucose Meter [Accu-Chek 1 each PRN #1 each 09/25/17 07/02/19 Unknown Rx Guide Monitor System] Ibuprofen [Motrin 800 MG tab] 800 mg PO Q8HR PRN #30 tablet 09/25/17 07/02/19 Unknown Rx Insulin NPH, Human [NovoLIN N] 7 unit SUB-Q BIDDIAB #30 day 09/25/17 07/02/19 Unknown Rx Insulin Regular, Human [HumuLIN R] 1 units SUB-Q ACHS PRN #30 day 09/25/17 07/02/19 Unknown Rx Syringe and Needle,Insulin,1Ml 1 each PRN #60 disp.syrin 09/25/17 07/02/19 Unknown Rx [Insulin Syringe/Needle 1 ML] lisinopriL [Zestril TAB] 10 mg PO QDAY #30 tablet 09/25/17 07/02/19 Unknown Rx amLODIPine 10 mg PO QDAY #30 tablet 07/04/19 Unknown Rx busPIRone [Buspar] 5 mg PO BID #60 tablet 07/04/19 Unknown Rx hydrOXYzine PAMOATE [Vistaril] 25 mg PO Q6H PRN #30 capsule 07/04/19 Unknown Rx Dicyclomine [Bentyl] 20 mg PO QID PRN #20 tablet 08/18/19 Unknown Rx Ondansetron [Zofran Odt] 4 mg PO Q8HR PRN #20 tab.rapdis 08/18/19 Unknown Rx Dicyclomine [Bentyl] 20 mg PO QID #30 tablet 07/23/20 Unknown Rx Ondansetron [Zofran Odt] 4 mg PO Q8HR PRN #14 tab.rapdis 07/23/20 Unknown Rx traMADoL [Ultram 50 MG tab] 50 mg PO Q4HR PRN #14 tablet 07/23/20 Unknown Rx ED Physical Exam - General Limitations: No Limitations General appearance: alert, in no apparent distress - Head Head exam: Present: atraumatic, normocephalic - Eye Eye exam: Present: normal appearance, EOMI - ENT ENT exam: Present: mucous membranes moist - Neck Neck exam: Present: normal inspection - Respiratory Respiratory exam: Present: normal lung sounds bilaterally. Absent: respiratory distress - Cardiovascular Cardiovascular Exam: Present: regular rate, normal rhythm - GI/Abdominal GI/Abdominal exam: Present: soft. Absent: distended, tenderness - Extremities Exam Extremities exam: Present: normal inspection - Neurological Exam Neurological exam: Present: alert, oriented X3 - Psychiatric Psychiatric exam: Present: normal affect, normal mood - Skin Skin exam: Present: warm, dry, intact, normal color ED Course Vital Signs 07/23/20 13:10 Temperature 97.5 F L Pulse Rate 106 H Respiratory 20 Rate Blood Pressure 157/54 [Right] O2 Sat by Pulse 98 Oximetry ED Medical Decision Making - Medical Decision Making Patient seen by case management who spoke with patient's prison director. Patient has agreed to go back to her prison. Arrangements will be made for transportation home. Critical care attestation.: If time is entered above; I have spent that time in minutes in the direct care of this critically ill patient, excluding procedure time. ED Disposition Clinical Impression: Distressed about housing issues Disposition: DC-01 TO HOME OR SELFCARE Is pt being admited?: No Condition: Stable Referrals: PRIMARY CAREMD [Primary Care Provider] - 3-5 Days [facility] [Provider Group] - 3-5 Days Time of Disposition: 17:04
== END 2020-07-23 17:20 | disposition home or self-care (01) ==
LOC: ED 12:42
DX: R10.9 Unspecified abdominal pain (principal); Z59.9 Problem related to housing and economic circumstances, unspecified; I10 Essential (primary) hypertension; E11.9 Type 2 diabetes mellitus without complications; Z90.49 Acquired absence of other specified parts of digestive tract; Z79.4 Long term (current) use of insulin; Z79.899 Other long term (current) drug therapy
CPT/HCPCS: 36415; 80320; 99283; G0480

== ENCOUNTER 2020-09-29 19:02 | Emergency (ER) | payer MEDICAID ==
[2020-09-29 20:13] VITALS: BP 134/57
--- NOTE | 2020-09-29 20:35 | Event Note ---
ED Screening Note Date of service: 09/29/20 Time: 20:34 ED Screening Note: 65-year-old female who has multiple visits here to the emergency room for the same complaint of nausea. Patient was last seen here on 09/26/2020 and discharged on 09/27/1930 with a complete work-up. It was noted that patient had a urinary tract infection and was placed on antibiotics. This initial assessment/diagnostic orders/clinical plan/treatment(s) is/are subject to change based on patients health status, clinical progression and re- assessment by fellow clinical providers in the ED. Further treatment and workup at subsequent clinical providers discretion. Patient/guardian urged not to elope from the ED as their condition may be serious if not clinically assessed and managed. Initial orders include: CBC, CMP, urinalysis
[2020-09-29 20:56] LABS: Basophils # (Auto) 0.1 K/mm3 (0.0-0.1); Basophils % (Auto) 0.4 % (0.0-1.8); Eosinophils % (Auto) 0.3 % (0.0-4.3); Hematocrit 26.4 % (30.3-42.9); Hemoglobin 8.5 gm/dl (10.1-14.3); Lymphocytes # (Auto) 0.8 K/mm3 (1.2-5.4); Mean Corpuscular HGB Conc 32 % (30-34); Mean Corpuscular Volume 85 fl (79-97); Monocytes # (Auto) 0.5 K/mm3 (0.0-0.8); Monocytes % (Auto) 3.9 % (0.0-7.3); Platelet Count 839 K/mm3 (140-440); Red Cell Distribution Width 15.8 % (13.2-15.2)
[2020-09-29 21:12] LABS: Alanine Aminotransferase 18 units/L (7-56); Blood Urea Nitrogen 21 mg/dL (7-17); Hemolysis Index 15
[2020-09-29 21:18] LABS: BUN/Creatinine Ratio 35
== END 2020-09-30 05:59 | disposition left against medical advice (07) ==
LOC: ED 19:02
DX: R11.2 Nausea with vomiting, unspecified (principal); Z53.21 Procedure and treatment not carried out due to patient leaving prior to being seen by health care provider
CPT/HCPCS: 36415; 80053; 85025

== ENCOUNTER 2021-03-25 18:10 | Emergency (ER) | payer MEDICAID ==
[2021-03-25 21:20] LABS: Basophils % (Auto) 0.8 % (0.0-1.8); Eosinophils % (Auto) 0.4 % (0.0-4.3); Hematocrit 24.8 % (30.3-42.9); Hemoglobin 8.1 gm/dl (10.1-14.3); Lymphocytes % (Auto) 23.9 % (13.4-35.0); Mean Corpuscular HGB Conc 33 % (30-34); Mean Corpuscular Volume 96 fl (79-97); Monocytes # (Auto) 0.4 K/mm3 (0.0-0.8); Monocytes % (Auto) 9.4 % (0.0-7.3); Platelet Count 391 K/mm3 (140-440); Red Blood Count 2.59 M/mm3 (3.65-5.03); Red Cell Distribution Width 17.7 % (13.2-15.2)
[2021-03-25 21:29] LABS: Blood Urea Nitrogen 38 mg/dL (7-17); Calcium 7.9 mg/dL (8.4-10.2); Hemolysis Index 12
[2021-03-25 21:30] LABS: BUN/Creatinine Ratio 76
[2021-03-25 21:33] LABS: Alanine Aminotransferase 35 units/L (7-56); Albumin 3.5 g/dL (3.9-5)
[2021-03-25 21:34] LABS: Bilirubin,Direct < 0.2 mg/dL (0-0.2)
[2021-03-25 21:42] LABS: Amphetamine Screen,Urine PRESUMPTIVE NEGATIVE; Benzodiazepines Screen,Urine PRESUMPTIVE NEGATIVE; Cannabinoid Screen,Urine PRESUMPTIVE NEGATIVE; Cocaine Screen,Urine PRESUMPTIVE NEGATIVE; Methadone Screen,Urine PRESUMPTIVE NEGATIVE; Opiate Screen,Urine PRESUMPTIVE NEGATIVE
--- NOTE | 2021-03-25 21:49 | XRay Report ---
XR abd series w cxr 1V INDICATION / CLINICAL INFORMATION: abd pain. COMPARISON: 09/03/2020, chest x-ray 09/26/2020 FINDINGS: SUPPORT DEVICES: None. HEART / MEDIASTINUM: No significant abnormality. LUNGS / PLEURA: Lungs are clear. Costophrenic sulci are sharp. No pneumothorax. ABDOMEN: Nonobstructive bowel gas pattern. No pneumoperitoneum. Moderate amount of stool throughout t he abdomen. ADDITIONAL FINDINGS: S-shaped curvature of the thoracic lumbar spine, similar with reference exam. Ch ronic deformity of the proximal right humerus, also similar with reference exam. IMPRESSION: 1. No acute findings. 2. Nonobstructive bowel gas pattern. 3. Moderate stool throughout the abdomen, can reflect constipation. Signer Name: Shay Pemberton MD Signed: 03/25/2021 9:45 PM Workstation Name: [id number]
[2021-03-25 21:58] LABS: Bilirubin,Urine NEG (Negative); Blood,Urine NEG (Negative); Color,Urine Yellow (Yellow); Protein,Urine <15 mg/dL mg/dL (Negative)
--- NOTE | 2021-03-25 22:04 | Emergency Department Report ---
ED Psych HPI - General Chief Complaint: Medical Clearance Stated Complaint: SI ATTEMPT Time Seen by Provider: 03/25/21 20:13 Source: patient Mode of arrival: Wheelchair - History of Present Illness Initial Comments: 66-year-old female, history of depression, lupus, diabetes, hypertension, presents from personal usp for mental health assessment. Intake form from EMS states ER visit is for suicidal thoughts. Patient states she told her caregiver, "I would rather than to have to live in that place," referring to her personal usp. Patient states she was not threatening suicide. She is not having suicidal thoughts. Patient's only complaint is abdominal pain, di ffuse, which she states has been present for several months now. Patient is requesting something to eat. Unable to contact anyone patients personal usp. MD Complaint: other -: This evening Associated Psychiatric Symptoms: none Improves With: none Worsens With: none Associated Symptoms: other (Abdominal pain). denies: nausea, vomiting - Related Data Previous Rx's Medication Instructions Recorded Last Taken Type Acetaminophen [Acetaminophen TAB] 325 mg PO Q4H PRN #5 tablet 08/27/17 Unknown Rx Metoclopramide [Reglan ORAL LIQ] 10 mg PO Q8H PRN #5 day 08/27/17 Unknown Rx oxyCODONE /ACETAMINOPHEN [Percocet 1 tab PO Q4H PRN #12 tablet 08/27/17 Unknown Rx 5/325 mg] Blood Sugar Diagnostic, Drum 1 each PRN #60 strip 09/25/17 Unknown Rx [Accu-Chek Compact Plus Strips] Blood-Glucose Meter [Accu-Chek 1 each PRN #1 each 09/25/17 Unknown Rx Guide Monitor System] Ibuprofen [Motrin 800 MG tab] 800 mg PO Q8HR PRN #30 tablet 09/25/17 Unknown Rx Insulin NPH, Human [NovoLIN N] 7 unit SUB-Q BIDDIAB #30 day 09/25/17 Unknown Rx Insulin Regular, Human [HumuLIN R] 1 units SUB-Q ACHS PRN #30 day 09/25/17 Unknown Rx Syringe and Needle,Insulin,1Ml 1 each PRN #60 disp.syrin 09/25/17 Unknown Rx [Insulin Syringe/Needle 1 ML] lisinopriL [Zestril TAB] 10 mg PO QDAY #30 tablet 09/25/17 Unknown Rx amLODIPine 10 mg PO QDAY #30 tablet 07/04/19 Unknown Rx busPIRone [Buspar] 5 mg PO BID #60 tablet 07/04/19 Unknown Rx hydrOXYzine PAMOATE [Vistaril] 25 mg PO Q6H PRN #30 capsule 07/04/19 Unknown Rx Dicyclomine [Bentyl] 20 mg PO QID PRN #20 tablet 08/18/19 Unknown Rx Ondansetron [Zofran Odt] 4 mg PO Q8HR PRN #20 tab.rapdis 08/18/19 Unknown Rx Dicyclomine [Bentyl] 20 mg PO QID #30 tablet 07/23/20 Unknown Rx Ondansetron [Zofran Odt] 4 mg PO Q8HR PRN #14 tab.rapdis 07/23/20 Unknown Rx traMADoL [Ultram 50 MG tab] 50 mg PO Q4HR PRN #14 tablet 07/23/20 Unknown Rx Allergies Allergy/AdvReac Type Severity Reaction Status Date / Time No Known Allergies Allergy Verified 09/25/17 08:53 ED Review of Systems ROS: Stated complaint: SI ATTEMPT Other details as noted in HPI Comment: All other systems reviewed and negative Psychiatric: denies: auditory hallucinations, visual hallucinations, homicidal thoughts, suicidal thoughts ED Past Medical Hx - Past Medical History Hx Hypertension: Yes Hx Congestive Heart Failure: No Hx Diabetes: Yes Hx Asthma: No Hx COPD: No Hx HIV: No Additional medical history: Lupus - Surgical History Hx Cholecystectomy: Yes Hx Appendectomy: Yes - Social History Smoking Status: Never Smoker Substance Use Type: None - Medications Home Medications: Home Medications Medication Instructions Recorded Confirmed Last Taken Type Acetaminophen [Acetaminophen TAB] 325 mg PO Q4H PRN #5 tablet 08/27/17 07/02/19 Unknown Rx Metoclopramide [Reglan ORAL LIQ] 10 mg PO Q8H PRN #5 day 08/27/17 07/02/19 Unkn own Rx oxyCODONE /ACETAMINOPHEN [Percocet 1 tab PO Q4H PRN #12 tablet 08/27/17 07/02/19 Unknown Rx 5/325 mg] Blood Sugar Diagnostic, Drum 1 each PRN #60 strip 09/25/17 07/02/19 Unknown Rx [Accu-Chek Compact Plus Strips] Blood-Glucose Meter [Accu-Chek 1 each MC PRN #1 each 09/25/17 07/02/19 Unknown Rx Guide Monitor System] Ibuprofen [Motrin 800 MG tab] 800 mg PO Q8HR PRN #30 tablet 09/25/17 07/02/19 Unknown Rx Insulin NPH, Human [NovoLIN N] 7 unit SUB-Q BIDDIAB #30 day 09/25/17 07/02/19 Unknown Rx Insulin Regular, Human [HumuLIN R] 1 units SUB-Q ACHS PRN #30 day 09/25/17 07/02/19 Unknown Rx Syringe and Needle,Insulin,1Ml 1 each MC PRN #60 disp.syrin 09/25/17 07/02/19 Unknown Rx [Insulin Syringe/Needle 1 ML] lisinopriL [Zestril TAB] 10 mg PO QDAY #30 tablet 09/25/17 07/02/19 Unknown Rx amLODIPine 10 mg PO QDAY #30 tablet 07/04/19 Unknown Rx busPIRone [Buspar] 5 mg PO BID #60 tablet 07/04/19 Unknown Rx hydrOXYzine PAMOATE [Vistaril] 25 mg PO Q6H PRN #30 capsule 07/04/19 Unknown Rx Dicyclomine [Bentyl] 20 mg PO QID PRN #20 tablet 08/18/19 Unknown Rx Ondansetron [Zofran Odt] 4 mg PO Q8HR PRN #20 tab.rapdis 08/18/19 Unknown Rx Dicyclomine [Bentyl] 20 mg PO QID #30 tablet 07/23/20 Unknown Rx Ondansetron [Zofran Odt] 4 mg PO Q8HR PRN #14 tab.rapdis 07/23/20 Unknown Rx traMADoL [Ultram 50 MG tab] 50 mg PO Q4HR PRN #14 tablet 07/23/20 Unknown Rx ED Physical Exam - General Limitations: No Limitations General appearance: alert, in no apparent distress - Head Head exam: Present: atraumatic, normocephalic - Eye Eye exam: Present: normal appearance, EOMI - ENT ENT exam: Present: mucous membranes moist - Neck Neck exam: Present: normal inspection - Respiratory Respiratory exam: Present: normal lung sounds bilaterally. Absent: respiratory distress - Cardiovascular Cardiovascular Exam: Present: regular rate, normal rhythm - GI/Abdominal GI/Abdominal exam: Present: soft, tenderness (Mild diffuse). Absent: distended - Extremities Exam Extremities exam: Present: normal inspection - Neurological Exam Neurological exam: Present: alert, oriented X3 - Psychiatric Psychiatric exam: Present: normal affect, normal mood - Skin Skin exam: Present: warm, dry, intact, normal color ED Course Vital Signs 03/25/21 03/25/21 18:20 20:29 Temperature 98.7 F 97.3 F L Pulse Rate 88 86 Respiratory 16 18 Rate Blood Pressure 164/92 106/79 [Right] O2 Sat by Pulse 99 99 Oximetry ED Medical Decision Making - Lab Data Result diagrams: 03/25/21 20:57 03/25/21 20:57 - Medical Decision Making 66-year-old female, history of depression, presents to ED with report of suicidal ideations. Patient denies. Patient complained of some abdominal pain, labs are unremarkable. Patient appears to have some chronic abdominal pain, as patient has had multiple visits in the past in which she has been worked up for abdominal pain. Vital signs are stable. Patient is clear for mental health assessment. Will dispo per psych. Critical care attestation.: If time is entered above; I have spent that time in minutes in the direct care of this critically ill patient, excluding procedure time. ED Disposition Condition: Stable Referrals: PRIMARY CARE, [Primary Care Provider] - 3-5 Days
[2021-03-26] MEDS ORDERED: INSULIN NPH, HUMAN 100 UNIT/1 ML SUB-Q SCH (08:00)
[2021-03-26 08:19] VITALS: BP 129/67
[2021-03-26] MEDS ORDERED: DICYCLOMINE 20 MG TAB PO SCH (10:00)
[2021-03-26] MEDS ORDERED: LISINOPRIL 10 MG TAB PO SCH (10:00)
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
--- NOTE | 2021-03-26 10:26 | Event Note ---
No current issues. Vital signs stable. Awaiting appropriate placement. Case management consultation requested by psychiatric team.
== END 2021-03-26 16:01 | disposition home or self-care (01) ==
LOC: ED 18:10
DX: R45.851 Suicidal ideations (principal); I10 Essential (primary) hypertension; E11.9 Type 2 diabetes mellitus without complications; Z90.49 Acquired absence of other specified parts of digestive tract; Z79.899 Other long term (current) drug therapy; Z79.4 Long term (current) use of insulin
CPT/HCPCS: 36415; 74022; 80048; 80076; 80307; 80320; 81001; 82962; 83690; 85025; 96372; 99284; G0480; J1815